=== PATIENT | male | born 1970 | race Caucasian/White ===

== ENCOUNTER 2022-03-22 11:34 | Observation (INO) | payer BC, OTHER ==
--- OUTSIDE RECORDS SUMMARY | 2022-03-22 11:49 | XMS REPORT | Continuity of Care Document ---
:1970 Author Organization [facility] t Address [address] [place] [address] Dr. Hsieh [address] [place] [address] Care Team Providers Name Role Phone SHIRLEYDARIN RIDGE Talya Primary Care Physician Unavailable DAR GAITAN Attending Clinician Unavailable Dar Art Attending Clinician Doctor Unassigned, [facility] Attending Clinician Unavailable LUÍS ANDERSON Attending Clinician Unavailable Luís Arevalo Attending Clinician Shaina Dyson MD Attending Clinician SHAINA DYSON Attending Clinician Unavailable DAR GAITAN Admitting Clinician Unavailable SHAINA DYSON Admitting Clinician Unavailable Payers Payer Name Policy Type Policy Number Effective Date Expiration Date [facility] [id number] 2019 00:00:00 Problems Condition Condition Condition Status Onset Resolution Last Treating Co mments Source Name Details Category Date Date Treatment Clinician Date No known No known Disease Unive rs active active ity of problems problems [facility] Allergies, Adverse Reactions, Alerts Allergy Allergy Status Severity Reaction(s) Onset Inactive Treating Comm ents Source Name Type Date Date Clinician NO KNOWN Drug Active Univers ALLERGIE Class ity of [facility] Social History Social Habit Start Date Stop Date Quantity Comments Source Exposure to 2022-03-04 2022-03-14 Not sure [facility] SARS-CoV-2 (event) 00:00:00 09:57:00 Medica l Branch Sex Assigned At [birth year] [facility] 00:00:00 00:00:00 Medical Branch Smoking Status Start Date Stop Date Source Tobacco smoking consumption [facility] Medical unknown Branch Medications Ordered Filled Start Stop Current Ordering Indication Dosage Frequency Signature Comments Components Source Medication Medication Date Date Medication? Clinician (SIG) Name Name dicyclomine 2021-04 No 20mg 20 mg, Uni vers (BENTYL) 05-14 Intramuscu ity of injection 17:15: 16:29 [place], ONCE[place] 20 mg 00 :00 1 dose, On Medical Sun Branch 03/14/22 at 1115, TEREZA NaCl 0.9% 2021-04 No 1000mL at 999 Uni vers (NS) bolus 05-14 mL/hr, ity of infusion 17:00: 18:35 1,000 mL, Micah as 1,000 mL 00 :00 IV Medical Infusion, Branch ONCE, 1 dose, On Sun03/14/22 at 1100, TEREZA ondansetron 2021-04 No 4mg 4 mg, Slow Univers (ZOFRAN 05-14 IV Push, ity of (PF)) 16:15: 16:11 ONCE, 1 [place] injection 4 00 :00 dose, On Medi [place] mg Sun Branch 03/14/22 at 1015, TEREZA dicyclomine 2021-04 Yes [id number] 20mg Take 1 Univers 20 mg 1-22 tablet by ity of tablet 00:00: mouth 4 [place] 00 (four) Medical times Branch daily as needed for Abdominal pain. ondansetron 2021-04 Yes [id number] 4mg Take 1 Univers 4 mg 1-22 tablet by ity of disintegrat 00:00: mouth [place] ing tablet 00 every 8 Medica l (eight) Branch hours as needed for Nausea and Vomiting (N/V). NaCl 0.9% No 1000mL at 999 Uni vers (NS) bolus 12-21 0901 mL/hr, ity of infusion 23:15: 00:13 1,000 mL, Micah as 1,000 mL 00 :00 IV Medical Infusion, Branch ONCE, 1 dose, On 8/31/22 at 1815, STAT dexamethaso 2020-0 2020- No 10mg 10 mg, Uni vers ne 05-13 Intramuscu ity of (DECADRON 14:00: 13:04 lar, ONCE, [place] PHOSPHATE) 00 :00 1 dose, Medica l injection Tue Branch 10 mg 05/13/19 at 0800, STAT ibuprofen 2020-0 Yes [id number] 800mg Take 1 U nivers 800 mg 1-21 tablet by ity of tablet 00:00: mouth [place] 00 every 8 Medical (eight) Branch hours as needed for Pain (scale 4-6). ibuprofen 2020-0 Yes [id number] 800mg Take 1 U nivers 800 mg 1-21 tablet by ity of tablet 00:00: mouth [place] 00 every 8 Medical (eight) Branch hours as needed for Pain (scale 4-6). ibuprofen 2020-0 Yes [id number] 800mg Take 1 U nivers 800 mg 1-21 tablet by ity of tablet 00:00: mouth [place] 00 every 8 Medical (eight) Branch hours as needed for Pain (scale 4-6). ibuprofen 2020-0 Yes [id number] 800mg Take 1 U nivers 800 mg 1-21 tablet by ity of tablet 00:00: mouth [place] 00 every 8 Medical (eight) Branch hours as needed for Pain (scale 4-6). ibuprofen 2020-0 Yes [id number] 800mg Take 1 U nivers 800 mg 1-21 tablet by ity of tablet 00:00: mouth [place] 00 every 8 Medical (eight) Branch hours as needed for Pain (scale 4-6). acetaminoph 2014-04 Yes 1{tbl} Take 1 Tab Univers en-codeine 1-03 by mouth ity o f (TYLENOL-CO 00:00: every 4 [place] as DEINE #3) 00 (four) Medical 300-30 mg hours as Branch tablet needed for Pain (scale 7-10). acetaminoph 2014-04 Yes 1{tbl} Take 1 Tab Univers en-codeine 1-03 by mouth ity o f (TYLENOL-CO 00:00: every 4 [place]ah as DEINE #3) 00 (four) Medical 300-30 mg hours as Branch tablet needed for Pain (scale 7-10). acetaminoph 2014-04 Yes 1{tbl} Take 1 Tab Univers en-codeine 1-03 by mouth ity o f (TYLENOL-CO 00:00: every 4 [place] as DEINE #3) 00 (four) Medical 300-30 mg hours as Branch tablet needed for Pain (scale 7-10). acetaminoph 2014-04 Yes 1{tbl} Take 1 Tab Univers en-codeine 1-03 by mouth ity o f (TYLENOL-CO 00:00: every 4 Micah as DEINE #3) 00 (four) Medical 300-30 mg hours as Branch tablet needed for Pain (scale 7-10). acetaminoph 2014-04 Yes 1{tbl} Take 1 Tab Univers en-codeine 1-03 by mouth ity o f (TYLENOL-CO 00:00: every 4 [place]ah as DEINE #3) 00 (four) Medical 300-30 mg hours as Branch tablet needed for Pain (scale 7-10). Vital Signs Vital Name Observation Time Observation Value Comments Source Heart rate 2022-03-14 17:50:00 91 /min [facility] Respiratory rate 2022-03-14 17:50:00 17 /min [facility] Oxygen saturation in 2022-03-14 17:50:00 98 /min [facility] Arterial blood by [facility] Pulse oximetry Branch Systolic blood 2022-03-14 17:50:00 116 mm[facility]Hg[facility] 2022-03-14 17:50:00 78 mm[Hg] Unive [facility] Body temperature 2022-03-14 15:58:00 36.67 Samantha [facility] Body height 2022-03-14 15:58:00 175.3 cm [facility] Body weight 2022-03-14 15:58:00 80.74 kg [facility] BMI 2022-03-14 15:58:00 26.29 kg/m2 [facility] Systolic blood 2021-12-21 23:28:00 141 mm[Hg] Univer [facility]ity [facility] Diastolic blood 2021-12-21 23:28:00 99 mm[Hg] [facility] 2021-12-21 23:28:00 105 /min [facility] Oxygen saturation in 2021-12-21 23:28:00 99 /min University of Arterial blood by [facility] Pulse oximetry Branch Body temperature 2021-12-21 21:05:00 36.94 Samantha [facility] Respiratory rate 2021-12-21 21:05:00 18 /min [facility] Body height 2021-12-21 21:05:00 175.3 cm Universi ty of [facility] Body weight 2021-12-21 21:05:00 95.255 kg Universi ty of [facility] BMI 2021-12-21 21:05:00 31.01 kg/m2 Universi ty of [facility] Body height 2019-05-13 12:17:00 175.3 cm Universi ty of [facility] Body weight 2019-05-13 12:17:00 99.791 kg Universi ty of [facility] BMI 2019-05-13 12:17:00 32.49 kg/m2 Universi ty [facility] Oxygen saturation in 2019-05-13 12:17:00 98 /min University of Arterial blood by [facility] Pulse oximetry Branch Systolic blood 2019-05-13 12:17:00 144 mm[Hg] [facility] sit of pressure [facility] Diastolic blood 2019-05-13 12:17:00 97 mm[Hg] [facility] Heart rate 2019-05-13 12:17:00 73 /min Universi ty [facility] Body temperature 2019-05-13 12:17:00 36.11 Samantha [facility] Respiratory rate 2019-05-13 12:17:00 12 /min [facility] Procedures Procedure Date / Time Performing Clinician Source Performed US GALL BLADDER 2022-03-14 16:51:00 Dar Gaitan [facility] LIPASE 2022-03-14 16:08:00 Dar Gaitan [facility] TROPONIN I 2022-03-14 16:08:00 Dar Gaitan [facility] COMP. METABOLIC PANEL 2022-03-14 16:08:00 Dar Gaitan [facility] ([id number]) [facility] CBC WITH DIFF 2022-03-14 16:08:00 Dar Gaitan [facility] PROTHROMBIN TIME / INR 2022-03-14 16:08:00 Dar Gaitan [facility] URINALYSIS 2022-03-14 16:06:00 Dar Gaitan [facility] CONSENT/REFUSAL FOR 2022-03-14 15:50:19 Doctor Unassigned, No [facility] [place] [facility] Name Medical Branch LIPASE 2021-12-21 22:16:00 Luís Anderson [facility] CBC WITH DIFF 2021-12-21 22:16:00 Luís Anderson [facility] CONSENT/REFUSAL FOR 2021-12-21 20:56:27 Doctor Unassigned, No [facility] Name [facility] AUTHORIZATION FOR 2019-07-03 05:01:00 Doctor Unassigned, No [facility] RELEASE OF PHI Name [facility] XR LUMBAR SPINE 3 VW 2019-05-13 12:52:24 Shaina Dyson [facility] Encounters Start End Encounter Admission Attending Care Care Encounter Source Date/Time Date/Time Type Type Clinicians Facility Department ID 2022-03-14 2022-03-14 Emergency [facility] [id number] Univers 09:59:00 12:40:00 DAR sanders [facility] 2022-03-14 2022-03-14 Emergency Arnie [facility] [id number] Univers 09:59:00 12:40:00 Dar DALTON 350.1.13.10 i ty of [place] 4.2.7.2.686 [facility] [id number] [facility] 084 Branch 2022-03-14 2022-03-14 Orders Doctor TERESO [id number] Univers 00:00:00 00:00:00 Only UnassignedARELI 350.1.13.[address] [place] [facility] 4.2.7.2.686 [facility] [id number] [facility] 009 Branch 2021-12-21 2021-12-21 Emergency X MONICA [facility] ERT [id number] Univers 16:07:00 19:12:00 LUÍS sanders [facility] 2021-12-21 2021-12-21 Emergency [facility] [id number] Univers 16:07:00 19:12:00 Luís DALTON 350.1.13.10 i ty [facility] 4.2.7.2.686 [facility] [id number] [address] 2019-07-03 2019-07-03 Orders Doctor TERESO [id number] Univers 00:00:00 00:00:00 Only Unassigned, ARELI 350.1.13.[address] [place] [facility] 4.2.7.2.686 [place] [id number] [address] 2019-05-13 2019-05-13 Emergency [facility] [id number] Univers 06:13:04 07:59:00 Shaina Dalton 350.1.13.10 ity of [place] 4.2.7.2.686 [facility] [id number] [address] 2019-05-13 2019-05-13 Emergency X [facility] ERT [id number] Univers 06:13:04 07:59:00 [facility] Results Test Description Test Time Test Comments Results Result Comments Source LIPASE 2022-03-14 17:52:25 Test Item Value Reference Range Interpretation Comme nts LIPASE (test code = 6507082068) 22 U/L 0-220 Lab Interpretation (test code = 74722-0) Normal [facility] [id number] 17:04:38 Test Item Value Reference Interpretation Comments Range TROPONIN I (test 0.012 ng/mL See_Comment [Automated code = 7164308733) message] The system which generated this result transmitted reference range : <=0.034. The reference range was not used to interpret this result as normal/abnormal . REANNA (test code = Reference (Normal) REANNA) Range (defined by the 99th percentile reference limit): <= 0.034 ng/mL Note: Cardiac troponin begins to rise 3-4 hours after the onset of ischemia. Repeat in 4-6 hours if the sample was drawn within 3-4 hours of the onset of the symptom and found normal. Diagnosis of myocardial injury is made with acute changes in cTn concentrations with at least one serial sample above the 99th percentile upper reference limit (URL), taken together with the patient's clinical presentation. Biotin has been reported to cause a negative bias, interpret results relative to patient's use of biotin. Lab Interpretation Normal (test code = 83189-1) [facility]. METABOLIC PANEL (70959)2022-03-14 16:52:58 Test Item Value Reference Range Interpretation Comments NA (test code = 137 mmol/L 135-145 9514342486) K (test code = 4.9 mmol/L 3.5-5.0 8285380458) CL (test code = 105 mmol/L 98-108 3967964135) CO2 TOTAL (test code = 12 mmol/L 23-31 L 9472580257) AGAP (test code = 2-16 H 6677524493) BUN (test code = 4 mg/dL 7-23 L 5091943196) GLUCOSE (test code = 106 mg/dL 70-110 0028919385) CREATININE (test code = 0.63 mg/dL 0.60-1.25 4037255266) TOTAL BILI (test code = 0.6 mg/dL 0.1-1.4 2861106458) CALCIUM (test code = 9.8 mg/dL 8.6-10.6 3753279908) T PROTEIN (test code = 6.9 g/dL 6.3-8.2 6661704245) ALBUMIN (test code = 4.7 g/dL 3.5-5.0 2673110486) ALK PHOS (test code = 114 U/L 34-122 8431908871) ALTv (test code = 23 U/L 5-50 1742-6) AST(SGOT) (test code = 37 U/L 13-40 7336443590) eGFR (test code = mL/min/1.73m2 0290912774) REANNA (test code = REANNA) Association of Glomerular Filtration Rate (GFR) and Staging of Kidney Disease* + --+ --+ ------+| GFR (mL/min/1.73 m2) ?| With Kidney Damage ?| ?Without Kidney Damage+ --------+ --------+ +| ?>90 ?| ?Stage one ?| ? Normal ?+ ---+ ---+ -------+| ?60-89 ?| ?Stage two ?| ? Decreased GFR ? + --+ --+ ------+| ?30-59 ?| ?Stage three ?| ? Stage three ? + --+ --+ ------+| ?15-29 ?| ?Stage four ? | ? Stage four ?+ ---+ ---+ -------+| ?<15 (or dialysis) ? ?| ?Stage five ? | ? Stage five ?+ ---+ ---+ -------+ *Each stage assumes the associated GFR level has been in effect for at least three months. ?Stages 1 to 5, with or without kidney disease, indicate chronic kidney disease. Notes: Determination of stages one and two (with eGFR >59mL/min/1.73 m2) requires estimation of kidney damage for at least three months as defined by structural or functional abnormalities of the kidney, manifested by either:Pathological abnormalities or Markers of kidney damage (including abnormalities in the composition of the blood or urine or abnormalities in imaging tests). Lab Interpretation Abnormal (test code = 94216-6) [facility] / [id number] 16:50:34 Test Item Value Reference Range Interpretation Comments PROTIME PATIENT (test See_Comment [Auto mated message] code = 5964-2) The system wh ich generated this result transmitted ref erence range: 12.0 - 1 4.7 Seconds. The re ference range was not u sed to interpret this result as normal/abnor mal. INR (test code = 6301-6) Nor mal INR <1.1; Warfarin Therap eutic range 2.0 to 3. 0 or 2.5 to 3.5, dep ending upon the indica tions. Lab Interpretation (test Normal code = 89691-3) [facility] WITH [id number] 16:32:56 Test Item Value Reference Range Interpretation Comments WBC (test code = See_Comment H [Automated 6690-2) message] The sy stem which generated this result transmitted reference range : 4.20 - 10.70 10*3/?L. The reference range was not used to interpret this result as normal/abnormal . RBC (test code = See_Comment [Automated 789-8) message] The sy stem which generated this result transmitted reference range : 4.26 - 5.52 10*6/?L. The reference range was not used to interpret this result as normal/abnormal . HGB (test code = 14.0 g/dL 12.2-16.4 718-7) HCT (test code = 42.8 % 38.4-49.3 4544-3) MCV (test code = 99.5 fL 81.7-95.6 H 787-2) MCH (test code = 32.6 pg 26.1-32.7 785-6) MCHC (test code = 32.7 g/dL 31.2-35.0 786-4) RDW-SD (test code = 62.2 fL 38.5-51.6 H 98451-7) RDW-CV (test code = 16.8 % 12.1-15.4 H 788-0) PLT (test code = See_Comment [Automated 777-3) message] The sy stem which generated this result transmitted reference range : 150 - 328 10*3/ ?L. The reference r morena was not used to interpret this result as normal/abnormal . MPV (test code = 10.0 fL 9.8-13.0 22662-9) NRBC/100 WBC (test See_Comment [Automat ed code = 7320423926) message] The system which generated this result transmitted reference range : 0.0 - 10.0 /100 WBCs. The refer ence range was not u sed to interpret th is result as normal/abnormal . NRBC x10^3 (test code See_Comment [Auto mated = 8707329259) message] The s ystem which generated this result transmitted reference range : 10*3/?L. The reference range was not used to interpret this result as normal/abnormal . GRAN MAT (NEUT) % 73.8 % (test code = 770-8) IMM GRAN % (test code 0.30 % = 8019792755) LYMPH % (test code = 18.6 % 736-9) MONO % (test code = 6.5 % 5905-5) EOS % (test code = 0.3 % 713-8) BASO % (test code = 0.5 % 706-2) GRAN MAT x10^3(ANC) 9.63 10*3/uL 1.99-6.95 H (test code = 4720155456) IMM GRAN x10^3 (test 0.04 10*3/uL 0.00-0.06 code = 5111158198) LYMPH x10^3 (test code 2.43 10*3/uL 1.09-3.23 = 731-0) MONO x10^3 (test code 0.85 10*3/uL 0.36-1.02 = 742-7) EOS x10^3 (test code = 0.04 10*3/uL 0.06-0.53 L 711-2) BASO x10^3 (test code 0.06 10*3/uL 0.01-0.09 = 704-7) Lab Interpretation Abnormal (test code = 93382-2) [facility] 22:47:58 Test Item Value Reference Range Interpretation Comments LIPASE (test code = 8235164491) 51 U/L 0-220 Lab Interpretation (test code = Normal 11910-3) [facility] WITH [id number] 22:32:40 Test Item Value Reference Range Interpretation Comments WBC (test code = See_Comment H [Automated 9590-2) message] The system which generated this result transmit delma reference range : 4.20 - 10.70 10*3/?L. The reference range was not used to interpret this result as normal/abnormal . RBC (test code = See_Comment [Automated 209-8) message] The system which generated this result transmit delma reference range : 4.26 - 5.52 10*6/?L. The reference range was not used to interpret this result as normal/abnormal . HGB (test code = 15.7 g/dL 12.2-16.4 718-7) HCT (test code = 47.1 % 38.4-49.3 4544-3) MCV (test code = 91.6 fL 81.7-95.6 787-2) MCH (test code = 30.5 pg 26.1-32.7 785-6) MCHC (test code = 33.3 g/dL 31.2-35 786-4) RDW-SD (test code = 55.8 fL 38.5-51.6 H 04818-9) RDW-CV (test code = 16.6 % 12.1-15.4 H 788-0) PLT (test code = See_Comment [Automated 777-3) message] The system which generated this result transmit delma reference range : 150 - 328 10*3/ ?L. The reference range was not u sed to interpret th is result as normal/abnormal . MPV (test code = 9.0 fL 9.8-13 L 21875-8) NRBC/100 WBC (test See_Comment [Automat ed code = 9341970912) message] The system which generated this result transmit delma reference range : 0.0 - 10.0 /100 WBCs. The reference range was not used to interpret this result as normal/abnormal . NRBC x10^3 (test code See_Comment [Auto mated = 3298374490) message] The system which generated this result transmit delma reference range : 10*3/?L. The reference range was not used to interpret this result as normal/abnormal . GRAN MAT (NEUT) % 73.6 % (test code = 770-8) IMM GRAN % (test code 0.70 % = 1622580690) LYMPH % (test code = 19.2 % 736-9) MONO % (test code = 6.0 % 5905-5) EOS % (test code = 0.2 % 713-8) BASO % (test code = 0.3 % 706-2) GRAN MAT x10^3(ANC) 10.00 10*3/uL 1.99-6.95 H (test code = 0674794160) IMM GRAN x10^3 (test 0.09 10*3/uL 0-0.06 H code = 4411988808) LYMPH x10^3 (test code 2.61 10*3/uL 1.09-3.23 = 731-0) MONO x10^3 (test code 0.82 10*3/uL 0.36-1.02 = 742-7) EOS x10^3 (test code = 0.03 10*3/uL 0.06-0.53 L 711-2) BASO x10^3 (test code 0.04 10*3/uL 0.01-0.09 = 704-7) Lab Interpretation Abnormal (test code = 73714-5) [facility] 3 [id number] 12:58:41 1. Mild multilevel degenerative disc disease.2. Moderate facet arthropathy at L4-5 and L5-S1 RL: 3901 AFC: [id number] End of report ORDERING PHYSICIAN: JENNI DYSON TECHNIQUE: Lumbar spine 3 views HISTORY: Back pain COMPARISON: None FINDINGS:There are 5 lumbar vertebra. The alignment of the lumbar spine is normal. There is mild multilevel degenerative disc disease. There is moderate facet arthropathy at L4- 5 and L5-S1. The vertebral body heights are well preserved. [facility], Radiant Results Inft User - 05/13/2019 6:59 AM CSTORDERING PHYSICIAN:SHAINA ABURTOMATECHNIQUE: Lumbar spine 3 viewsHISTORY: Back painCOMPARISON: NoneFINDINGS:There are 5lumbar vertebra.The alignment of the lumbar spine is normal.There is mild multilevel degenerative disc disease.There is moderate facet arthropathy at L4-5 and L5-S1.The vertebral body heights are well p reserved.IMPRESSION1. Mild multilevel degenerative disc disease.2. Moderate facet arthropathy at L4-5 and L5-S1RL: 3901AFC: [id number] of report [facility]"
--- NOTE | 2022-03-22 13:32 | ER ---
Nurse's Notes [facility] Name: Jim Porras Age: 52 yrs Sex: Male : 1970 Arrival Date: 03/22/2022 Time: 11:36 Bed 14 Private MD: Yinka Malik P Diagnosis: Abdominal Pain - Intractable Presentation: 03/22 12:00 Chief complaint: Patient states: Gallbladder problems for 2 months. Sent in for eval by ll1 Dr. Malik. Coronavirus screen: Vaccine status: Patient reports being unvaccinated. Client denies travel out of the [place] in the last 14 days. At this time, the client does not indicate any symptoms associated with coronavirus-19. Ebola Screen: Patient denies travel to an Ebola-affected area in the 21 days before illness onset. Initial Sepsis Screen: Does the patient meet any 2 criteria? No. Patient's initial sepsis screen is negative. Does the patient have a suspected source of infection? Yes: Acute abdominal pain. Risk Assessment: Do you want to hurt yourself or someone else? Patient reports no desire to harm self or others. Onset of symptoms was January 20, 2022. 12:00 Method Of Arrival: Ambulatory ll1 12:00 Acuity: TISHA 3 ll1 Triage Assessment: 12:02 General: Appears uncomfortable, ill, Behavior is cooperative, appropriate for age. ll1 Pain: Complains of pain in abdomen Pain currently is 10 out of 10 on a pain scale. Neuro: No deficits noted. Cardiovascular: No deficits noted. Respiratory: No deficits noted. GI: Reports upper abdominal pain, nausea, vomiting. Historical: - Allergies: 12:00 No Known Allergies; ll1 - PMHx: 12:00 None; ll1 - PSHx: 12:00 None; ll1 - Immunization history:: Client reports having NOT received the Covid vaccine. - Social history:: Smoking status: Patient reports the use of cigarette tobacco products, smokes one pack cigarettes per day. Screenin:58 Abuse screen: Denies threats or abuse. Denies injuries from another. Nutritional db screening: No deficits noted. Tuberculosis screening: No symptoms or risk factors identified. Fall Risk None identified. No fall in past 12 months (0 pts). No secondary diagnosis (0 pts). No IV (0 pts). Ambulatory Aid- None/Bed Rest/Nurse Assist (0 pts). Gait- Normal/Bed Rest/Wheelchair (0 pts) Mental Status- Oriented to own ability (0 pts). Total Davalos Fall Scale indicates No Risk (0-24 pts). Assessment: 13:25 Reassessment: No changes from previously documented assessment. States he is leaving "I ll1 guess y'all don't have time for Dr. Springer patients, this is ridiculous." Gait steady out ER doors. Charge Nurse informed. 13:45 Reassessment: No changes from previously documented assessment. Gait steady to exam ll1 room #14. 14:56 Reassessment: Patient appears in no apparent distress at this time. Patient and/or db family updated on plan of care and expected duration. Pain level reassessed. Patient is alert, oriented x 3, equal unlabored respirations, skin warm/dry/pink. General: Appears in no apparent distress. distressed, uncomfortable, Behavior is calm, cooperative, appropriate for age. Pain: Complains of pain in abdomen. Neuro: No deficits noted. Level of Consciousness is awake, alert, obeys commands, Oriented to person, place, time, situation, Appropriate for age Speech is normal. Cardiovascular: No deficits noted. Respiratory: No deficits noted. Airway is patent. GI: Reports lower abdominal pain. : No deficits noted. : No signs and/or symptoms were reported regarding the genitourinary system. EENT: No deficits noted. No signs and/or symptoms were reported regarding the EENT system. Derm: No deficits noted. No signs and/or symptoms reported regarding the dermatologic system. Musculoskeletal: No deficits noted. No signs and/or symptoms reported regarding the musculoskeletal system. 15:25 Reassessment: Patient appears in no apparent distress at this time. NOTIFIED LAB FOR db RECOLLECT. 15:40 Reassessment: LAB FOR RECOLLECT AT BEDSIDE. db 17:48 Reassessment: PATIENT TO CT. db 19:10 General: Appears in no apparent distress. uncomfortable, well groomed, well developed, pf1 Behavior is calm, cooperative, appropriate for age, quiet. 19:10 Pain: Complains of pain in Patient C/O RUQ pain of 6,onset 2months. Patient stated has pf1 lost a total of 64lbs in the past 58 days. Neuro: No deficits noted. Level of Consciousness is awake, alert, obeys commands, Oriented to person, place, time, situation. Cardiovascular: No deficits noted. Respiratory: No deficits noted. Airway is patent Breath sounds are clear bilaterally. GI: Abd is soft Abdomen is tender to palpation in right upper quadrant Reports nausea, vomiting. : No deficits noted. No signs and/or symptoms were reported regarding the genitourinary system. EENT: No deficits noted. No signs and/or symptoms were reported regarding the EENT system. Derm: No deficits noted. No signs and/or symptoms reported regarding the dermatologic system. Vital Signs: 12:00 BP 140 / 86; Pulse 87; Resp 16; Temp 97.0; Pulse Ox 99% ; Weight 74.39 kg; Height 5 ft. ll1 9 in. (175.26 cm); Pain 9/10; 15:14 BP 131 / 91; Pulse 85; Resp 16; Pulse Ox 100% on R/A; db 16:04 BP 118 / 87; Pulse 77; Resp 18; Pulse Ox 100% on R/A; db 17:00 BP 121 / 76; Pulse 81; Resp 16; Pulse Ox 100% ; db 17:47 BP 129 / 93; Pulse 87; Resp 16; Pulse Ox 99% on R/A; Pain 8/10; db 18:35 BP 133 / 94; Pulse 83; Resp 16; Pulse Ox 99% on R/A; Pain 6/10; db 19:00 BP 118 / 80; Pulse 75; Resp 18; Temp 98.4; Pulse Ox 97% ; Pain 6/10; pf1 20:00 BP 133 / 87; Pulse 84; Resp 20; Temp 98.2; Pulse Ox 100% ; Pain 8/10; pf1 20:52 Pain 0/10; pf1 21:35 BP 125 / 88; Pulse 74; Resp 18; Temp 98.2; Pulse Ox 97% ; Pain 0/10; pf1 12:00 Body Mass Index 24.22 (74.39 kg, 175.26 cm) ll1 ED Course: 11:36 Patient arrived in ED. as 11:37 Yinka Malik MD is Private Physician. as 11:59 Arm band placed on. 1 12:01 [facility] 12:02 Shannen Feliciano MD is Attending Physician. [facility] 12:02 Triage completed. ll1 13:46 Patient placed in an exam room, on a stretcher. ll1 14:35 Amy Corona, SPENCER is Primary Nurse. db 14:56 Missed attempt(s): 20 gauge in left antecubital area. Bleeding controlled, band aid db applied, catheter tip intact. 14:59 Patient has correct armband on for positive identification. Bed in low position. Call db light in reach. Side rails up X 1. 15:24 Inserted saline lock: 22 gauge in right wrist, using aseptic technique. em1 18:03 CT Abd/Pelvis - IV Contrast Only In Process Unspecified. EDMS 19:44 Yinka Malik MD is Hospitalizing Provider. [facility] 20:00 Door closed. Lights dimmed. Warm blanket given. Verbal reassurance given. pf1 20:32 No provider procedures requiring assistance completed. IV is patent, with good blood pf1 return, Flushed right Patient has 22 gauge IV to Right wrist. 20:43 SARS RAPID Sent. pf1 20:51 Diet: Patient is NPO. pf1 20:51 Urine collected:. pf1 21:36 Patient admitted, IV remains in place. pf1 Administered Medications: 15:20 Drug: Zofran (Ondansetron) 4 mg Route: IVP; Site: right wrist; db 16:42 Follow up: Response: No adverse reaction db 15:21 Drug: morphine 4 mg Route: IVP; Infused Over: 4 mins; Site: right wrist; db 16:42 Follow up: Response: No adverse reaction db 17:47 Drug: morphine 4 mg Route: IVP; Infused Over: 4 mins; Site: right wrist; db 18:34 Follow up: Response: No adverse reaction db 20:25 Drug: Dilaudid (HYDROmorphone) 1 mg Route: IVP; Site: right wrist; pf1 20:43 Follow up: Response: Pain is decreased pf1 Medication: 14:58 VIS not applicable for this client. db Output: 20:53 Urine: 400ml (Voided); Total: 400ml. pf1 Outcome: 13:32 Patient left the ED. ll1 19:46 Decision to Hospitalize by Provider. jmm 21:36 Admitted to Med/surg accompanied by tech, via wheelchair, room 203, with chart, Report pf1 called to SPENCER Ervin 21:36 Condition: improved 21:36 Instructed on the need for admit. 21:40 Patient left the ED. pf1 Signatures: Dispatcher [employer] EDMS Stephane nAsari PA PA jmm Martinez, Amelia as Martinez, Eric em1 Irene Moran RN RN ll1 Amy Corona RN RN db Renetta singh RN RN pf1
[2022-03-22] MEDS ORDERED: MORPHINE 4 MG/ML SYR ONE ×2 (14:31→17:44)
[2022-03-22] MEDS ORDERED: ONDANSETRON 4 MG/2 ML VIAL ONE (14:31)
[2022-03-22 16:14] LABS: Urine Blood Negative (Negative); Urine Glucose Negative (Negative); Urine Protein Negative (Negative); Urine Specific Gravity >=1.030 (1.005-1.030)
[2022-03-22 17:18] LABS: Absolute Lymphocytes (CBC) 1.6 K/uL (0.7-4.9); Lymphocytes % 37.1 % (15.3-44.8); MCV 97.6 fL (80-100); MPV 7.4 fL (7.6-11.3)
[2022-03-22 17:42] LABS: Albumin 3.5 g/dL (3.4-5.0); Bilirubin Total 0.2 mg/dL (0.2-1.0); Potassium 3.2 mmol/L (3.5-5.1); Protein, Total 6.9 g/dL (6.4-8.2)
--- NOTE | 2022-03-22 18:17 | RAD REPORT ---
EXAM DESCRIPTION: CTAbdomen Pelvis W Contrast - 03/22/2022 6:01 pm CLINICAL HISTORY: abdominal pain COMPARISON: No comparisons TECHNIQUE: CT of the abdomen and pelvis was performed with IV contrast. All CT scans are performed using dose optimization technique as appropriate and may include automated exposure control or mA/KV adjustment according to patient size. FINDINGS: Lower chest: No acute abnormality. Liver: No acute abnormality or suspicious lesions. Biliary: Distended gallbladder. Common bile duct is dilated measuring 13 mm. Stomach: Gastric varices along the proximal stomach. Duodenum: No significant focal abnormality. Pancreas: Pancreatic atrophy. Spleen: No significant abnormality. Adrenal: No suspicious lesions. Kidney/ureter: No hydronephrosis. Punctate bilateral renal calculi. Too small to characterize and/or benign appearing renal lesions are noted. Retroperitoneum: Mild fluid at the tip of the pancreas and extending into the left retroperitoneum. Vascular: No aneurysm. Proximal splenic vein is occluded. Bowel: No bowel obstruction. Normal appendix.. Peritoneum: No ascites or free air. Bladder: Grossly unremarkable. Reproductive: No adnexal masses. Bones: No acute fracture. Pars defects at L5-S1 . Other: n/a IMPRESSION: 1. Distended gallbladder with extrahepatic biliary ductal dilatation. No CT evidence of acute cholecystitis. MRCP or ERCP could better evaluate for choledocholithiasis. No obstructing mass is seen. 2. Small volume of fluid at the tail of the pancreas with pancreatic atrophy and splenic vein thrombo sis likely sequela of remote pancreatitis. Also noted are gastric varices as a result of collateral f low.
--- NOTE | 2022-03-22 19:47 | EDPHYS ---
Physician Documentation [facility] Name: Jim Porras Age: 52 yrs Sex: Male : 1970 Arrival Date: 03/22/2022 Time: 11:36 Bed 14 Private MD: Yinka Malik P ED Physician Shannen Feliciano HPI: 03/22 19:42 This 52 yrs old Male presents to ER via Ambulatory with complaints of gallbladder. jmm 19:42 The patient presents with abdominal pain. Onset: The symptoms/episode began/occurred jmm gradually. The symptoms do not radiate. Associated signs and symptoms: Pertinent positives: nausea and vomiting. The symptoms are described as achy. Modifying factors: The symptoms are alleviated by nothing, the symptoms are aggravated by nothing. The patient has not experienced similar symptoms in the past. Patient has been seen 2 times at [place] ED diagnosed with cholelithiasis. Patient visited with Dr. Malik who sent the patient to the ED for further evaluation.. Historical: - Allergies: 12:00 No Known Allergies; ll1 - PMHx: 12:00 None; ll1 - PSHx: 12:00 None; ll1 - Immunization history:: Client reports having NOT received the Covid vaccine. - Social history:: Smoking status: Patient reports the use of cigarette tobacco products, smokes one pack cigarettes per day. ROS: 19:42 Constitutional: Negative for fever, chills, and weight loss, Cardiovascular: Negative jmm for chest pain, palpitations, and edema, Respiratory: Negative for shortness of breath, cough, wheezing, and pleuritic chest pain. 19:42 Abdomen/GI: Positive for abdominal pain. 19:42 All other systems are negative. Exam: 19:42 Head/Face: atraumatic. Eyes: EOMI, no conjunctival erythema appreciated ENT: Moist jmm Mucus Membranes Neck: Trachea midline, Supple Chest/axilla: Normal chest wall appearance and motion. Cardiovascular: Regular rate and rhythm. No edema appreciated Respiratory: Normal respirations, no respiratory distress appreciated 19:42 Back: Normal ROM Skin: General appearance color normal MS/ Extremity: Moves all extremities, no obvious deformities appreciated, no edema noted to the lower extremities Neuro: Awake and alert Psych: Behavior is normal, Mood is normal, Patient is cooperative and pleasant 19:42 Constitutional: The patient appears alert, awake, uncomfortable. 19:42 Abdomen/GI: Inspection: abdomen appears normal, Bowel sounds: normal, Palpation: soft, mild abdominal tenderness, in the epigastric area. Vital Signs: 12:00 BP 140 / 86; Pulse 87; Resp 16; Temp 97.0; Pulse Ox 99% ; Weight 74.39 kg; Height 5 ft. ll1 9 in. (175.26 cm); Pain 9/10; 15:14 BP 131 / 91; Pulse 85; Resp 16; Pulse Ox 100% on R/A; db 16:04 BP 118 / 87; Pulse 77; Resp 18; Pulse Ox 100% on R/A; db 17:00 BP 121 / 76; Pulse 81; Resp 16; Pulse Ox 100% ; db 17:47 BP 129 / 93; Pulse 87; Resp 16; Pulse Ox 99% on R/A; Pain 8/10; db 18:35 BP 133 / 94; Pulse 83; Resp 16; Pulse Ox 99% on R/A; Pain 6/10; db 19:00 BP 118 / 80; Pulse 75; Resp 18; Temp 98.4; Pulse Ox 97% ; Pain 6/10; pf1 20:00 BP 133 / 87; Pulse 84; Resp 20; Temp 98.2; Pulse Ox 100% ; Pain 8/10; pf1 20:52 Pain 0/10; pf1 21:35 BP 125 / 88; Pulse 74; Resp 18; Temp 98.2; Pulse Ox 97% ; Pain 0/10; pf1 12:00 Body Mass Index 24.22 (74.39 kg, 175.26 cm) 1 MDM: 12:24 Patient medically screened. [facility] 19:44 Data reviewed: vital signs, nurses notes. Counseling: I had a detailed discussion with pauline the patient and/or guardian regarding: the historical points, exam findings, and any diagnostic results supporting the discharge/admit diagnosis, lab results, radiology results, the need for further work-up and treatment in the hospital. ED course: I discussed the patient with Dr. Malik whom recommended admission.. 03/22 12:02 Order name: CBC with Diff; Complete Time: 17:34 [facility] 03/22 12:02 Order name: CMP; Complete Time: 17:43 [facility] 03/22 12:02 Order name: Lipase; Complete Time: 17:43 [facility] 03/22 16:14 Order name: Urine Dipstick-Ancillary; Complete Time: 16:15 [facility] 03/22 19:55 Order name: Basic Metabolic Panel [facility] 03/22 19:55 Order name: Basic Metabolic Panel [facility] 03/22 19:55 Order name: CBC with Automated Diff [facility] 03/22 19:55 Order name: CBC with Automated Diff [facility] 03/22 19:55 Order name: Lipase [facility] 03/22 19:55 Order name: Lipase [facility] 03/22 19:55 Order name: Liver (Hepatic) Function [facility] 03/22 19:55 Order name: Liver (Hepatic) Function [facility] 03/22 20:22 Order name: SARS RAPID bb 03/22 21:03 Order name: SARS-COV-2 Antigen Rapid [facility] 03/22 12:02 Order name: IV Saline Lock; Complete Time: 15:21 [facility] 03/22 12:02 Order name: Labs collected and sent; Complete Time: 14:56 [facility] 03/22 13:51 Order name: CT Abd/Pelvis - IV Contrast Only; Complete Time: 18:19 [facility] 03/22 13:52 Order name: Urine Dipstick-Ancillary (obtain specimen); Complete Time: 16:40 [facility] 03/22 15:09 Order name: Labs - recollect needed: recollect green and lavender; Complete Time: 16:40 [facility] 03/22 19:55 Order name: NPO [facility] 03/22 19:55 Order name: Cholangiogram EDAL Administered Medications: 15:20 Drug: Zofran (Ondansetron) 4 mg Route: IVP; Site: right wrist; db 16:42 Follow up: Response: No adverse reaction db 15:21 Drug: morphine 4 mg Route: IVP; Infused Over: 4 mins; Site: right wrist; db 16:42 Follow up: Response: No adverse reaction db 17:47 Drug: morphine 4 mg Route: IVP; Infused Over: 4 mins; Site: right wrist; db 18:34 Follow up: Response: No adverse reaction db 20:25 Drug: Dilaudid (HYDROmorphone) 1 mg Route: IVP; Site: right wrist; pf1 20:43 Follow up: Response: Pain is decreased pf1 Disposition Summary: 03/22/22 19:46 Hospitalization Ordered Hospitalization Status: Observation jmm Provider: Yinka Malik Location: Telemetry/MedSurg (observation) jmm Condition: Stable jmm Problem: new jmm Symptoms: are unchanged jmm Bed/Room Type: Standard jmm Room Assignment: 203(03/22/22 21:11) cg Diagnosis - Abdominal Pain - Intractable jmm Forms: - Medication Reconciliation Form jmm - SBAR form jmm Signatures: Dispatcher [employer] EDColeen Eric Shelly, WAREHOUSE TEAM MEMBER-C WAREHOUSE TEAM MEMBER-Csnw Stephane Ansari PA PA jmm Garcia, Cindy, RN RN cg Irene Moran RN RN ll1 Amy Corona RN RN db Renetta singh RN RN pf1 Corrections: (The following items were deleted from the chart) 13:48 13:32 after being seen by provider [facility] 13:48 13:32 wait time [facility] 21:11 19:46 jmm cg
[2022-03-22] MEDS ORDERED: ONDANSETRON 4 MG/2 ML VIAL IV PRN (19:50)
[2022-03-22] MEDS ORDERED: ACETAMINOPHEN 500 MG TAB PO PRN (19:50)
[2022-03-22] MEDS ORDERED: HYDROMORPHONE HCL 1 MG/ML INJ ONE (20:26)
[2022-03-22 21:02] LABS: SARS-CoV-2 Antigen Rapid Res Negative (Negative)
[2022-03-22 22:05] VITALS: BMI 24.5
[2022-03-22] MEDS: D5 0.45 NS 1,000 ML IV SCH (22:10)
[2022-03-22] MEDS: MORPHINE 4 MG/ML SYR IV PRN (22:34)
[2022-03-23] MEDS: MORPHINE 4 MG/ML SYR IV PRN ×8 (01:16→23:14)
[2022-03-23 02:18] LABS: Urine Bilirubin NEGATIVE (Negative); Urine Blood Negative (Negative); Urine Clarity Clear (Clear); Urine Color Light-Yellow (Yellow); Urine Glucose NEGATIVE (Negative); Urine Mucus Slight /HPF (None Seen); Urine Protein TRACE (Negative); Urine RBC <5 /HPF (None Seen); Urine Urobilinogen Normal (Normal)
[2022-03-23 02:25] LABS: Specific Gravity > 1.030 (1.005-1.030)
[2022-03-23] MEDS: D5 0.45 NS 1,000 ML IV SCH ×5 (04:00→20:00)
[2022-03-23 04:04] LABS: Absolute Lymphocytes (CBC) 1.6 K/uL (0.7-4.9); Hematocrit 34.3 % (39.6-49.0); Lymphocytes % 38.6 % (15.3-44.8); MCV 98.5 fL (80-100); MPV 7.7 fL (7.6-11.3); RBC Red Blood Cell Count 3.49 M/uL (4.33-5.43)
[2022-03-23 04:37] LABS: ALT/SGPT 22 U/L (12-78); AST/SGOT 22 U/L (15-37); Albumin 3.1 g/dL (3.4-5.0); Alkaline Phosphatase 86 U/L (45-117); BUN Blood Urea Nitrogen 4 mg/dL (7-18); Bicarbonate 23 mmol/L (21-32); Bilirubin Total 0.2 mg/dL (0.2-1.0); Glomerular Filtration Rate 123 ml/min (=/>90); Glucose Level 115 mg/dL (74-106); Lipase 43 U/L (73-393); Potassium 3.1 mmol/L (3.5-5.1); Protein, Total 6.1 g/dL (6.4-8.2); Sodium Level 137 mmol/L (136-145)
[2022-03-23 04:45] LABS: Bilirubin Direct < 0.1 mg/dL (0-0.2)
[2022-03-23] MEDS ORDERED: INFLUENZA VACCINE (for 6+ mo) 0.5 ML DOSE IMVAC ONE (08:00)
[2022-03-23] MEDS: KCL 20 MEQ/100 mL IVPB 20 MEQ/100 ML BAG IV SCH ×3 (11:29→14:00)
--- NOTE | 2022-03-23 12:56 | RAD REPORT ---
EXAM DESCRIPTION: [id number]/1/2022 12:17 pm CLINICAL HISTORY: Abdominal pain COMPARISON: March 22, 2022 CT TECHNIQUE: Magnetic resonance cholangiogram was performed.3D MIP reconstruction performed. Additiona l axial and coronal magnetic resonance imaging of abdomen obtained. 16 cc MultiHance administered int ravenously. Dynamic sequences obtained FINDINGS: The gallbladder is distended. Filling defect within the gallbladder not seen. Trace amount of fluid surrounds the gallbladder. Mild dilatation of the intrahepatic biliary tree. Common bile duct is dilated measuring 9 millimeter Evaluation of the intrahepatic biliary tree is suboptimal secondary to motion artifact. No gross fill ing defect within the common bile duct seen. Pancreatic duct normal caliber IMPRESSION: Gallbladder distention with trace amount of surrounding fluid Dilatation of the intra and extrahepatic biliary tree
[2022-03-23] MEDS ORDERED: Ringers Lactate 1,000 ML IV ONE (13:40)
[2022-03-23] MEDS ORDERED: CEFOXITIN SODIUM 1 GM/VIAL ONE ×2 (13:45→17:17)
[2022-03-23] MEDS ORDERED: SUCCINYLCHOLINE 20 MG/ML (10 ML) IV ONE (13:54)
[2022-03-23] MEDS ORDERED: propofoL 200 MG/20 ML VIAL IV ONE (13:58)
[2022-03-23] MEDS ORDERED: ROCURONIUM 50 MG/5 ML VIAL IV ONE ×2 (13:59→14:39)
[2022-03-23] MEDS ORDERED: FENTANYL CITR 100 MCG/2 ML ONE (13:59)
[2022-03-23] MEDS ORDERED: MIDAZOLAM HCL 2 MG/2 ML INJ ONE (13:59)
[2022-03-23] MEDS ORDERED: ONDANSETRON 4 MG/2 ML VIAL ONE (14:01)
[2022-03-23] MEDS ORDERED: LIDOCAINE 2% MPF 5 ML VIAL ONE (14:01)
--- NOTE | 2022-03-23 14:04 | P.HP ---
Date of Service: 03/23/22 PC: This 52-year-old patient presented to my office yesterday complaining of severe right upper quadrant abdominal pain. Apparently he has been to different emergency rooms in the area. They have documented that he has a dilated lobulated gallbladder, the had seen stones on ultrasound, but said that he was not sick enough to need surgery at that time. I sent him directly to the emergency room for lab work and evaluation. CT scan demonstrates a distended gallbladder. HPC: Patient is a patient has had this pain going on for the last few months. PSHx: Negative PMHx: Negative Social Hx: No known allergies, has a disabled at home that he takes care of Sys R: No cough, wheeze, shortness of breath. No chest pain or palpitations. Denies any urinary complaints. O/E: Awake alert ill looking man in a lot of discomfort. HEENT: Not jaundiced Chest: Air entry equal bilaterally Abd: Patient is extremely tender in the right upper quadrant. [place]: Intact Data: CT scan demonstrates distended gallbladder, had an ultrasound done at [facility] which shows he has small gallstones. Impression: Acute on chronic cholecystitis with cholelithiasis Plan: I will admit the patient for a laparoscopic cholecystectomy with intraoperative cholangiogram. My concern is that the extrahepatic biliary tree shows dilatation without any obstruction. An MRCP was done this morning which is also essentially negative. I will do an intraoperative cholangiogram, we will see if we can pass our catheter into the duodenum. He may still require an ERCP. If that happens we do not have that ability at this hospital at this time. These risks have been explained to the patient, he understands, this morning he is feeling better since he got his some good pain medicine, and is anxious to proceed.
[2022-03-23] MEDS ORDERED: dexAMETHasone 4 MG/ML VIAL ONE (14:52)
[2022-03-23] MEDS ORDERED: KETOROLAC 30 MG/ML INJ ONE (14:52)
[2022-03-23] MEDS ORDERED: EPHEDRINE SULF 50 MG/ML VIAL ONE (14:53)
[2022-03-23] MEDS ORDERED: SUGAMMADEX SODIUM 200 MG/2 ML VIAL IV ONE (15:08)
--- NOTE | 2022-03-23 15:56 | P.OP ---
Preoperative diagnosis: Cholecystitis with cholelithiasis, choledocholithiasis Postoperative diagnosis: Cholecystitis with cholelithiasis, common bile duct obstruction Primary procedure: Laparoscopic cholecystectomy Secondary procedure: Lysis of adhesions Other procedure(s): Intraoperative cholangiogram Anesthesia: General Estimated blood loss: Than 20 cc Specimen: 1 gallbladder and contents Operative Technique: The patient was placed supine on the OR table. After the induction of adequate general endotracheal anesthesia, the area of the abdomen was prepped with a DuraPrep solution, and he was draped in usual aseptic manner. Attention was turned towards the umbilicus. A skin incision was made. This was brought down through the skin and subcutaneous tissue. The Visiport was now used to enter the peritoneal cavity and created pneumoperitoneum to approximately 12 mmHg. A look around we could see that the omentum was actually adherent to the anterior abdominal wall. We were in the space on top of the small bowel but underneath the omentum. The camera was gently pulled back we were able to bluntly dissected off to place another 5 mm trocar on the right lateral side of the abdomen. Looking that we were now able to detach the omentum from the anterior abdominal wall. As we progressed superiorly we were able to get our other 5 mm trochars in. This left us with a trocar in the upper midline, and 2 fives on the right lateral side. The patient was now placed in reverse Trendelenburg. The table was returned to the left. We could visualize the right upper quadrant. It was noted that there were a lot of adhesions to the surface of the gallbladder itself. These were chronic dense adhesions. These were gently taken down. The gallbladder was extraordinarily long in comparison to what we normally see. A grasper was now placed on the body of the gallbladder. Another down by Mckay's pouch. A lot with gentle dissection we were finally able to dissect out and expose the junction of the cystic duct the gallbladder. A clip was placed at this area. An opening was made into the cystic duct through which we obtained a cholangiogram. The cholangiogram showed a dilation of the extrahepatic biliary tree. Down around the distal common bile duct where we would expect to see the instrument portion there was smooth area with no evidence of any filling defect, and no evidence of any narrowing or stricture. However there was no contrast flowing through this area. We gently probed by passing the Cholangiocath down. It did would not go through this area. As we looked however there is some small amount of drainage seeping through the opening, but there we cannot say that the it was normal flow. At this point the Cholangiocath was removed. Clips were placed on the distal portion of the cystic duct. The sixth artery cystic artery was clipped and divided in the usual manner. The gallbladder was now dissected free from the liver bed, placed into an Endo Catch and brought out through the umbilical trocar site. The patient also has an umbilical hernia. Applying the traction to the omentum we were able to decompress it from the umbilicus itself. This defect was now closed using the Endo Close and an absorbable suture. It took 2 sutures to adequately approximate the fascia. At this point the pneumoperitoneum was collapsed, the trochars removed, and izabel were applied to the skin. At the end of the procedure he was stable and sent to the recovery room. Needle sponge and instrument count were correct. No drains were placed. Complications: None Transferred to: Recovery Room Condition: Good
[2022-03-23] MEDS ORDERED: HYDROMORPHONE HCL 1 MG/ML INJ ONE (16:06)
[2022-03-23] MEDS: HYDROMORPHONE HCL 1 MG/ML INJ ONE ×2 (16:15→16:21)
--- NOTE | 2022-03-23 16:43 | RAD REPORT ---
EXAM DESCRIPTION: RAD - Cholangiogram Oper-Xray Or - 03/23/2022 3:51 pm CLINICAL HISTORY: LAP KATHERINE W/ IOC COMPARISON: Cholangiogram dated 03/23/2022 FINDINGS: Cystic duct injection was performed by operating surgeon. Intrahepatic biliary tree is dil ated. Common bile duct appears dilated. No stone is seen in the duct however no contrast is seen pass ing and duodenum suggesting distal common duct obstruction is present. Total fluoro time: 1.0. Seven fluoroscopic images are submitted.
[2022-03-23] MEDS ORDERED: NA CHLORIDE 0.9% 50 ML ONE (17:15)
[2022-03-23] MEDS: CEFOXITIN 1 GM in NA CHLORIDE 0.9% 50 ML IVPB SCH (17:17)
[2022-03-23] MEDS ORDERED: POTASSIUM 25 MEQ EFFERV TAB PO ONE (18:00)
[2022-03-23] MEDS: HYDROCODONE/APAP 7.5/325 MG TAB PO PRN (19:35)
[2022-03-24] MEDS ORDERED: CEFOXITIN SODIUM 1 GM/VIAL ONE (00:17)
[2022-03-24] MEDS ORDERED: NA CHLORIDE 0.9% 50 ML ONE (00:18)
[2022-03-24] MEDS: CEFOXITIN 1 GM in NA CHLORIDE 0.9% 50 ML IVPB SCH (00:19)
[2022-03-24] MEDS: D5 0.45 NS 1,000 ML IV SCH ×3 (00:23→12:00)
[2022-03-24] MEDS: MORPHINE 4 MG/ML SYR IV PRN ×4 (01:46→12:36)
[2022-03-24] MEDS: HYDROCODONE/APAP 7.5/325 MG TAB PO PRN (05:57)
[2022-03-24 05:59] LABS: Hematocrit 32.5 % (39.6-49.0); Lymphocytes % 22.6 % (15.3-44.8); MCV 98.3 fL (80-100); MPV 7.6 fL (7.6-11.3)
[2022-03-24 06:15] LABS: Albumin 3.1 g/dL (3.4-5.0); Bilirubin Direct 0.1 mg/dL (0-0.2); Bilirubin Total 0.4 mg/dL (0.2-1.0); Potassium 3.3 mmol/L (3.5-5.1); Protein, Total 6.1 g/dL (6.4-8.2)
[2022-03-24 10:28] VITALS: O2SAT 92
[2022-03-24 12:34] VITALS: BP 116/73; TEMP 98.8
--- NOTE | 2022-03-24 14:21 | P.PN ---
Date of Service: 03/24/22 S: The patient says he feels remarkably well today, his pain is virtually gone. He just has some mild incisional soreness on the right side where the trochars were. O: Patient looks 100% better today. Vital signs remained stable. Tolerated a diet. Has been up ambulating. Voiding on his own. Anxious to go home. A: I am extremely concerned about this patient's extrahepatic biliary tree. I have not been able to explain why this patient has what appears to be a cut off of the common bile duct. I was concerned and was trying to transfer him yesterday after our cholangiogram showed virtually no flow of contrast into the duodenum. The MRCP that was done did not show any obstructing lesion or reason for this. I discussed the case so far with GI at [facility]. He recommended that we repeat labs today and see how the patient is feeling. [place] that the patient could be discharged and set up for an outpatient procedure. He recommended a possible endoscopic ultrasound. Obviously this would be my decision, based on my findings. From a surgical point of view, quite happy with the conduct of the operation. P: I will discharge the patient today. This is for 2 reasons. He will refuse the transfer, and he is concerned about his . She is disabled at home. Should he have any questions or problems, he will return to the emergency room or contact me. He will see me on Sunday in my office. We will provide for follow-up with him with GI in [place] as an outpatient. I discussed at length with him our findings are concerns and the reason for continuing to find out the etiology of his symptoms. He understands and agrees.
== END 2022-03-24 14:39 | disposition home or self-care (01) ==
LOC: ER 11:34 → ERHOLD 20:00 → 2ND 21:58
PROVIDERS: ADMIT Surgery; ATTEND Surgery
PROC: BF13YZZ Fluoroscopy of Gallbladder and Bile Ducts using Other Contrast (ICD-10-PCS; 2022-03-23)
PROC: 0FT44ZZ Resection of Gallbladder, Percutaneous Endoscopic Approach (ICD-10-PCS; principal; 2022-03-23 11:30)
DX: K80.10 Calculus of gallbladder with chronic cholecystitis without obstruction (principal); K80.51 Calculus of bile duct without cholangitis or cholecystitis with obstruction; F17.210 Nicotine dependence, cigarettes, uncomplicated; Z20.822 Contact with and (suspected) exposure to COVID-19
CPT/HCPCS: 85025 ×3; 81001; 80048 ×2; 36415 ×2; 80076 ×2; 88304; 81003; 83690 ×2; 80053; 74177; 74300; 74181; 94010; 96375; 96374; 99285; 87811; 47563; Q9967; J2704; J1100; J2001; J3480; J2250; J3010; J1170 ×3; J7799 ×4; J7120; J0694 ×3; J2405 ×4; G0378; J0330

== ENCOUNTER 2022-05-13 07:30 | Emergency (ER) | payer BC ==
--- OUTSIDE RECORDS SUMMARY | 2022-05-13 07:34 | XMS REPORT | Continuity of Care Document ---
:1970 Author Organization [facility] t Address [address] [place], [place] [address]mildred Hsieh [address] [place] [address] Care Team Providers Name Role Phone RIDGE BEASLEY Primary Care Physician Unavailable DAR GAITAN Attending Clinician Unavailable Dar Art Attending Clinician Doctor Unassigned, [place] Attending Clinician Unavailable LUÍS ANDERSON Attending Clinician Unavailable Luís Arevalo Attending Clinician Shaina Tai MD Attending Clinician SHAINA TAI Attending Clinician Unavailable DAR GAITAN Admitting Clinician Unavailable SHAINA TAI Admitting Clinician Unavailable Payers Payer Name Policy Type Policy Number Effective Date Expiration Date Charlie prasad [facility] [id number] 2019 00:00:00 Problems Condition Condition Condition Status Onset Resolution Last Treating Co mments Source Name Details Category Date Date Treatment Clinician Date No known No known Disease Unive rs active active ity of problems problems [facility] Allergies, Adverse Reactions, Alerts Allergy Allergy Status Severity Reaction(s) Onset Inactive Treating Comm ents Source Name Type Date Date Clinician NO KNOWN Drug Active Univers ALLERGIE Class ity of S [facility] Social History Social Habit Start Date Stop Date Quantity Comments Source Exposure to 2022-03-04 2022-03-14 Not sure [facility] SARS-CoV-2 (event) 00:00:00 09:57:00 Medica l Branch Sex Assigned At [birth year] [facility] Medical 00:00:00 00:00:00 Center Smoking Status Start Date Stop Date Source Tobacco smoking consumption [facility] Medical unknown Branch Medications Ordered Filled Start Stop Current Ordering Indication Dosage Frequency Signature Comments Components Source Medication Medication Date Date Medication? Clinician (SIG) Name Name dicyclomine 2021-04- No 20mg 20 mg, Uni vers (BENTYL) 05-14 Intramuscu ity of injection 17:15: 16:29 lar, ONCE, [place] 20 mg 00 :00 1 dose, On Medical Tue Branch 03/14/22 at 1115, TEREZA NaCl 0.9% 2021-04- No 1000mL at 999 Uni vers (NS) bolus 05-14 mL/hr, ity of infusion 17:00: 18:35 1,000 mL, Micah as 1,000 mL 00 :00 IV Medical Infusion, Branch ONCE, 1 dose, On 03/14/22 at 1100, TEREZA ondansetron 2021-04 No 4mg 4 mg, Slow Univers (ZOFRAN 05-14 IV Push, ity of (PF)) 16:15: 16:11 ONCE, 1 [place] injection 4 00 :00 dose, On Medi wesley mg e Branch 03/14/22 at 1015, TEREZA dicyclomine 2021-04 Yes [id number] 20mg Take 1 Univers 20 mg 1-22 tablet by ity of tablet 00:00: mouth 4 [place] 00 (four) Medical times Branch daily as needed for Abdominal pain. ondansetron 2021-04 Yes [id number] 4mg Take 1 Univers 4 mg 1-22 tablet by ity of disintegrat 00:00: mouth [place] ing tablet 00 every 8 Medica l (eight) Branch hours as needed for Nausea and Vomiting (N/V). NaCl 0.9% 2021- No 1000mL at 999 Uni vers (NS) bolus 8 09-01 mL/hr, ity of infusion 23:15: 00:13 1,000 mL, Micah as 1,000 mL 00 :00 IV Medical Infusion, Branch ONCE, 1 dose, On Sun12/21/21 at 1815, STAT dexamethaso 0 2020- No 10mg 10 mg, Uni vers ne 05-13 Intramuscu ity of (DECADRON 14:00: 13:04 lar, ONCE, [place] PHOSPHATE) 00 :00 1 dose, Medica l injection Tue Branch 10 mg 05/13/19 at 0800, STAT ibuprofen 2020-0 Yes [id number] 800mg Take 1 U nivers 800 mg 1-21 tablet by ity of tablet 00:00: mouth [place] 00 every 8 Medical (eight) Branch hours as needed for Pain (scale 4-6). ibuprofen 2020-0 Yes [id number] 800mg Take 1 U nivers 800 mg 1-21 tablet by ity of tablet 00:00: mouth [place] 00 every 8 Medical (eight) Branch hours as needed for Pain (scale 4-6). ibuprofen 2020-0 Yes [id number] 800mg Take 1 U nivers 800 mg 1-21 tablet by ity of tablet 00:00: mouth [place] 00 every 8 Medical (eight) Branch hours as needed for Pain (scale 4-6). ibuprofen 2020-0 Yes [id number] 800mg Take 1 U nivers 800 mg 1-21 tablet by ity of tablet 00:00: mouth [place] 00 every 8 Medical (eight) Branch hours as needed for Pain (scale 4-6). ibuprofen 2020-0 Yes [id number] 800mg Take 1 U nivers 800 mg [...] Source Heart rate 2022-03-14 17:50:00 91 /min [facility] Respiratory rate 2022-03-14 17:50:00 17 /min [facility] Oxygen saturation in 2022-03-14 17:50:00 98 /min [facility] Arterial blood by [facility] Pulse oximetry [place] Systolic blood 2022-03-14 17:50:00 116 mm[Hg] [facility] 2022-03-14 17:50:00 78 mm[Hg] Unive [facility] Body temperature 2022-03-14 15:58:00 36.67 Samantha [facility] Body height 2022-03-14 15:58:00 175.3 cm [facility] Body weight 2022-03-14 15:58:00 80.74 kg [facility] BMI 2022-03-14 15:58:00 26.29 kg/m2 [facility] Systolic blood 2021-12-21 23:28:00 141 mm[Hg] Univer sity [facility] Diastolic blood 2021-12-21 23:28:00 99 mm[Hg] Unive rsity of pressure [facility] Heart rate 2021-12-21 23:28:00 105 /min Universi ty of [facility] Oxygen saturation in 2021-12-21 23:28:00 99 /min University of Arterial blood by [facility] Pulse oximetry Branch Body temperature 2021-12-21 21:05:00 36.94 Samantha [facility] [place] [facility] 2021-12-21 21:05:00 18 /min [facility] [place] [facility] Body height 2021-12-21 21:05:00 175.3 cm Universi ty of [facility] Body weight 2021-12-21 21:05:00 95.255 kg Universi ty of [facility] BMI 2021-12-21 21:05:00 31.01 kg/m2 Universi ty [facility] Body temperature 2019-05-13 12:17:00 36.11 Samantha [facility] Respiratory rate 2019-05-13 12:17:00 12 /min [facility] [place] [facility] Body height 2019-05-13 12:17:00 175.3 cm [facility] [place] Body weight 2019-05-13 12:17:00 99.791 kg Universi ty of [facility] BMI 2019-05-13 12:17:00 32.49 kg/m2 Universi ty [facility] [place] [facility] Oxygen saturation in 2019-05-13 12:17:00 98 /min University of Arterial blood by [facility] Pulse oximetry Branch Systolic blood 2019-05-13 12:17:00 144 mm[Hg] Univer sity of pressure [facility] Diastolic blood 2019-05-13 12:17:00 97 mm[Hg] Unive rsity of pressure [facility] Heart rate 2019-05-13 12:17:00 73 /min Universi ty [facility] Procedures Procedure Date / Time Performing Clinician Source Performed US GALL BLADDER 2022-03-14 16:51:00 Dar Gaitan [facility] LIPASE 2022-03-14 16:08:00 Dar Gaitan [facility] TROPONIN I 2022-03-14 16:08:00 Dar Gaitan [facility] COMP. METABOLIC PANEL 2022-03-14 16:08:00 Dar Gaitan [facility] ([id number]) Medical Branch CBC WITH DIFF 2022-03-14 16:08:00 Dar Gaitan [facility] PROTHROMBIN TIME / INR 2022-03-14 16:08:00 Henry Dar [facility] URINALYSIS 2022-03-14 16:06:00 Henry [facility] CONSENT/REFUSAL FOR 2022-03-14 15:50:19 Doctor Unassigned, No [facility] [place] [facility] Name Medical Branch LIPASE 2021-12-21 22:16:00 Luís Anderson [facility] CBC WITH DIFF 2021-12-21 22:16:00 Minor [facility] CONSENT/REFUSAL FOR 2021-12-21 20:56:27 Doctor Unassigned, No Un [facility] DIAGNOSIS AND TREATMENT [facility] AUTHORIZATION FOR 2019-07-03 05:01:00 Doctor Unassigned, No [facility] RELEASE OF PHI [facility] XR LUMBAR SPINE 3 VW 2019-05-13 12:52:24 Shaina Tai [facility] Plan of Care Planned Activity Planned Date Details Comments Source Future Scheduled 2022-04-[address] [facility] Test 00:00:00 (12+) [code = [facility] DEPRESSION SCREENING (12+)] Future Scheduled 2021-12-22 INFLUENZA VACCINE (#1) [facility] 00:00:00 [code = INFLUENZA Medical nter VACCINE (#1)] Future Scheduled 2018-01-14 SHINGLES VACCINES ([address] [facility] Test 00:00:00 2) [code = SHINGLES [facility] VACCINES (1 of 2)] Future Scheduled 2003-01-14 Lipid panel (procedure) [facility] Test 00:00:00 [code = 47127797] Medical Ce nter Future Scheduled 1987-01-14 DTAP/TDAP/TD VACCINES [facility] Test 00:00:00 (1 - Tdap) [code = Medical C enter DTAP/TDAP/TD VACCINES (1 - Tdap)] Future Scheduled 1986-01-14 HEPATITIS C SCREENING [facility] 00:00:00 [code = HEPATITIS C Medical Center SCREENING] Future Scheduled [address] [facility] Test 00:00:00 Counseling and Medical Cente r Screening (12+) [code = Tobacco Cessation Counseling and Screening (12+)] Future Scheduled 1970 COVID-19 VACCINE (#1) [facility] Test 00:00:00 [code = COVID-[address] VACCINE (#1)] Future Scheduled 1968 CT Colonography (combo) [facility] Test 00:00:00 [code = CT Colonography [facility] (combo)] Future Scheduled 1970 Screening for malignant [facility] Test 00:00:00 neoplasm of colon Medical Ce nter (procedure) [code = 341183570] Future Scheduled 1968 Screening for malignant [facility] Test 00:00:00 neoplasm of colon Medical Ce nter (procedure) [code = 080493020] Future Scheduled 1968 Screening for malignant [facility] Test 00:00:00 neoplasm of colon Medical Ce nter (procedure) [code = 178371759] Future Scheduled 1968 Screening for malignant [facility] Test 00:00:00 neoplasm of colon Medical Ce nter (procedure) [code = 726296351] Future Scheduled 1970 Sigmoidoscopy [code = [facility] 00:[facility]:00 Sigmoidoscopy] Medical Cente r Encounters Start End Encounter Admission Attending Care Care Encounter Source Date/Time Date/Time Type Type Clinicians Facility Department ID 2022-03-23 [facility] [id number] [facility] 00:00:00 Encounter [facility] 2022-03-23 [facility] [id number] [facility] 00:00:00 Encounter [facility] 2022-03-14 2022-03-14 Emergency X [facility] ERT [id number] Univers 09:59:00 12:40:00 DAR sanders [facility] 2022-03-14 2022-03-14 Emergency [facility] [id number] Univers 09:59:00 12:40:00 Dar FAYE [id number] michael Justin 4.2.7.2.686 [facility] [id number] [address] 2022-03-14 2022-03-14 Orders Doctor TERESO [id number] Univers 00:00:00 00:00:00 Only Unassigned, ARELI [id number] ity of [place] [facility] 4.2.7.2.686 Micah as [id number] [address] 2021-12-21 2021-12-21 Emergency X [facility] ERT [id number] Univers 16:07:00 19:12:00 [facility] 2021-12-21 2021-12-21 Emergency [facility] [id number] Univers 16:07:00 19:12:00 Luís S BROOK[place]OK [id number] i ty of [place] 4.2.7.2.686 [facility] [id number] [address] 2019-07-03 2019-07-03 Orders Doctor TERESO [id number] Univers 00:00:00 00:00:00 Only Unassigned, ARELI [id number] ity of [place] [facility] 4.2.7.2.686 Micah as [id number] [address] 2019-05-13 2019-05-13 Emergency [facility] [id number] Univers 06:13:04 07:59:00 [facility]aye [id number] ity of [place] 4.2.7.2.[address] [facility] [id number] [address] 2019-05-13 2019-05-13 Emergency X [facility] ERT [id number] Univers 06:13:04 07:59:00 SHAINA [place] [facility] Results Test Description Test Time Test Comments Results Result Comments Source LIPASE 2022-03-14 17:52:25 Test Item Value Reference Range Interpretation Comme nts LIPASE (test code = 8691283196) 22 U/L 0-220 Lab Interpretation (test code = 09098-8) Normal [facility] [id number] 17:04:38 Test Item Value Reference Interpretation Comments Range TROPONIN I (test 0.012 ng/mL See_Comment [Automated code = 5829378983) message] The system which generated this result [...] biotin. Lab Interpretation Normal (test code = 00093-9) [facility]. METABOLIC PANEL (18311)2022-03-14 16:52:58 Test Item Value Reference Range Interpretation Comments NA (test code = 137 mmol/L 135-145 7523154312) K (test code = 4.9 mmol/L 3.5-5.0 7361472378) CL (test code = 105 mmol/L 98-108 7067667981) CO2 TOTAL (test code = 12 mmol/L 23-31 L 5717059789) AGAP (test code = 2-16 H 3890830921) BUN (test code = 4 mg/dL 7-23 L 3821113135) GLUCOSE (test code = 106 mg/dL 70-110 1669592292) CREATININE (test code = 0.63 mg/dL 0.60-1.25 6418000805) TOTAL BILI (test code = 0.6 mg/dL 0.1-1.8 3305889117) CALCIUM (test code = 9.8 mg/dL 8.6-10.6 7233211223) T PROTEIN (test code = 6.9 g/dL 6.3-8.2 6306904291) ALBUMIN (test code = 4.7 g/dL 3.5-5.0 6676444959) ALK PHOS (test code = 114 U/L 34-122 8792322539) ALTv (test code = 23 U/L 5-50 1742-6) AST(SGOT) (test code = 37 U/L 13-40 7564453065) eGFR (test code = mL/min/1.73m2 8391410709) REANNA (test code = REANNA) Association of [...] tests). Lab Interpretation Abnormal (test code = 37658-9) [facility] / [id number] 16:50:34 Test Item Value Reference Range Interpretation Comments PROTIME PATIENT (test See_Comment [Auto mated message] code = 5964-2) The system [employer] generated this result transmitted ref erence range: 12.0 - 1 4.7 Seconds. The re ference range was not u sed to interpret this result as normal/abnor mal. INR (test code = 6301-6) Nor mal INR <1.1; Warfarin Therap eutic range 2.0 to 3. 0 or 2.5 to 3.5, dep ending upon the indica tions. Lab Interpretation (test Normal code = 88528-2) [facility] WITH [id number] 16:32:56 Test Item Value Reference Range Interpretation [...] (test code = 62.2 fL 38.5-51.6 H 75253-9) RDW-CV (test code = 16.8 % 12.1-15.4 H 788-0) PLT (test code = See_Comment [Automated 777-3) message] The sy stem which generated this result transmitted reference range : 150 - 328 10*3/ ?L. The reference r morena was not used to interpret this result as normal/abnormal . MPV (test code = 10.0 fL 9.8-13.0 49872-7) NRBC/100 WBC (test See_Comment [Automat ed code = 2221543614) message] The system which generated this result transmitted reference range : 0.0 - 10.0 /100 WBCs. The refer ence range was not u sed to interpret th is result as normal/abnormal . NRBC x10^3 (test code See_Comment [Auto mated = 1384281442) message] The s ystem which generated this result transmitted reference range : 10*3/?L. The reference range was not used to interpret this result as normal/abnormal . GRAN MAT (NEUT) % 73.8 % (test code = 770-8) IMM GRAN % (test code 0.30 % = 2598526125) LYMPH % (test code = 18.6 % 736-9) MONO % (test code = 6.5 % 5905-5) EOS % (test code = 0.3 % 713-8) BASO % (test code = 0.5 % 706-2) GRAN MAT x10^3(ANC) 9.63 10*3/uL 1.99-6.95 H (test code = 5389905524) IMM GRAN x10^3 (test 0.04 10*3/uL 0.00-0.06 code = 2746543968) LYMPH x10^3 (test code 2.43 10*3/uL 1.09-3.23 = 731-0) MONO x10^3 (test code 0.85 10*3/uL 0.36-1.02 = 742-7) EOS x10^3 (test code = 0.04 10*3/uL 0.06-0.53 L 711-2) BASO x10^3 (test code 0.06 10*3/uL 0.01-0.09 = 704-7) Lab Interpretation Abnormal (test code = 63122-8) [facility] 22:47:58 Test Item Value Reference Range Interpretation Comments LIPASE (test code = 1409757210) 51 U/L 0-220 Lab Interpretation (test code = Normal 52518-0) [facility] WITH [id number] 22:32:40 Test Item Value Reference Range Interpretation Comments WBC (test code = See_Comment H [Automated 2790-2) message] The system which generated this result transmit delma reference range : 4.20 - 10.70 10*3/?L. The reference range was not used to interpret this result as normal/abnormal . RBC (test code = See_Comment [Automated 719-8) message] The system which generated this result [...] (test code = 55.8 fL 38.5-51.6 H 91463-2) RDW-CV (test code = 16.6 % 12.1-15.4 H 788-0) PLT (test code = See_Comment [Automated 777-3) message] The system which generated this result transmit delma reference range : 150 - 328 10*3/ ?L. The reference range was not u sed to interpret th is result as normal/abnormal . MPV (test code = 9.0 fL 9.8-13 L 63506-2) NRBC/100 WBC (test See_Comment [Automat ed code = 3429678485) message] The system which generated this result transmit delma reference range : 0.0 - 10.0 /100 WBCs. The reference range was not used to interpret this result as normal/abnormal . NRBC x10^3 (test code See_Comment [Auto mated = 4683889840) message] The system which generated this result transmit delma reference range : 10*3/?L. The reference range was not used to interpret this result as normal/abnormal . GRAN MAT (NEUT) % 73.6 % (test code = 770-8) IMM GRAN % (test code 0.70 % = 0186781157) LYMPH % (test code = 19.2 % 736-9) MONO % (test code = 6.0 % 5905-5) EOS % (test code = 0.2 % 713-8) BASO % (test code = 0.3 % 706-2) GRAN MAT x10^3(ANC) 10.00 10*3/uL 1.99-6.95 H (test code = 5869178484) IMM GRAN x10^3 (test 0.09 10*3/uL 0-0.06 H code = 6957186341) LYMPH x10^3 (test code 2.61 10*3/uL 1.09-3.23 = 731-0) MONO x10^3 (test code 0.82 10*3/uL 0.36-1.02 = 742-7) EOS x10^3 (test code = 0.03 10*3/uL 0.06-0.53 L 711-2) BASO x10^3 (test code 0.04 10*3/uL 0.01-0.09 = 704-7) Lab Interpretation Abnormal (test code = 35626-3) [facility] L[facility] 3 [id number] 12:58:41 1. Mild multilevel degenerative disc disease.2. Moderate facet arthropathy at L4-5 and L5-S1 RL: 3901 AFC: 91647 End of report ORDERING PHYSICIAN: JENNI TAI TECHNIQUE: Lumbar spine 3 views HISTORY: Back [...] facet arthropathy at L4-5 and L5-S1RL: 3901AFC: 30055Rmg [facility]"
[2022-05-13] MEDS ORDERED: NA CHLORIDE 0.9% 500 ML ONE ×3 (07:36→08:46)
[2022-05-13] MEDS ORDERED: NA CHLORIDE 0.9% 1,000 ML ONE (07:43)
--- NOTE | 2022-05-13 08:07 | RAD REPORT ---
EXAM DESCRIPTION: RAD - Chest Single View - 05/13/2022 7:54 am CLINICAL HISTORY: DYSPNEAsepsis COMPARISON: None TECHNIQUE: AP portable chest image was obtained 05/13/2022 7:54 am . FINDINGS: Lungs are clear. Heart and vasculature are normal. No measurable pleural effusion and no p neumothorax. No acute bony abnormality seen. No acute aortic findings suspected. IMPRESSION: No acute cardiopulmonary process.
[2022-05-13 08:18] LABS: Protime INR 1.28
[2022-05-13 08:31] LABS: Absolute Lymphocytes (CBC) 2.4 K/uL (0.7-4.9); Lymphocytes % 13.4 % (15.3-44.8); MCV 100.1 fL (80-100)
[2022-05-13 08:50] LABS: ALT/SGPT 42 U/L (16-61); AST/SGOT 36 U/L (15-37); Albumin 2.6 g/dL (3.4-5.0); Alkaline Phosphatase 148 U/L (45-117); BUN Blood Urea Nitrogen 66 mg/dL (7-18); Bicarbonate 15 mmol/L (21-32); Bilirubin Direct 0.1 mg/dL (0-0.2); Bilirubin Total 0.3 mg/dL (0.2-1.0); Glomerular Filtration Rate 65 ml/min (=/>90); Glucose Level 165 mg/dL (74-106); Potassium 4.7 mmol/L (3.5-5.1); Protein, Total 5.4 g/dL (6.4-8.2); Sodium Level 141 mmol/L (136-145)
[2022-05-13 08:52] LABS: Troponin High Sensitivity 5.4 pg/mL (<58.9)
[2022-05-13 09:13] LABS: SARS-COV-2 RT PCR NEGATIVE (NEGATIVE)
[2022-05-13] MEDS ORDERED: VANCOMYCIN 1 GM/VIAL ONE (09:20)
[2022-05-13] MEDS ORDERED: NA CHLORIDE 0.9% 100 ML IV ONE (09:20)
[2022-05-13] MEDS ORDERED: NA CHLORIDE 0.9% 250 ML ONE ×2 (09:20→13:22)
[2022-05-13] MEDS ORDERED: CEFEPIME 1 GM/VIAL ONE (09:21)
[2022-05-13] MEDS ORDERED: LIDOCAINE VISCOUS 2% SOLN 15 ML UDC ONE (09:38)
[2022-05-13 10:28] LABS: Urine Blood 1+ (Negative); Urine Glucose Negative (Negative); Urine Protein Negative (Negative); Urine Specific Gravity 1.015 (1.005-1.030)
[2022-05-13 10:40] LABS: Urine Bacteria <20 /HPF (<20); Urine Mucus Slight /HPF (None Seen)
[2022-05-13 10:45] LABS: Barbiturates NEGATIVE (NEGATIVE); Benzodiazepines NEGATIVE (NEGATIVE); Cocaine NEGATIVE (NEGATIVE); METHAMPHETAM NEGATIVE (NEGATIVE); Methadone NEGATIVE (NEGATIVE); Opiates POSITIVE (NEGATIVE); Phencyclidine NEGATIVE (NEGATIVE); THC Cannibis NEGATIVE (NEGATIVE)
--- NOTE | 2022-05-13 12:08 | RAD REPORT ---
EXAM DESCRIPTION: CT - Head Brain Wo Cont - 05/13/2022 11:49 am CLINICAL HISTORY: syncope, head injury COMPARISON: Abdomen Pelvis W Contrast dated 05/13/2022; Chest For Pe Angio dated 05/13/2022 TECHNIQUE: All CT scans are performed using dose optimization technique as appropriate and may inclu de automated exposure control or mA/KV adjustment according to patient size. FINDINGS: No intracranial hemorrhage, hydrocephalus or extra-axial fluid collection.No areas of brai n edema or evidence of midline shift. Chronic mucoperiosteal thickening within the maxillary sinuses. The calvarium is intact. IMPRESSION: No acute intracranial abnormality.
--- NOTE | 2022-05-13 12:22 | RAD REPORT ---
EXAM DESCRIPTION: CT - Chest For Pe Angio - 05/13/2022 11:56 am CLINICAL HISTORY: dyspnea, hypotension COMPARISON: Chest Single View dated 05/13/2022; Abdomen Pelvis W Contrast dated 05/13/2022 TECHNIQUE: Dynamically enhanced axial 3 mm thick images of the chest were obtained during administra tion of <100> mL Isovue 370 IV contrast. Coronal and oblique reconstruction images were generated and reviewed. Exam utilizes a protocol for optimal evaluation of pulmonary arterial tree. Maximum intensity projections 3D imaging was utilized All CT scans are performed using dose optimization technique as appropriate and may include automated exposure control or mA/KV adjustment according to patient size. FINDINGS: Chest Wall: No suspicious thyroid nodules or pathologic lymphadenopathy. Lungs: Faint ground-glass opacities in lung bases likely representing atelectasis. Emphysema is noted . Pleura: No significant effusions or pneumothorax. Mediastinum/niranjan: No pathologic lymphadenopathy. Pulmonary arteries/Aorta: Limited evaluation of the subsegmental pulmonary arteries due to motion. No aortic aneurysm. Heart: No significant pericardial effusion. Normal heart size. Upper abdomen: Reference CT of the abdomen and pelvis. Bones: No acute abnormality. IMPRESSION: Negative for pulmonary embolism. Limited evaluation of the subsegmental pulmonary arteri es due to motion artifact. No definite acute process identified.
--- NOTE | 2022-05-13 12:39 | RAD REPORT ---
EXAM DESCRIPTION: CTAbdomen Pelvis W Contrast - 05/13/2022 11:57 am CLINICAL HISTORY: hypotensive, pale COMPARISON: Abdomen Pelvis W Contrast dated 03/22/2022; Cholangiogram dated 03/23/2022 TECHNIQUE: CT of the abdomen and pelvis was performed with IV contrast. All CT scans are performed using dose optimization technique as appropriate and may include automated exposure control or mA/KV adjustment according to patient size. FINDINGS: Lower chest: Reference CT chest from the same date. Liver: 7 mm hypoattenuating lesion in the hepatic dome is likely benign. Biliary: Interval cholecystectomy. Stomach: Gastric varices. Duodenum: No significant focal abnormality. Pancreas: Atrophic pancreas. Fluid at the tail of the pancreas. Hypoattenuating structure ventral to the pancreatic neck. Spleen: No significant abnormality. Adrenal: No suspicious lesions. Kidney/ureter: Mild left-sided hydronephrosis. Punctate bilateral renal calculi. Too small to charact erize and/or benign appearing renal lesions are noted. Retroperitoneum: Retroperitoneal stranding. Fluid or soft tissue present near the tail of the pancrea s. Vascular: No aneurysm. Atherosclerosis . Question portal vein occlusion. Bowel: No significant focal abnormality. Moderate colonic stool. Peritoneum: No ascites or free air. Bladder: Gas within the bladder likely from instrumentation. . Reproductive: No adnexal masses. Bones: No acute fracture. Other: n/a IMPRESSION: 1. Mild left sided hydronephrosis without obstructing stone or mass identified. Question focus of circumferential enhancement of the left proximal ureter at the UPJ. This could represent in flammation versus a urothelial lesion . Consider urologic referral for further workup. 2. Peripancreatic hypoattenuating fluid and/or soft tissue is likely sequelae of prior pancreatitis a nd unchanged. Suggest 3 month follow-up CT to reassess. 3. Gastric varices may be from a splenic vein occlusion . Endoscopy could better assess. 3.
--- NOTE | 2022-05-13 13:05 | EDPHYS ---
Physician Documentation [facility] Name: Jmi Porras Age: 52 yrs Sex: Male : 1970 Arrival Date: 05/13/2022 Time: 07:31 Bed 13 Private MD: ED Physician Cristian Pimentel HPI: 05/13 07:36 This 52 yrs old Male presents to ER via Unassigned with complaints of feeling weak and rn thirsty. 07:37 Pt reports doesn't feel well, not sure how long, + generalized weakness and fatigue, rn feels "very thirsty". Denies cough/runny nose/vomiting/diarrhea/blood in stool. Denies drug use other than pain meds and muscle relaxers. Denies focal chest pain or abd pain. No headache or neck pain. . Onset: The symptoms/episode began/occurred at an unknown time. Severity of symptoms: At their worst the symptoms were moderate. The patient has not experienced similar symptoms in the past. The patient has not recently seen a physician. Historical: - Allergies: 08:06 No Known Allergies; jl7 - Home Meds: 08:13 Unable to obtain [Active]; kc6 - PMHx: 08:13 None; kc6 - PSHx: 08:13 Cholecystectomy; kc6 - Immunization history:: Client reports having NOT received the Covid vaccine. Flu vaccine is not up to date. - Social history:: Smoking status: Patient reports the use of cigarette tobacco products, smokes one pack cigarettes per day. - Family history:: not pertinent. - Hospitalizations: : No recent hospitalization is reported. ROS: 07:37 Constitutional: Negative for fever, chills, and weight loss, Eyes: Negative for injury, rn pain, redness, and discharge, Neck: Negative for injury, pain, and swelling, Cardiovascular: Negative for chest pain, palpitations, and edema, Respiratory: Negative for shortness of breath, cough, wheezing, and pleuritic chest pain, Abdomen/GI: Negative for abdominal pain, nausea, vomiting, diarrhea, and constipation, Back: Negative for injury and pain, : Negative for injury, bleeding, discharge, and swelling, MS/Extremity: Negative for injury and deformity, Skin: Negative for injury, rash, and discoloration, Neuro: Negative for headache, numbness, tingling, and seizure. Exam: 07:37 Constitutional: Thin male, tachypneic, very dry MM Head/Face: Normocephalic, rn atraumatic. Eyes: Pupils equal round and reactive to light, extra-ocular motions intact. ENT: Very dry MM Cardiovascular: Tachycardic, regular. No pulse deficits. Respiratory: + mild tachypnea, no retractions Abdomen/GI: Soft, non-tender Skin: Warm, dry MS/ Extremity: Pulses equal, no cyanosis. Neurovascular intact. Full, normal range of motion. Equal circumference. Neuro: Awake and alert, GCS 15 08:16 ECG was reviewed by the Attending Physician. rn Vital Signs: 07:23 BP 81 / 50; Pulse 129; Resp 24 S; Pulse Ox 98% on R/A; kc6 07:30 BP 81 / 50; Pulse 128; Resp 23 S; Temp 97.7(O); Pulse Ox 100% on R/A; Weight 70.31 kg kc6 (R); Height 5 ft. 9 in. (175.26 cm) (R); Pain 0/10; 07:30 BP 76 / 49; Pulse 124; Resp 23 S; Pulse Ox 94% on R/A; kc6 07:39 BP 78 / 44; Pulse 126; Resp 23 S; Pulse Ox 99% on R/A; kc6 07:56 BP 81 / 51; Pulse 117; Resp 22 S; Pulse Ox 98% on R/A; kc6 08:00 BP 79 / 50; Pulse 117; Resp 20 S; Pulse Ox 98% on R/A; kc6 08:08 BP 93 / 43; Pulse 113; Resp 17 S; Pulse Ox 96% on R/A; kc6 08:15 BP 83 / 36; Pulse 111; Resp 19 S; Pulse Ox 100% on R/A; kc6 08:19 BP 89 / 72; Pulse 111; Resp 20 S; Pulse Ox 100% on R/A; kc6 08:30 BP 84 / 41; Pulse 108; Resp 16 S; Pulse Ox 98% on R/A; kc6 08:45 BP 90 / 47; Pulse 108; Resp 17; Pulse Ox 99% on R/A; kc6 09:00 BP 92 / 44; Pulse 107; Resp 18 S; Pulse Ox 98% on R/A; kc6 09:14 BP 87 / 42; Pulse 106; Resp 18 S; Pulse Ox 98% on R/A; kc6 09:22 BP 97 / 57; Pulse 110; rn 09:56 Temp 97.9(O); vg1 12:15 BP 113 / 56; Pulse 119; Resp 22 S; Pulse Ox 100% on R/A; Pain 0/10; kc6 12:55 BP 104 / 65; Pulse 123; Resp 27 S; Pulse Ox 100% on R/A; kc6 13:45 BP 99 / 61; Pulse 105; Resp 15 S; Pulse Ox 96% on R/A; kc6 14:45 BP 85 / 73; Pulse 105; Resp 15 S; Pulse Ox 100% on R/A; kc6 15:44 BP 86 / 59; Pulse 119; Resp 20 S; Pulse Ox 100% on R/A; Pain 0/10; kc6 18:00 BP 93 / 57; Pulse 116; Resp 20 S; Pulse Ox 100% on R/A; kc6 07:30 Body Mass Index 22.89 (70.31 kg, 175.26 cm) [facility] Procedures: 17:24 Central Line: the site was prepped with Betadine, in sterile fashion, a triple lumen rn catheter was inserted, in the right in 1 attempts. placement was verified, by blood return, the site was dressed with Tegaderm, using sterile technique, the patient tolerated the procedure, well. MDM: 07:34 Patient medically screened. rn 11:37 ED course: BP steady after 30ml/kg bolus. Pt without source at this time but otherwise rn meets > 2 SIRS criteria, elevated lactate with hypotension, responding to fluid bolus. Abx given after blood culture drawn. Sepsis reevaluation complete. Still pending imaging to further eval for source. CXR neg for pneumonia, UA neg for UTI. . 12:59 Differential Diagnosis GI bleed, sepsis, severe sepsis, pancreatitis, colitis, rn enteritis. Data reviewed: vital signs, nurses notes, lab test result(s), EKG, radiologic studies, CT scan, plain films, and as a result, I will admit patient. Counseling: I had a detailed discussion with the patient and/or guardian regarding: the historical points, exam findings, and any diagnostic results supporting the discharge/admit diagnosis, lab results, radiology results, the need for further work-up and treatment in the hospital, the need to transfer to another facility, [facility] does not immediately have the required specialist. Response to treatment: the patient's symptoms have markedly improved after treatment, and as a result, I will admit patient. ED course: Pt reevaluated, no clear source for infection other than nonspecific urological inflammation of proximal ureter. Spoke at length with patient and now states has been throwing up blood recently with intermittent black stools even though he denied this initially. Will start on protonix drip and octreotide drip given 2 point drop in hemoglobin and will have to transfer 2/2 no gi here. Sepsis still a possibility and all criteria met for SEP-1, and abx given, but will transfer for GI evaluation. No gross blood or melena on digital exam.. 17:24 Independent interpretation of the following test(s) in the Emergency Department EKG: rn See my EKG interpretation above X-Ray: My interpretation is CXR neg for acute infiltrate. ED course: Pt continued to decompensate despite adequate fluid resuscitation, I was concerned of downtrending BP and transfer, so placed a central line and started levophed. . 17:25 ED course: Pt had large grossly melena stool here in bedside commode, became more rn lightheaded and dizzy, dropped BP. . 05/13 07:36 Order name: Blood Culture Adult (2) rn 05/13 07:36 Order name: CBC with Diff; Complete Time: 09: rn 05/13 07:36 Order name: CMP; Complete Time: 10:23 05/13 07:36 Order name: Lactate w/ 2H reflex if indic.; Complete Time: 09: rn 05/13 07:36 Order name: Protime (+inr); Complete Time: 09: rn 05/13 07:36 Order name: Ptt, Activated; Complete Time: 09: rn 05/13 07:36 Order name: Urine Culture rn 05/13 07:36 Order name: Urine Microscopic Only; Complete Time: 11:37 rn 05/13 07:36 Order name: COVID-19/FLU A+B; Complete Time: 10:23 rn 05/13 07:36 Order name: Urine Drug Screen; Complete Time: 11:37 rn 05/13 07:36 Order name: Acetaminophen; Complete Time: 10:23 rn 05/13 07:36 Order name: Basic Metabolic Panel rn 05/13 07:36 Order name: ETOH Level; Complete Time: 09:06 rn 05/13 07:36 Order name: Hepatic Function; Complete Time: 10:23 rn 05/13 07:36 Order name: Chest Single View XRAY; Complete Time: 08:12 rn 05/13 07:36 Order name: Salicylate; Complete Time: 09:06 rn 05/13 07:37 Order name: Ketone, Serum; Complete Time: 10:23 rn 05/13 08:14 Order name: CT Chest For PE Angio; Complete Time: 12:50 rn 05/13 08:14 Order name: CT Abd/Pelvis - IV Contrast Only; Complete Time: 12:50 rn 05/13 08:18 Order name: LAB Add On eb 05/13 08:34 Order name: Troponin High Sensitivity; Complete Time: 10:23 EDMS 05/13 08:44 Order name: CT Head Brain wo Cont; Complete Time: 12:50 rn 05/13 10:28 Order name: Urine Dipstick-Ancillary; Complete Time: 11:37 EDMS 05/13 12:50 Order name: Lactate Sepsis 2 HR Follow-up; Complete Time: 12:58 EDMS 05/13 07:36 Order name: EKG; Complete Time: 07:37 rn 05/13 07:36 Order name: Accucheck; Complete Time: 08:38 rn 05/13 07:36 Order name: Cardiac monitoring; Complete Time: 07:51 rn 05/13 07:36 Order name: EKG - Nurse/Tech; Complete Time: 07:51 rn 05/13 07:36 Order name: IV Saline Lock - Large Bore; Complete Time: 08:04 rn 05/13 07:36 Order name: Labs collected and sent; Complete Time: 08:04 rn 05/13 07:36 Order name: O2 Per Protocol; Complete Time: 07:51 rn 05/13 07:36 Order name: O2 Sat Monitoring; Complete Time: 07:51 rn 05/13 07:36 Order name: Urine Dipstick-Ancillary (obtain specimen); Complete Time: 10:29 rn 05/13 07:36 Order name: Vital Signs; Complete Time: 08:04 rn 05/13 07:36 Order name: IV Saline Lock; Complete Time: 08:04 rn 05/13 08:11 Order name: Labs - recollect needed: recollect cbc and covid swab not labeled; Complete eb Time: 08:25 EC:16 Rate is 123 beats/min. Rhythm is regular. QRS Divide is Normal. PA interval is normal. rn QRS interval is normal. QT interval is normal. No Q waves. T waves are Normal. No ST changes noted. Clinical impression: Sinus tachycardia. Interpreted by me. Reviewed by me. Administered Medications: 08:13 Drug: NS 0.9% (30 ml/kg) 30 ml/kg Route: IV; Rate: bolus; Site: left antecubital; kc6 10:32 Follow up: IV Status: Completed infusion; IV Intake: 2000ml vg1 08:46 Drug: NS 0.9% 500 ml Route: IV; Rate: bolus; Site: left antecubital; kc6 10:32 Follow up: IV Status: Completed infusion; IV Intake: 500ml vg1 09:26 Drug: Cefepime 1 grams Route: IVPB; Rate: 200 ml/hr; Infused Over: 30 mins; Site: right kc antecubital; 10:00 Follow up: IV Status: Completed infusion vg1 11:19 Drug: vancoMYCIN 1 grams Route: IVPB; Infused Over: 2 hrs; Site: right upper arm; vg1 12:19 Follow up: Response: No adverse reaction; IV Status: Completed infusion; IV Intake: kc6 250ml 13:38 Drug: ProTONIX (pantoprazole) 40 mg Route: IVP; Site: left antecubital; kc6 15:46 Follow up: Response: No adverse reaction [facility] 13:38 Drug: ProTONIX (pantoprazole) 8 mg/hr Route: IV; Rate: 25 ml/hr; Site: left antecubital;6 18:00 Follow up: Response: No adverse reaction; IV Status: Infusion continued upon transfer [facility] 13:38 Drug: Octreotide 50 mcg Route: Sub-Q; Site: abdomen; kc6 15:46 Follow up: Response: No adverse reaction [facility] 13:58 Drug: Octreotide Infusion (50 mcg/hr) - (Octreotide 500 mcg, NS 0.9% 500 ml) Route: IV; kc6 Rate: 50 ml/hr; Site: right antecubital; 18:00 Follow up: Response: No adverse reaction; IV Status: Infusion continued upon transfer [facility] 17:29 Drug: Levophed (norepinephrine) 0.1 mcg/kg/min {Note: received verbal order from Dr. stacy Pimentel to begin at 10 mcg/min.} Route: IV; Rate: calculated rate; Site: right femoral; 18:00 Follow up: Response: No adverse reaction; IV Status: Infusion continued upon transfer kc6 Disposition Summary: 05/13/22 13:04 Transfer Ordered Transfer Location: [facility] rn Reason: Higher level of care rn Condition: Fair rn Problem: new rn Symptoms: have improved rn Accepting Physician: (05/13/22 18:12) stacy Diagnosis - GI Bleed/ Gastrointestinal hemorrhage, unspecified rn - Hematemesis rn - Hypotension, unspecified rn - Syncope rn - Severe sepsis with septic shock rn Forms: - Medication Reconciliation Form rn - SBAR form ornament setter time excluding procedures: 12:59 Critical care time: Bedside Care: 40 minutes. Total time: 40 minutes rn Signatures: Dispatcher [employer] Cristian Caldera MD MD rn Leal, Jahala, RN RN jl7 Kacey Restrepo Victoria, RN RN vg1 Jenni Mcdonald, RN RN kc6 Corrections: (The following items were deleted from the chart) 13:05 13:04 Dr. live rn 18:12 13:05 Dr. live kc6
--- NOTE | 2022-05-13 13:05 | ER ---
Nurse's Notes [facility] Name: Jim Porras Age: 52 yrs Sex: Male : 1970 Arrival Date: 05/13/2022 Time: 07:31 Bed 13 Private MD: Diagnosis: GI Bleed/ Gastrointestinal hemorrhage, unspecified;Hematemesis;Hypotension, unspecified;Syncope;Severe sepsis with septic shock Presentation: 05/13 07:30 Chief complaint: EMS states: client fell this morning while ambulating to the bathroom. kc6 client stated he hit his head and lost conscious. denies being on blood thinners. 07:30 Coronavirus screen: Vaccine status: Patient reports being unvaccinated. At this time, kc6 the client does not indicate any symptoms associated with coronavirus-19. Ebola Screen: No symptoms or risks identified at this time. Initial Sepsis Screen: Does the patient meet any 2 criteria? HR > 90 bpm. Does the patient have a suspected source of infection? No. Patient's initial sepsis screen is negative. Risk Assessment: Do you want to hurt yourself or someone else? Patient reports no desire to harm self or others. Onset of symptoms was May 13, 2022. 07:30 Method Of Arrival: EMS: [facility] 6 07:30 Acuity: TISHA 2 kc6 Triage Assessment: 07:30 General: Appears in no apparent distress. uncomfortable, ill, Behavior is cooperative, kc6 appropriate for age, drowsy. Pain: Denies pain. EENT: No signs and/or symptoms were reported regarding the EENT system. Neuro: Luther Agitation-Sedation Scale (RASS): -1 Drowsy Level of Consciousness is awake, alert, obeys commands, Oriented to person, place, time, situation, Appropriate for age. Cardiovascular: Heart tones S1 S2 present Capillary refill < 3 seconds. Respiratory: Airway is patent Trachea midline Respiratory effort is even, labored, Respiratory pattern is regular, symmetrical, Breath sounds are clear bilaterally. GI: No signs and/or symptoms were reported involving the gastrointestinal system. : No signs and/or symptoms were reported regarding the genitourinary system. Derm: No signs and/or symptoms reported regarding the dermatologic system. Skin is intact, Skin is diaphoretic, Skin is pale, Skin temperature is warm. Musculoskeletal: No signs and/or symptoms reported regarding the musculoskeletal system. Circulation, motion, and sensation intact. Capillary refill < 3 seconds, Range of motion: intact in all extremities. Historical: - Allergies: 08:06 No Known Allergies; jl7 - Home Meds: 08:13 Unable to obtain [Active]; kc6 - PMHx: 08:13 None; kc6 - PSHx: 08:13 Cholecystectomy; kc6 - Immunization history:: Client reports having NOT received the Covid vaccine. Flu vaccine is not up to date. - Social history:: Smoking status: Patient reports the use of cigarette tobacco products, smokes one pack cigarettes per day. - Family history:: not pertinent. - Hospitalizations: : No recent hospitalization is reported. Screenin:04 [facility] ED Fall Risk Assessment (Adult) History of falling in the last 3 months, jl7 including since admission Yes- single mechanical fall (1 pt) Confusion or Disorientation No (0 pts) Intoxicated or Sedated No (0 pts) Impaired Gait Yes (1 pt) Mobility Assist Device Used No (0 pt) Altered Elimination No (0 pt) Score/Fall Risk Level 0 - 2 = Low Risk Oriented to surroundings, Maintained a safe environment, Educated pt \\T\\ family on fall prevention, incl call for assistance when getting out of bed, Assessed \\T\\ reinforced patient's understanding of fall precautions, Provided non-skid footwear, Hourly rounding (assess needs \\T\\ fall precautionary measures) done. Abuse screen: Denies threats or abuse. Denies injuries from another. Nutritional screening: No deficits noted. Tuberculosis screening: No symptoms or risk factors identified. Assessment: 07:30 Reassessment: please see triage assessment. [facility] 08:30 Reassessment: Patient appears in no apparent distress at this time. No changes from [facility] previously documented assessment. Patient and/or family updated on plan of care and expected duration. Pain level reassessed. Patient is alert, oriented x 3, equal unlabored respirations, skin warm/dry/pink. Patient denies pain at this time. 09:30 Reassessment: antibiotics started prior to second set of blood cultures being obtained. 6 Dr. Pimentel notified. 09:30 Reassessment: Patient appears in no apparent distress at this time. No changes from [facility] previously documented assessment. Patient and/or family updated on plan of care and expected duration. Pain level reassessed. Patient is alert, oriented x 3, equal unlabored respirations, skin warm/dry/pink. Patient denies pain at this time. 09:57 Reassessment: lab at bedside obtaining second set of blood cultures. [facility] 10:21 Reassessment: Pt stated has been having trouble urinating since had gallbladder vg1 removed; stated "it feels like my bladder isnt all the way empty and I have to sit down to finish peeing" Also stated is scheduled to have bladder scoped in May. 10:30 Reassessment: Patient appears in no apparent distress at this time. No changes from kc6 previously documented assessment. Patient and/or family updated on plan of care and expected duration. Pain level reassessed. Patient is alert, oriented x 3, equal unlabored respirations, skin warm/dry/pink. Patient denies pain at this time. 11:30 Reassessment: Patient appears in no apparent distress at this time. No changes from kc6 previously documented assessment. Patient and/or family updated on plan of care and expected duration. Pain level reassessed. Patient is alert, oriented x 3, equal unlabored respirations, skin warm/dry/pink. Patient denies pain at this time. 12:30 Reassessment: Patient appears in no apparent distress at this time. No changes from kc6 previously documented assessment. Patient and/or family updated on plan of care and expected duration. Pain level reassessed. Patient is alert, oriented x 3, equal unlabored respirations, skin warm/dry/pink. Patient denies pain at this time. 13:30 Reassessment: Patient appears in no apparent distress at this time. No changes from kc6 previously documented assessment. Patient and/or family updated on plan of care and expected duration. Pain level reassessed. Patient is alert, oriented x 3, equal unlabored respirations, skin warm/dry/pink. 14:30 Reassessment: Patient appears in no apparent distress at this time. No changes from kc6 previously documented assessment. Patient and/or family updated on plan of care and expected duration. Pain level reassessed. Patient is alert, oriented x 3, equal unlabored respirations, skin warm/dry/pink. Patient denies pain at this time. 15:45 Reassessment: Patient appears in no apparent distress at this time. No changes from kc6 previously documented assessment. Patient and/or family updated on plan of care and expected duration. Pain level reassessed. Patient is alert, oriented x 3, equal unlabored respirations, skin warm/dry/pink. Patient denies pain at this time. 16:45 Reassessment: Patient appears in no apparent distress at this time. No changes from kc6 previously documented assessment. Patient and/or family updated on plan of care and expected duration. Pain level reassessed. Patient is alert, oriented x 3, equal unlabored respirations, skin warm/dry/pink. 17:00 Reassessment: assisted client into bed from bedside commode. large black stool present. kc6 Dr. Pimentel notified. General: Appears distressed, uncomfortable, ill. Derm: Skin is intact, Skin is diaphoretic, Skin is pale, Skin temperature is warm. 18:00 Reassessment: Patient appears in no apparent distress at this time. No changes from 6 previously documented assessment. skin is pale and warm. respirations even and unlabored. alert and oriented x4. Vital Signs: 07:23 BP 81 / 50; Pulse 129; Resp 24 S; Pulse Ox 98% on R/A; kc6 07:30 BP 81 / 50; Pulse 128; Resp 23 S; Temp 97.7(O); Pulse Ox 100% on R/A; Weight 70.31 kg kc6 (R); Height 5 ft. 9 in. (175.26 cm) (R); Pain 0/10; 07:30 BP 76 / 49; Pulse 124; Resp 23 S; Pulse Ox 94% on R/A; kc6 07:39 BP 78 / 44; Pulse 126; Resp 23 S; Pulse Ox 99% on R/A; kc6 07:56 BP 81 / 51; Pulse 117; Resp 22 S; Pulse Ox 98% on R/A; kc6 08:00 BP 79 / 50; Pulse 117; Resp 20 S; Pulse Ox 98% on R/A; kc6 08:08 BP 93 / 43; Pulse 113; Resp 17 S; Pulse Ox 96% on R/A; kc6 08:15 BP 83 / 36; Pulse 111; Resp 19 S; Pulse Ox 100% on R/A; kc6 08:19 BP 89 / 72; Pulse 111; Resp 20 S; Pulse Ox 100% on R/A; kc6 08:30 BP 84 / 41; Pulse 108; Resp 16 S; Pulse Ox 98% on R/A; kc6 08:45 BP 90 / 47; Pulse 108; Resp 17; Pulse Ox 99% on R/A; kc6 09:00 BP 92 / 44; Pulse 107; Resp 18 S; Pulse Ox 98% on R/A; kc6 09:14 BP 87 / 42; Pulse 106; Resp 18 S; Pulse Ox 98% on R/A; kc6 09:22 BP 97 / 57; Pulse 110; rn 09:56 Temp 97.9(O); vg1 12:15 BP 113 / 56; Pulse 119; Resp 22 S; Pulse Ox 100% on R/A; Pain 0/10; kc6 12:55 BP 104 / 65; Pulse 123; Resp 27 S; Pulse Ox 100% on R/A; kc6 13:45 BP 99 / 61; Pulse 105; Resp 15 S; Pulse Ox 96% on R/A; kc6 14:45 BP 85 / 73; Pulse 105; Resp 15 S; Pulse Ox 100% on R/A; kc6 15:44 BP 86 / 59; Pulse 119; Resp 20 S; Pulse Ox 100% on R/A; Pain 0/10; kc6 18:00 BP 93 / 57; Pulse 116; Resp 20 S; Pulse Ox 100% on R/A; kc6 07:30 Body Mass Index 22.89 (70.31 kg, 175.26 cm) kc6 ED Course: 07:30 Maintain EMS IV. Dressing intact. Good blood return noted. Site clean \\T\\ dry. Gauge \\T\\ joanne 6 site: 20G LAC. 07:30 Patient has correct armband on for positive identification. Bed in low position. Call jl7 light in reach. Side rails up X2. Client placed on continuous cardiac and pulse oximetry monitoring. NIBP monitoring applied. 07:31 Patient arrived in ED. mm9 07:34 Cristian Pimentel MD is Attending Physician. rn 07:46 Jenni Mcdonald, SPENCER is Primary Nurse. kc6 07:55 Chest Single View XRAY In Process Unspecified. EDMS 08:00 Inserted saline lock: 22 gauge in right upper arm, using aseptic technique. Blood jl7 collected. 08:00 Initial lab(s) drawn, by me, sent to lab. First set of blood cultures drawn by me. jl7 08:11 Triage completed. kc6 08:14 Arm band placed on. kc6 10:18 Gaxiola cath inserted, using sterile technique, 16 Fr., by ok, balloon inflated, to jl7 gravity drainage, urine specimen collected. 11:51 CT Head Brain wo Cont In Process Unspecified. EDMS 11:58 CT Chest For PE Angio In Process Unspecified. EDMS 11:58 CT Abd/Pelvis - IV Contrast Only In Process Unspecified. EDMS 13:08 initiated a transfer with Gabrielle Calloway Rn from the [facility]. eb 14:[address] Mehta the hospitalist general education instructor for [facility] with Dr. Pimentel for patient transfer consultation. 15:[address] Tristan the cloud solutions architect fro [facility] with. eb 15:05 administrative approval by Gabrielle Calloway Rn/ patient has been accepted to [facility] 7 south 2 bed 10/ Dr. Aditya Tristan has accepted the patient in transfer/ report to be called to [phone]. 17:24 Assisted provider with central line placement. Set up central line tray. Triple lumen vg1 line placed in right femoral. Line placed by Cristian Pimentel MD Placement verified by blood return, Dressed with Tegaderm, Patient tolerated well. 18:03 Patient transferred, IV remains in place. kc6 Administered Medications: 08:13 Drug: NS 0.9% (30 ml/kg) 30 ml/kg Route: IV; Rate: bolus; Site: left antecubital; 6 10:32 Follow up: IV Status: Completed infusion; IV Intake: 2000ml vg1 08:46 Drug: NS 0.9% 500 ml Route: IV; Rate: bolus; Site: left antecubital; kc6 10:32 Follow up: IV Status: Completed infusion; IV Intake: 500ml vg1 09:26 Drug: Cefepime 1 grams Route: IVPB; Rate: 200 ml/hr; Infused Over: 30 mins; Site: right kc6 antecubital; 10:00 Follow up: IV Status: Completed infusion vg1 11:19 Drug: vancoMYCIN 1 grams Route: IVPB; Infused Over: 2 hrs; Site: right upper arm; vg1 12:19 Follow up: Response: No adverse reaction; IV Status: Completed infusion; IV Intake: kc6 250ml 13:38 Drug: ProTONIX (pantoprazole) 40 mg Route: IVP; Site: left antecubital; 6 15:46 Follow up: Response: No adverse reaction kc6 13:38 Drug: ProTONIX (pantoprazole) 8 mg/hr Route: IV; Rate: 25 ml/hr; Site: left antecubital;kc6 18:00 Follow up: Response: No adverse reaction; IV Status: Infusion continued upon transfer kc6 13:38 Drug: Octreotide 50 mcg Route: Sub-Q; Site: abdomen; kc6 15:46 Follow up: Response: No adverse reaction 6 13:58 Drug: Octreotide Infusion (50 mcg/hr) - (Octreotide 500 mcg, NS 0.9% 500 ml) Route: IV; [facility] Rate: 50 ml/hr; Site: right antecubital; 18:00 Follow up: Response: No adverse reaction; IV Status: Infusion continued upon transfer 6 17:29 Drug: Levophed (norepinephrine) 0.1 mcg/kg/min {Note: received verbal order from Dr. stacy Pimentel to begin at 10 mcg/min.} Route: IV; Rate: calculated rate; Site: right femoral; 18:00 Follow up: Response: No adverse reaction; IV Status: Infusion continued upon transfer [facility] Medication: 08:04 VIS not applicable for this client. jl7 Intake: 10:32 IV: 500ml; Total: 500ml. vg1 10:32 IV: 2000ml; Total: 2500ml. vg1 11:19 IV: 2500ml (IV Fluid); Total: 5000ml. vg1 12:19 IV: 250ml; Total: 5250ml. kc6 Output: 11:19 Urine: 900ml (Gaxiola); Total: 900ml. vg1 16:55 Urine: 750ml (Gaxiola); Total: 1650ml. vg1 Outcome: 13:04 ER care complete, transfer ordered by . rn 18:03 Transferred by ground EMS to [facility]. [facility] 18:03 Condition: stable 18:03 Instructed on the need for transfer. 18:12 Patient left the ED. kc6 Signatures: Dispatcher [employer] EDMS Cristian Pimentel MD MD rn Leal, Jahala, RN RN jl7 Kacey Restrepo Victoria, RN RN vg1 Jenni Mcdonald, RN RN kc6 Marifer Mckee mm9 Corrections: (The following items were deleted from the chart) 09:57 09:55 Reassessment: kc6 kc6 15:46 15:44 Pulse 119bpm; Resp 20bpm; Spontaneous; Pulse Ox 100% RA; Pain 0/10; kc6 kc6 16:27 15:[address] Tristan the cloud solutions architect fro [facility] with eb eb 17:47 16:59 Reassessment: kc6 kc6 17:48 17:29 Levophed (norepinephrine) 0.1 mcg/kg/min IV at calculated rate in right femoral kc6 kc6 18:58 17:45 Reassessment: assisted client into bed from bedside commode. large black stool kc6 present. Dr. Pimentel notified kc6 18:58 17:45 General: Appears distressed, uncomfortable, ill, kc6 kc6 18:58 17:45 Derm: Skin is intact, Skin is diaphoretic, Skin is pale, Skin temperature is warm kc6 kc6
[2022-05-13] MEDS ORDERED: PANTOPRAZOLE 40 MG INJ ONE (13:21)
[2022-05-13] MEDS ORDERED: OCTREOTIDE ACETATE 100 MCG/ML ONE (13:22)
[2022-05-13] MEDS ORDERED: OCTREOTIDE 500 MCG in NA CHLORIDE 0.9% 500 ML IV SCH (14:00)
[2022-05-13] MEDS ORDERED: NOREPINEPHRINE BITARTRATE/D5W 4 MG/250 ML BAG IV ONE (17:23)
[2022-05-13 19:43] VITALS: TEMP 97.9
[2022-05-13 19:47] VITALS: O2SAT 100
[2022-05-13 19:48] VITALS: BP 86/59
--- NOTE | 2022-05-15 16:58 | EKG ---
Test Date: 2022-05-13 Test Time: 07:44:05 [employer] Operator: BOLIVAR MEASUREMENT RESULTS: Intervals: Rate: 123 DE: 120 QRSD: 68 QT: 330 QTc: 472 [place]: P: 68 DE: 120 QRS: 50 T: 64 INTERPRETIVE STATEMENTS: Sinus tachycardia Possible Left atrial enlargement Borderline ECG Compared to ECG 03/22/2012 19:00:44 No significant changes Electronically Signed On 05-15-22 16:55:14 NURSE'S AIDES TEACHER by Froy Ramos
== END 2022-05-13 18:12 | disposition short-term general hospital (02) ==
LOC: ER 07:30
DX: K92.0 Hematemesis (principal); R65.21 Severe sepsis with septic shock; I95.9 Hypotension, unspecified; F17.210 Nicotine dependence, cigarettes, uncomplicated; Z20.822 Contact with and (suspected) exposure to COVID-19
CPT/HCPCS: 93005; 87040 ×2; 87088; 85025; 87086; 36415; 82010; 85610; 83605 ×2; 85730; 82248; 84484; 80053; 0240U; 80307; 70450; 71275; 74177; 71045; 51702; 96372; 99285; Q9967; J2354 ×2; C9113; J3370; J7050 ×2; J7040 ×4; J7030; J0692; G0480 ×3; 81003; 81015

== ENCOUNTER 2025-01-20 17:45 | Emergency (ER) | payer BC, SELFPAY ==
--- OUTSIDE RECORDS SUMMARY | 2025-01-20 17:53 | XMS REPORT | Continuity of Care Document ---
Author Name Unknown Address [address] [facility] [place] [address] Organization [facility] [place] Address [address] [facility] [place] [address] Care Team Providers Care Test Operator Name Role Phone LEXX THOMPSON Primary Care Physician Shaina Hatch MD Attending Clinician [phone] Robert Anna DO Attending Clinician [phone] Luz Ramos MD Attending Clinician [phone] EMILY BERNAL Attending Clinician Unavailable EMILY BERNAL Attending Clinician Unavailable Marifer Goldman RN Attending Clinician [phone] TAMMY DIAZ Attending Clinician Unavailable Barbara Casper DO Attending Clinician [phone] Tammy Diaz MD Attending Clinician [phone] Adrienne Paredes MD Attending Clinician + DANIEL RAMIREZ Attending Clinician Unavail able Emily Bernal MD Attending Clinician [phone] Cornelius Swan Attending Clinician [phone] SHAINA TAI Attending Clinician Unavailable Shaina Tai MD Attending Clinician [phone] DAGOBERTO GARLAND Attending Clinician U MARIANELA Blood Attending Clinician Unavailable DAR FIGUEROA Attending Clinician Unavailable Dar Art Attending Clinician [phone] Doctor Unassigned, [place] Attending Clinician U navailable GAXIOLA, LUÍS S Attending Clinician Unavailable Gaxiola PAC, Luís S Attending Clinician [phone] Luz Ramos MD Admitting Clinician [phone] EMILY BERNAL Admitting Clinician Unavailable TAMMY DIAZ Admitting Clinician Unavailable Tammy Diaz MD Admitting Clinician [phone] MECHE ROTH Admitting Clinician Unavailable CARL SILVEIRA Admitting Clinician UnavailDAR Sharp Admitting Clinician Unavailable SHAINA TAI Admitting Clinician Unavailable Payers Payer Name Policy Type Policy Number Effective Date Expirati on Date Source [facility] P[facility]/POS [id number] 2013 00:00:00 [employer] [employer] [id number] 00:00:00 [facility] [id number] 2019 00:00:00 Problems Condition Name Condition Details Condition Category Status Onset Date Resolution Date Last Treatment Date Treating Clinician Comments Source Acute on chronic pancreatit is Acute on chronic pancreatit is Disease Active 16 00:00: 00 [facility] Acute abdominal pain Acute abdominal pain Disease Active - 00:00: 00 [facility] Aspiration pneumoniti s Aspiration pneumoniti s Disease Active - 00:00: 00 [facility] GIB (gastroint estinal bleeding) GIB (gastroint estinal bleeding) Disease Active 05-13 00:00: 00 [facility] Sepsis Sepsis Disease Active 05-13 00:00: 00 [facility] No known active problems No known active problems Disease [facility] Allergies, Adverse Reactions, Alerts Allergy Name Allergy Type Status Severity Reaction(s) Onset Date Inactive Date Treating Clinician Comments Source NO KNOWN ALLERGIE S Drug Class Active [facility] NO KNOWN ALLERGIE S Allergy Active [facility] Social History Social Habit Start Date Stop Date Quantity Comments Source History of tobacco use Passive smoker [facility] Sexual orientation C HI [facility] History of Social function 2025-01-06 00:00:00 2025-01-06 00:00:00 [facility] Sex 2024-12-03 00:04:26 2024-12-03 00:04:26 Male (finding) [facility] Alcoholic beverage intake 2022-05-15 00:00:00 2022-05-15 00:00:00 Ex-drinker (finding) [facility] Tobacco use and exposure 2022-05-14 00:00:00 2022-05-14 00:00:00 Smokeless tobacco non-user [facility] Exposure to SARS-CoV-2 (event) 2022-03-04 00:00:00 2022-03-14 09:57:00 Not sure [facility] Sex assigned at 1970 00:00:00 1970 00:00:00 [facility] Smoking Status Start Date Stop Date Source Smokes tobacco daily 2024-05-19 00:00:00 [facility] Tobacco smoking consumption unknown [facility] Medications Ordered Medication Name Filled Medication Name Start Date Stop Date Current Medication? Ordering Clinician Indication Dosage Frequency Signature (SIG) Comments Components Source foLIC acid 1 mg tablet 01-10 00:00: 00 Yes [id number] 1mg Take 1 tablet by mouth in the morning. [facility] thiamine mononitrate 100 mg tablet 01-10 00:00: 00 Yes [id number] 100mg Take 1 tablet by mouth in the morning. [facility] oxazepam (SERAX) capsule 15 mg 01-09 17:00: 00 01-09 17:15 :03 No 15mg 15 mg, Oral, Q6H, 4 doses, First dose on Sun01/09/25 at 1200, Last dose on Sun01/10/25 at 0600, Routine [facility] potassium phosphate 15 mmol in NaCl 0.9% (NS) 250 mL piggyback potassium phosphate 15 mmol in NaCl 0.9% (NS) 250 mL piggyback 01-09 15:00: 00 01-09 17:05 :00 Yes 15mmol 15 mmol, IV Piggyback, ONCE, 1 dose, On Sun01/09/25 at 1000, 250 mL [facility] foLIC acid (FOLATE) tablet 1 mg foLIC acid (FOLATE) tablet 1 mg 01-09 14:00: 00 Yes 1mg 1 mg, Oral, DAILY, First dose on Sun01/09/25 at 0900, Until Discontinu ed, Routine [facility] thiamine mononitrate (VITAMIN B-1 (MONONITRAT E)) tablet 100 mg thiamine mononitrate (VITAMIN B-1 (MONONITRAT E)) tablet 100 mg 01-09 14:00: 00 Yes 100mg 100 mg, Oral, DAILY, First dose on Sun01/09/25 at 0900, Until Discontinu ed, Routine [facility] atorvastati n (LIPITOR) 40 mg tablet 01-09 12:15: 03 Yes 40mg Take 1 tablet by mouth at bedtime. Unsure of dose [facility] oxazepam (SERAX) capsule 15 mg oxazepam (SERAX) capsule 15 mg 01-09 01:39: 45 01-09 17:15 :03 Yes 15mg 15 mg, Oral, Q4HPRN, Starting on Sun01/08/25 at 2039, Until Sun01/09/25 at 1215, Routine, Only while awake for DBP equal to or greater than 100, HR equal to or greater than 100. [facility] loperamide 2 mg capsule 01-09 00:00: 00 Yes [id number] 2mg Take 1 capsule by mouth every 6 hours as needed for Diarrhea. [facility] HYDROcodone -acetaminop hen 5-325 mg tablet 01-09 00:00: 00 Yes [id number] 1{tbl} Take 1 tablet by mouth every 6 hours as needed for Pain (scale 4-6). [facility] lipase-prot ease-amylas e 12,000-38,0 00 -60,000 unit capsule 01-09 00:00: 00 02-09 04:59 :00 Yes [id number] Take 1 capsule by mouth in the morning and 1 capsule at noon and 1 capsule in the evening. Take with meals. [facility] chlordiazeP OXIDE 25 mg capsule 01-09 00:00: 00 01-14 04:59 :00 Yes [id number] Take 2 capsules by mouth every 6 hours for 1 day, THEN 2 capsules every 8 hours for 1 day, THEN 2 capsules every 12 hours for 1 day, THEN 2 capsules at bedtime for 1 day. [facility] oxazepam (SERAX) capsule 15 mg oxazepam (SERAX) capsule 15 mg 01-08 22:00: 00 01-09 11:21 :00 Yes 15mg 15 mg, Oral, Q6H ABX, 3 doses, First dose on Sun01/08/25 at 1700, Last dose on Sun01/09/25 at 0500, Routine [facility] potassium phosphate 15 mmol in NaCl 0.9% (NS) 250 mL piggyback potassium phosphate 15 mmol in NaCl 0.9% (NS) 250 mL piggyback 01-08 17:15: 00 01-08 20:16 :00 Yes 15mmol 15 mmol, IV Piggyback, ONCE, 1 dose, On Sun01/08/25 at 1215, 250 mL [facility] magnesium sulfate in D5W 1 gram/100 mL RTU IV Piggyback 1 g magnesium sulfate in D5W 1 gram/100 mL RTU IV Piggyback 1 g 01-08 15:15: 00 01-08 15:51 :00 Yes 1g 1 g, IV Piggyback, ONCE, 1 dose, On Sun01/08/25 at 1015, Administer over 60 Minutes, 100 mL [facility] magnesium oxide (MAG-OX 400) 400 mg (241.3 mg magnesium) tablet 400 mg magnesium oxide (MAG-OX 400) 400 mg (241.3 mg magnesium) tablet 400 mg 01-08 14:30: 00 01-08 14:51 :00 Yes 400mg 400 mg, Oral, ONCE, 1 dose, On Sun01/08/25 at 0930, Routine [facility] loperamide (IMODIUM A-D) capsule 2 mg loperamide (IMODIUM A-D) capsule 2 mg 01-08 14:27: 40 Yes 2mg 2 mg, Oral, Q6HPRN, Starting on Sun01/08/25 at 0927, Until Discontinu ed, Routine, Diarrhea [facility] KCL (KLOR-CON M20) tablet 40 mEq KCL (KLOR-CON M20) tablet 40 mEq 01-08 04:00: 00 01-08 04:41 :00 Yes 40meq 40 mEq, Oral, ONCE, 1 dose, On Sun01/07/25 at 2300, Routine [facility] lipase-prot ease-amylas e (CREON) 12,000-38,0 00 -60,000 unit capsule 12,000 unit lipase-prot ease-amylas e (CREON) 12,000-38,0 00 -60,000 unit capsule 12,000 unit 01-07 18:00: 00 Yes 1{capsu le} 12,000 unit (1 capsule), Oral, TID MEALS, First dose on Sun01/07/25 at 1300, Until Discontinu ed, Routine [facility] KCL (KLOR-CON M20) tablet 40 mEq KCL (KLOR-CON M20) tablet 40 mEq 01-07 17:00: 00 01-07 16:15 :00 Yes 40meq 40 mEq, Oral, ONCE, 1 dose, On Sun01/07/25 at 1200, Routine [facility] potassium chloride in water 10 mEq/100 mL RTU 10 mEq potassium chloride in water 10 mEq/100 mL RTU 10 mEq 01-07 17:00: 00 01-07 18:20 :00 Yes 10meq 10 mEq, IV Piggyback, Q1H, 2 doses, First dose on Sun01/07/25 at 1200, Last dose on Sun01/07/25 at 1300, Administer over 60 Minutes, 100 mL [facility] atorvastati n (LIPITOR) tablet 40 mg atorvastati n (LIPITOR) tablet 40 mg 01-07 02:00: 00 01-09 17:15 :03 Yes 40mg 40 mg, Oral, QHS, First dose on Sun01/06/25 at 2100, Until Discontinu ed, Routine [facility] enoxaparin (LOVENOX) injection 40 mg enoxaparin (LOVENOX) injection 40 mg 01-06 22:00: 00 01-07 14:52 :18 Yes 40mg 40 mg, Subcutaneo us, DAILY AT 1700, First dose on Sun01/06/25 at 1700, Until Discontinu ed, Routine [facility] proMETHazin e (PHENERGAN) 12.5 mg in NS 50 mL IV piggyback (CNR) proMETHazin e (PHENERGAN) 12.5 mg in NS 50 mL IV piggyback (CNR) 01-06 19:01: 34 01-09 17:15 :03 Yes 12.5mg 12.5 mg, IV Piggyback, at 200 mL/hr Administer over 15 Minutes, Q4HPRN, Starting on Sun01/06/25 at 1401, Until Sun01/09/25 at 1215, Routine, N/V unresponsi ve to Ondansetro n [facility] tamsulosin (FLOMAX) capsule 0.4 mg tamsulosin (FLOMAX) capsule 0.4 mg 01-06 16:45: 00 01-09 17:15 :03 Yes .4mg 0.4 mg, Oral, DAILY, First dose (after last modificati on) on Sun01/06/25 at 1145, Until Discontinu ed, Routine [facility] lidocaine (XYLOCAINE) 2 % jelly URO-JET 5 mL lidocaine (XYLOCAINE) 2 % jelly URO-JET 5 mL 01-06 15:45: 00 01-06 15:15 :00 Yes 5mL 5 mL, Urethral, ONCE, 1 dose, On Sun01/06/25 at 1045, Routine [facility] pantoprazol e (PROTONIX) EC tablet 40 mg pantoprazol e (PROTONIX) EC tablet 40 mg 01-06 14:00: 00 01-09 17:15 :03 Yes 40mg 40 mg, Oral, DAILY, First dose on Sun01/06/25 at 0900, Until Discontinu ed, Routine [facility] nicotine (NICODERM) 21 mg/24 hr patch 1 patch nicotine (NICODERM) 21 mg/24 hr patch 1 patch 01-06 13:45: 00 01-09 17:15 :03 Yes 1{patch } 1 patch, Transderma l (Apply To Skin), Administer over 24 Hours, Q24H, First dose on Sun01/06/25 at 0845, Until Discontinu ed, Routine [facility] ipratropium -albuteroL (DUONEB) 0.5 mg-3 mg(2.5 mg base)/3 mL nebulizer solution 3 mL 01-06 12:32: 52 01-09 17:15 :03 No 3mL 3 mL, Inhalation , QIDPRN, Starting on Sun01/06/25 at 0732, Until Sun01/09/25 at 1215, Routine, Wheezing, Shortness of Breath, Bronchospa sm, Chest tightness [facility] FENTanyl (PF) (SUBLIMAZE) injection 50 mcg FENTanyl (PF) (SUBLIMAZE) injection 50 mcg 01-06 12:31: 42 01-09 17:15 :03 Yes 50ug 50 mcg, Slow IV Push, Q6HPRN, Starting on Sun01/06/25 at 0731, Until Sun01/09/25 at 1215, Routine, Pain (scale 7-10) [facility] NaCl 0.9% (NS) IV infusion 1,000 mL 01-06 12:00: 00 01-09 17:15 :03 No 1000mL at 125 mL/hr, IV Infusion, CONTINUOUS , Starting on Sun01/06/25 at 0700, Until Sun01/09/25 at 1215, Routine [facility] ondansetron (ZOFRAN (PF)) injection 4 mg ondansetron (ZOFRAN (PF)) injection 4 mg 01-06 11:48: 54 01-09 17:15 :03 Yes 4mg 4 mg, Slow IV Push, Q6HPRN, Starting on Sun01/06/25 at 0648, Until Sun01/09/25 at 1215, Administer over 2-5 Minutes, 2 mL [facility] HYDROcodone -acetaminop hen (NORCO 5) 5-325 mg tablet 1 tablet HYDROcodone -acetaminop hen (NORCO 5) 5-325 mg tablet 1 tablet 01-06 11:48: 50 Yes 1{tbl} 1 tablet, Oral, Q6HPRN, Starting on Sun01/06/25 at 0648, Until Discontinu ed, Routine, Pain (scale 4-6) [facility] acetaminoph en (TYLENOL) tablet 650 mg acetaminoph en (TYLENOL) tablet 650 mg 01-06 11:48: 48 01-09 17:15 :03 Yes 650mg 650 mg, Oral, Q6HPRN, Starting on Sun01/06/25 at 0648, Until Sun01/09/25 at 1215, Routine, Pain (scale 1-3) [facility] morpHINE (4 mg/mL) injection 4 mg 01-06 11:30: 00 01-06 10:40 :00 No 4mg 4 mg, Slow IV Push, ONCE, 1 dose, On Sun01/06/25 at 0630, STAT [facility] proMETHazin e (PHENERGAN) 25 mg in NS 50 mL IV piggyback (CNR) proMETHazin e (PHENERGAN) 25 mg in NS 50 mL IV piggyback (CNR) 01-06 10:45: 00 01-06 11:55 :00 Yes 25mg 25 mg, IV Piggyback, at 200 mL/hr Administer over 15 Minutes, ONCE, 1 dose, On Sun01/06/25 at 0545, TEREZA [facility] iopamidol (ISOVUE 370-500 mL) injection 65 mL 01-06 09:45: 00 01-06 09:45 :00 No [id number] 65mL 65 mL, Intravenou s, ONCE, 1 dose, On Sun01/06/25 at 0445, Routine [facility] morpHINE (4 mg/mL) injection 4 mg 01-06 08:30: 00 01-06 08:34 :00 No 4mg 4 mg, Slow IV Push, ONCE, 1 dose, On Sun01/06/25 at 0330, STAT [facility] ondansetron (ZOFRAN (PF)) injection 4 mg 01-06 08:00: 00 01-06 07:43 :00 No 4mg 4 mg, Slow IV Push, ONCE, 1 dose, On Sun01/06/25 at 0300, Administer over 2-5 Minutes, 2 mL [facility] NaCl 0.9% (NS) bolus infusion 1,000 mL 01-06 08:00: 00 01-06 08:49 :00 No 1000mL at 999 mL/hr, 1,000 mL, IV Infusion, ONCE, 1 dose, On Sun01/06/25 at 0300, STAT [facility] ondansetron 4 mg disintegrat ing tablet 3-20 00:00: 00 01-09 00:00 :00 No [id number] 4mg Take 1 tablet by mouth every 4 (four) hours as needed for Nausea and Vomiting (N/V). [facility] dicyclomine 20 mg tablet 2024-0 3-20 00:00: 00 01-06 00:00 :00 No [id number] 20mg Take 1 tablet by mouth 4 (four) times daily. [facility] pantoprazol e 40 mg EC tablet 2024- 3-20 00:00: 00 01-06 00:00 :00 No [id number] 40mg Take 1 tablet by mouth in the morning. [facility] losartan 25 mg tablet 05-23 00:00: 00 06-07 05:59 :00 No [id number] 25mg Take 1 tablet by mouth in the morning for 14 days. [facility] predniSONE 20 mg tablet 05-23 00:00: 00 05-28 05:59 :00 No [id number] 40mg Take 2 tablets by mouth in the morning for 4 days. [facility] azithromyci n 500 mg tablet 05-23 00:00: 00 05-26 05:59 :00 No [id number] 500mg Take 1 tablet by mouth in the morning for 2 days. [facility] diphenoxyla te-atropine (LOMOTIL) 2.5-0.025 mg tablet 1 tablet 05-22 17:30: 00 05-22 16:55 :00 No 1{tbl} 1 tablet, Oral, ONCE, 1 dose, On Sun05/22/24 at 1130, TEREZA [facility] HYDROcodone -acetaminop hen (NORCO) 10-325 mg tablet 1 tablet 05-22 15:49: 01 05-22 18:19 :16 No 1{tbl} 1 tablet, Oral, Q6HPRN, Starting on Sun05/22/24 at 0949, Until Minnie 05/22/24 at 1219, Routine, Pain (scale 7-10) [facility] predniSONE (DELTASONE) tablet 40 mg 05-22 15:00: 00 Yes 40mg 40 mg, Oral, DAILY, First dose on Sun05/22/24 at 0900, Until Discontinu ed, Routine [facility] furosemide (LASIX) 20 mg tablet 05-22 12:19: 16 01-06 00:00 :00 No 20mg Take 1 tablet by mouth in the morning. [facility] HYDROcodone -acetaminop hen 7.5-325 mg per tablet 05-22 12:19: 14 05-22 00:00 :00 No 1{tbl} Take 1 tablet by mouth every 6 (six) hours as needed for Pain. [facility] acetaminoph en-codeine 300-30 mg tablet 05-22 00:00: 00 05-30 05:59 :00 No [id number] 1{tbl} Take 1 tablet by mouth every 6 (six) hours as needed for Pain (scale 7-10) or Pain (scale 4-6) for up to 7 days. Indication s: acute pain [facility] codeine-gua ifenesin 10-100 mg/5 mL oral solution 05-22 00:00: 00 05-29 05:59 :00 No [id number] 10mL Take 10 mL by mouth every 6 (six) hours as needed for Cough for up to 6 days. Indication s: acute pain, Cough [facility] amoxicillin -clavulanat e 875-125 mg per tablet 05-22 00:00: 00 05-28 05:59 :00 No [id number] 1{tbl} Take 1 tablet by mouth in the morning and 1 tablet in the evening. Do all this for 5 days. [facility] loperamide (IMODIUM A-D) 2 mg capsule 05-22 00:00: 00 05-27 05:59 :00 No [id number] 2mg Take 1 capsule by mouth every 6 (six) hours as needed for Diarrhea for up to 4 days. [facility] gabapentin (NEURONTIN) capsule 100 mg 05-21 20:00: 00 05-22 18:19 :16 No 100mg 100 mg, Oral, TID, First dose on Sun05/21/24 at 1400, Until Discontinu ed, Routine [facility] azithromyci n (ZITHROMAX) tablet 500 mg 05-21 19:45: 00 05-24 14:59 :00 No 500mg 500 mg, Oral, DAILY, 3 doses, First dose on Sun05/21/24 at 1345, Last dose on Sun05/23/24 at 0900, TEREZA, Reason for Anti-Infec tive: Documented Infection, Documented Infection Site: Respirator y, Duration of Therapy: Other (see Comments) [facility] methylPREDN ISolone sod succ (SOLU-MEDRO L (PF)) injection 40 mg 05-21 19:45: 00 05-22 02:00 :00 No 40mg 40 mg, Intravenou s, Q12H, 2 doses, First dose on Sun05/21/24 at 1345, Last dose on Sun05/21/24 at 1999, 1 mL [facility] loperamide (IMODIUM A-D) capsule 2 mg 05-21 19:30: 00 05-21 19:41 :00 No 2mg 2 mg, Oral, ONCE, 1 dose, On Sun05/21/24 at 1330, Routine [facility] HYDROcodone -acetaminop hen (NORCO 5) tablet 1 tablet 05-21 19:23: 28 05-22 18:19 :16 No 1{tbl} 1 tablet, Oral, Q4HPRN, Starting on Sun05/21/24 at 1323, Until Minnie 05/22/24 at 1219, Routine, Pain (scale 4-6) [facility] losartan (COZAAR) tablet 25 mg 05-21 18:15: 00 Yes 25mg 25 mg, Oral, DAILY, First dose on Sun05/21/24 at 1215, Until Discontinu ed, Routine [facility] KCL (KLOR-CON M20) tablet 40 mEq 05-21 15:45: 00 05-22 02:02 :00 No 40meq 40 mEq, Oral, BID, 2 doses, First dose on Sun05/21/24 at 0945, Last dose on Sun05/21/24 at 1999, Routine [facility] morphine (2 mg/mL) injection 2 mg 05-21 14:34: 26 05-22 15:49 :14 No 2mg 2 mg, Slow IV Push, Q6HPRN, Starting on Sun05/21/24 at 0834, Until Minnie 05/22/24 at 0949, Routine, Pain (scale 7-10) [facility] montelukast (SINGULAIR) tablet 10 mg 05-21 03:00: 00 05-22 18:19 :16 No 10mg 10 mg, Oral, QHS, First dose on Sun05/20/24 at 2100, Until Discontinu ed, Routine [facility] hydralAZINE (APRESOLINE ) injection 5 mg 05-21 02:00: 33 05-22 18:19 :16 No 5mg 5 mg, Slow IV Push, Q6HPRN, Starting on Sun05/20/24 at 2000, Until Sun05/22/24 at 1219, Routine, DBP=>100; SBP=>160 [facility] benzonatate (TESSALON PERLES) capsule 100 mg 05-20 20:00: 00 05-22 18:19 :16 No 100mg 100 mg, Oral, Q8H, First dose on Sun05/20/24 at 1400, Until Discontinu ed, Routine [facility] levalbutero l (XOPENEX) nebulizer solution 0.31 mg 05-20 20:00: 00 05-22 18:19 :16 No .31mg 0.31 mg, Inhalation , TID, First dose on Sun05/20/24 at 1400, Until Discontinu ed, Routine [facility] carisoprodo L (SOMA) tablet 350 mg 05-20 18:00: 00 05-22 18:19 :16 No 350mg 350 mg, Oral, QID, First dose on Sun05/20/24 at 1200, Until Discontinu ed, Routine [facility] potassium chloride in water 10 mEq/100 mL RTU 10 mEq 05-20 17:00: 00 05-20 18:37 :21 No 10meq 10 mEq, IV Infusion, Q1H ES, 2 doses, First dose on Sun05/20/24 at 1100, Last dose on Sun05/20/24 at 1200, Administer over 60 Minutes, 100 mL [facility] Lidocaine (LIDOCARE) 4 % patch 1 Patch 05-20 16:30: 00 05-21 04:26 :00 No 1{patch } 1 Patch, Topical, Administer over 12 Hours, ONCE, 1 dose, On Sun05/20/24 at 1030, [facility] codeine-gua ifenesin (ROBITUSSIN AC) 10-100 mg/5 mL oral solution 5 mL 05-20 16:15: 00 Yes 5mL 5 mL, Oral, Q12H, First dose on Sun05/20/24 at 1015, Until Discontinu ed, Routine [facility] fluticasone propionate 50 mcg/actuati on nasal spray 1 [place] 05-20 16:15: 00 05-22 18:19 :16 No 1{spray } [address] [place], Nasal, DAILY, First dose on Sun05/20/24 at 1015, Until Discontinu ed, Routine [facility] proMETHazin e (PHENERGAN) 12.5 mg in NS 50 mL IV piggyback (CNR) 05-20 16:13: 22 05-22 18:19 :16 No 12.5mg 12.5 mg, IV Piggyback, Q4HPRN, Administer over 15 Minutes, N/V unresponsi ve to Ondansetro n, Starting on Sun05/20/24 at 1013, Infuse through an IV catheter inserted in a large vein and preferably through a central venous catheter. Do not administer using IV catheters placed into veins in the hand or wrist. [facility] spironolact one (ALDACTONE) tablet 25 mg 05-20 15:00: 00 05-20 15:01 :00 No 25mg 25 mg, Oral, DAILY, 1 dose, First dose on Sun05/20/24 at 0900, Routine [facility] HYDROmorpho ne (DILAUDID) injection 0.5 mg 05-20 14:58: 37 05-21 14:34 :34 No .5mg 0.5 mg, Slow IV Push, Q6HPRN, Starting on Sun05/20/24 at 0858, Until Sun05/21/24 at 0834, Routine, Pain (scale 7-10), Is this medication approved by a Faculty level provider? Yes, light air defense artillery crewmember approving Restricted medication : NATHALIA SIMS [facility] potassium chloride in water 10 mEq/100 mL RTU 10 mEq 05-20 13:30: 00 05-20 14:39 :00 No 10meq 10 mEq, IV Infusion, Q1H ES, 1 dose, First dose (after last reorder) on Sun05/20/24 at 0730, Administer over 60 Minutes, 100 mL [facility] KCL (KLOR-CON M20) tablet 40 mEq 05-20 12:00: 00 05-20 12:31 :00 No 40meq 40 mEq, Oral, ONCE, 1 dose, On Sun05/20/24 at 0600, Routine [facility] potassium chloride in water 10 mEq/100 mL RTU 10 mEq 05-20 12:00: 00 05-20 13:59 :00 No 10meq 10 mEq, IV Infusion, Q1H ES, 2 doses, First dose (after last reorder) on Sun05/20/24 at 0600, Last dose on Sun05/20/24 at 0700, Administer over 60 Minutes, 100 mL [facility] dexamethaso ne (DECADRON PHOSPHATE) 4 mg/mL injection 2 mg 05-20 04:30: 00 05-21 06:20 :25 No 2mg 2 mg, Intravenou s, Q6H ABX, First dose on Sun05/19/24 at 2230, Until Discontinu ed, 1 mL [facility] ipratropium -albuteroL (DUONEB) 0.5 mg-3 mg(2.5 mg base)/3 mL nebulizer solution 3 mL 05-20 04:11: 48 05-22 18:19 :16 No 3mL 3 mL, Inhalation , Q6HPRN, Starting on Sun05/19/24 at 2211, Until Sun05/22/24 at 1219, Routine, Wheezing, Shortness of Breath, Chest tightness [facility] ondansetron (ZOFRAN (PF)) injection 4 mg 05-19 18:49: 42 05-21 19:40 :13 No 4mg 4 mg, Slow IV Push, Q6HPRN, Starting on Sun05/19/24 at 1249, Until Sun05/21/24 at 1340, Administer over 2-5 Minutes, 2 mL [facility] morpHINE (4 mg/mL) injection 4 mg 05-19 18:49: 40 05-20 14:13 :54 No 4mg 4 mg, Slow IV Push, Q4HPRN, Starting on Sun05/19/24 at 1249, Until Sun05/20/24 at 0813, Routine, Pain (scale 7-10) [facility] HYDROcodone -acetaminop hen (NORCO 5) tablet 1 tablet 05-19 18:49: 38 05-21 18:48 :38 No 1{tbl} 1 tablet, Oral, Q6HPRN, Starting on Sun05/19/24 at 1249, Until Sun05/21/24 at 1248, Routine, Pain (scale 4-6) [facility] acetaminoph en (TYLENOL) tablet 650 mg 05-19 18:49: 27 05-22 18:19 :16 No [facility] potassium chloride in water (KCL) 20 mEq/100 mL IV infusion 20 mEq 05-19 17:00: 00 05-19 19:48 :00 No 20meq 20 mEq, IV Infusion, at 50 mL/hr Administer over 2 Hours, ONCE, 1 dose, On Sun05/19/24 at 1100, Routine [facility] ondansetron (ZOFRAN (PF)) injection 4 mg 05-19 16:09: 00 05-19 16:18 :00 No 4mg 4 mg, Slow IV Push, ONCE, 1 dose, On Sun05/19/24 at 1015, Administer over 2-5 Minutes, 2 mL [facility] morpHINE (4 mg/mL) injection 4 mg 05-19 16:09: 00 05-19 16:17 :00 No 4mg 4 mg, Slow IV Push, ONCE, 1 dose, On Sun05/19/24 at 1015, STAT [facility] KCL (KLOR-CON M20) tablet 40 mEq 05-19 15:30: 00 05-19 15:37 :00 No 40meq 40 mEq, Oral, ONCE, 1 dose, On Sun05/19/24 at 0930, Routine [facility] ondansetron (ZOFRAN (PF)) injection 4 mg 05-19 13:00: 00 05-19 13:08 :00 No 4mg 4 mg, Slow IV Push, ONCE, 1 dose, On Sun05/19/24 at 0700, Administer over 2-5 Minutes, 2 mL [facility] ketorolac (TORADOL) injection 15 mg 05-19 12:56: 00 05-19 13:06 :00 No 15mg 15 mg, Slow IV Push, ONCE, 1 dose, On Sun05/19/24 at 0700, TEREZA [facility] ampicillin- sulbactam (UNASYN) 3 g in NaCl 0.9% (NS) 100 mL MINI-BAG 05-18 20:30: 00 05-25 20:29 :00 No 3g 3 g, IV Piggyback, Q6H ABX, 28 doses, First dose on Sun05/18/24 at 1430, Last dose on Sun05/25/24 at 0830, Administer over 30 Minutes, 100 mL, Reason for Anti-Infec tive: Documented Infection, Documented Infection Site: Respirator y, Duration of Therapy: 7 days [facility] ondansetron (ZOFRAN (PF)) injection 4 mg 05-18 19:19: 23 Yes 4mg [facility] acetaminoph en (TYLENOL) tablet 650 mg 05-18 19:19: 08 Yes 650mg [facility] KCL (KLOR-CON M20) tablet 40 mEq 05-18 19:15: 00 05-18 19:14 :00 No 40meq 40 mEq, Oral, ONCE, 1 dose, On Sun05/18/24 at 1315, TEREZA [facility] ondansetron (ZOFRAN (PF)) injection 4 mg 05-18 19:15: 00 05-18 19:15 :00 No 4mg 4 mg, Slow IV Push, ONCE, 1 dose, On Sun05/18/24 at 1315, Administer over 2-5 Minutes, 2 mL [facility] morpHINE (4 mg/mL) injection 4 mg 05-18 19:15: 00 05-18 19:13 :00 No 4mg 4 mg, Slow IV Push, ONCE, 1 dose, On Sun05/18/24 at 1315, STAT [facility] iopamidol (ISOVUE 370-500 mL) injection 85 mL 05-18 18:45: 00 05-18 18:45 :00 No [id number] 85mL 85 mL, Intravenou s, ONCE, 1 dose, On Sun05/18/24 at 1245, Routine [facility] magnesium sulfate in D5W 1 gram/100 mL RTU IV Piggyback 1 g 05-18 18:00: 00 05-18 18:45 :00 No 1g 1 g, IV Piggyback, ONCE, 1 dose, On Sun05/18/24 at 1200, Administer over 60 Minutes, 100 mL [facility] KCL (KLOR-CON M20) tablet 40 mEq 05-18 17:15: 00 05-18 17:24 :00 No 40meq 40 mEq, Oral, ONCE, 1 dose, On Sun05/18/24 at 1115, Routine [facility] NaCl 0.9% (NS) bolus infusion 250 mL 05-18 16:30: 00 05-18 17:00 :00 No 250mL at 999 mL/hr, 250 mL, IV Infusion, ONCE, 1 dose, On Sun05/18/24 at 1030, STAT [facility] ondansetron (ZOFRAN (PF)) injection 4 mg 05-18 16:30: 00 05-18 16:24 :00 No 4mg 4 mg, Slow IV Push, ONCE, 1 dose, On Sun05/18/24 at 1030, Administer over 2-5 Minutes, 2 mL [facility] ondansetron 4 mg disintegrat ing tablet 05-18 00:00: 00 05-19 00:00 :00 No [id number] 4mg Take 1 tablet by mouth every 8 (eight) hours as needed for Nausea and Vomiting (N/V). [facility] benzonatate 100 mg capsule 05-18 00:00: 00 05-19 00:00 :00 No [id number] 100mg Take 1 capsule by mouth 3 (three) times daily as needed for Cough. [facility] octreotide (SANDOSTATI N) 500 mcg in NaCl 0.9% (NS) 100 mL infusion 12-03 19:30: 00 Yes 50ug/h 50 mcg/hr (10 mL/hr), IV Infusion, CONTINUOUS , Starting on Sun12/04/23 at 1430 [facility] pantoprazol e (PROTONIX) 80 mg in NaCl 0.9% (NS) 500 mL infusion 12-03 19:30: 00 Yes 8mg/h 8 mg/hr (50 mL/hr), IV Infusion, CONTINUOUS , Starting on Sun12/04/23 at 1430 [facility] pantoprazol e (PROTONIX) injection 80 mg 12-03 19:30: 00 12-03 20:01 :00 No 80mg 80 mg, Slow IV Push, ONCE, 1 dose, On Sun12/04/23 at 1430, Routine [facility] octreotide (SANDOSTATI N) injection 25 mcg 12-03 18:30: 00 12-03 19:58 :00 No 25ug 25 mcg, Slow IV Push, ONCE, 1 dose, On Sun12/04/23 at 1330, STAT, Indication : Acute Variceal Hemorrhage in a Cirrhotic Patient [facility] ondansetron (ZOFRAN (PF)) injection 4 mg 09-29 08:15: 00 09-29 08:17 :00 No 4mg 4 mg, Slow IV Push, ONCE, 1 dose, On Sun09/30/23 at 0315, TEREZA [facility] morpHINE (4 mg/mL) injection 4 mg 09-29 08:15: 00 09-29 08:18 :00 No 4mg 4 mg, Slow IV Push, ONCE, 1 dose, On Sun09/30/23 at 0315, STAT [facility] pantoprazol e (PROTONIX) injection 40 mg 09-29 08:15: 00 09-29 08:15 :00 No 40mg 40 mg, Slow IV Push, ONCE NOW, 1 dose, On Sun09/30/23 at 0315 [facility] iopamidol (ISOVUE 370-500 mL) injection 85 mL 09-29 07:15: 00 09-29 07:15 :00 No [id number] 85mL 85 mL, Intravenou s, ONCE, 1 dose, On Sun09/30/23 at 0215, Routine [facility] NaCl 0.9% (NS) bolus infusion 1,000 mL 09-29 06:15: 00 09-29 08:18 :00 No 1000mL at 999 mL/hr, 1,000 mL, IV Infusion, ONCE, 1 dose, On Sun09/30/23 at 0115[facility] (PF[facility] 4 mg 09-29 05:30: 00 09-29 05:29 :00 No 4mg 4 mg, Slow IV Push, ONCE, 1 dose, On Sun09/30/23 at 0030, TEREZA [facility] morpHINE (4 mg/mL) injection 4 mg 09-29 05:30: 00 09-29 05:29 :00 No 4mg 4 mg, Slow IV Push, ONCE, 1 dose, On Sun09/30/23 at 0030, STAT [facility] aspirin chewable tablet 324 mg 09-29 05:30: 00 09-29 05:29 :00 No 314mg 324 mg (rounded from 314 mg), Oral, ONCE NOW, 1 dose, On Sun09/30/23 at 0030, Routine [facility] loperamide (IMODIUM A-D) 2 mg capsule 09-29 00:00: 00 05-22 00:00 :00 No [id number] 2mg Take 1 capsule by mouth every 6 (six) hours as needed for Diarrhea. [facility] proMETHazin e 25 mg tablet 09-29 00:00: 00 05-19 00:00 :00 No [id number] 25mg Take 1 tablet by mouth every 6 (six) hours as needed for Nausea and Vomiting (N/V). [facility] dicyclomine 20 mg tablet 09-29 00:00: 00 05-19 00:00 :00 No [id number] 20mg Take 1 tablet by mouth 4 (four) times daily as needed for Abdominal pain. [facility] pantoprazol e 40 mg EC tablet 09-29 00:00: 00 05-19 00:00 :00 No [id number] 40mg Take 1 tablet by mouth in the morning. [facility] dicyclomine (BENTYL) injection 20 mg 2021-04 17:15: 00 03-14 16:29 :00 No 20mg 20 mg, Intramuscu lar, ONCE, 1 dose, On Sun03/14/22 at 1115, TEREZA [facility] NaCl 0.9% (NS) bolus infusion 1,000 mL 2021-04 17:00: 00 03-14 18:35 :00 No 1000mL at 999 mL/hr, 1,000 mL, IV Infusion, ONCE, 1 dose, On Sun03/14/22 at 1100, TEREZA [facility] ondansetron (ZOFRAN (PF)) injection 4 mg 2021-04 16:15: 00 03-14 16:11 :00 No 4mg 4 mg, Slow IV Push, ONCE, 1 dose, On Sun03/14/22 at 1015, TEREZA [facility] ondansetron 4 mg disintegrat ing tablet 2021-04 00:00: 00 Yes [id number] 4mg Take 1 tablet by mouth every 8 (eight) hours as needed for Nausea and Vomiting (N/V). [facility] dicyclomine 20 mg tablet 2021-04 00:00: 00 05-19 00:00 :00 No [id number] 20mg Take 1 tablet by mouth 4 (four) times daily as needed for Abdominal pain. [facility] NaCl 0.9% (NS) bolus infusion 1,000 mL 12-21 23:15: 00 12-22 00:13 :00 No 1000mL at 999 mL/hr, 1,000 mL, IV Infusion, ONCE, 1 dose, On Sun12/21/21 at 1815, STAT [facility] dexamethaso ne (DECADRON PHOSPHATE) injection 10 mg 05-13 14:00: 00 05-13 13:04 :00 No 10mg 10 mg, Intramuscu lar, ONCE, 1 dose, Sun05/13/19 at 0800, STAT [facility] ibuprofen 800 mg tablet 05-13 00:00: 00 05-19 00:00 :00 No [id number] 9102 800mg Take 1 tablet by mouth every 8 (eight) hours as needed for Pain (scale 4-6). [facility] acetaminoph en-codeine (TYLENOL-CO DEINE #3) 300-30 mg tablet 2014-04 00:00: 00 01-06 00:00 :00 No 1{tbl} Take 1 Tab by mouth every 4 (four) hours as needed for Pain (scale 7-10). [facility] Vital Signs Vital Name Observation Time Observation Value Comments S shanice Systolic blood pressure 2025-01-09 17:00:00 114 mm[Hg] [facility] Diastolic blood pressure 2025-01-09 17:00:00 89 mm[Hg] [facility] Heart rate 2025-01-09 17:00:00 98 /min Un[facility] Respiratory rate 2025-01-09 17:00:00 20 /min [facility] Oxygen saturation in Arterial blood by Pulse oximetry 2025-01-09 17:00:00 98 /min [facility] Body temperature 2025-01-09 16:45:00 37.22 Samantha [facility] Body weight 2025-01-09 11:00:00 58.968 kg [facility] BMI 2025-01-09 11:00:00 19.20 kg/m2 [facility] Body height 2025-01-06 12:11:00 175.3 cm [facility] Systolic blood pressure 2024-05-22 18:02:00 157 mm[Hg] [facility] Diastolic blood pressure 2024-05-22 18:02:00 88 mm[Hg] [facility] Heart rate 2024-05-22 18:02:00 65 /min Un[facility] Body temperature 2024-05-22 17:11:00 36.17 Samantha [facility] Respiratory rate 2024-05-22 17:11:00 19 /min [facility] Oxygen saturation in Arterial blood by Pulse oximetry 2024-05-22 17:11:00 95 /min [facility] Body weight 2024-05-22 09:29:00 65.998 kg [facility] BMI 2024-05-22 09:29:00 21.49 kg/m2 [facility] Body height 2024-05-19 18:07:00 175.3 cm [facility] Systolic blood pressure 2024-05-18 19:15:00 142 mm[Hg] [facility] Diastolic blood pressure 2024-05-18 19:15:00 81 mm[Hg] [facility] Heart rate 2024-05-18 19:15:00 80 /min [facility] Respiratory rate 2024-05-18 19:15:00 32 /min [facility] Oxygen saturation in Arterial blood by Pulse oximetry 2024-05-18 19:15:00 94 /min [facility] Body temperature 2024-05-18 15:55:00 37.11 Samantha [facility] Body height 2024-05-18 15:55:00 175.3 cm [facility] Body weight 2024-05-18 15:55:00 65.772 kg [facility] BMI 2024-05-18 15:55:00 21.41 kg/m2 [facility] Systolic blood pressure 2023-12-05 02:19:00 136 mm[Hg] [facility] Diastolic blood pressure 2023-12-05 02:19:00 9 mm[Hg] [facility] Heart rate 2023-12-05 02:19:00 73 /min Un[facility] Body temperature 2023-12-05 02:19:00 37.11 [facility] Respiratory rate 2023-12-05 02:19:00 15 /min [facility] Oxygen saturation in Arterial blood by Pulse oximetry 2023-12-05 02:19:00 99 /min [facility] Body height 2023-12-04 15:31:00 175.3 cm [facility] Body weight 2023-12-04 15:31:00 63.504 kg [facility] BMI 2023-12-04 15:31:00 20.67 kg/m2 [facility] Systolic blood pressure 2023-09-30 08:00:00 122 mm[Hg] [facility] Diastolic blood pressure 2023-09-30 08:00:00 72 mm[Hg] [facility] Heart rate 2023-09-30 08:00:00 69 /min [facility] Body temperature 2023-09-30 08:00:00 36.44 Samantha [facility] Respiratory rate 2023-09-30 08:00:00 12 /min [facility] Oxygen saturation in Arterial blood by Pulse oximetry 2023-09-30 08:00:00 100 /min [facility] Body height 2023-09-30 05:22:00 175.3 cm [facility] Body weight 2023-09-30 05:22:00 62.596 kg [facility] BMI 2023-09-30 05:22:00 20.38 kg/m2 [facility] HEIGHT 2022-05-13 19:30:00 174 cm WEIGHT 2022-05-13 19:30:00 72.5 kg HEIGHT 2022-05-13 19:30:00 174 cm WEIGHT 2022-05-13 19:30:00 72.5 kg Heart rate 2022-03-14 17:50:00 91 /min [facility] Respiratory rate 2022-03-14 17:50:00 17 /min [facility] Oxygen saturation in Arterial blood by Pulse oximetry 2022-03-14 17:50:00 98 /min [facility] Systolic blood pressure 2022-03-14 17:50:00 116 mm[Hg] [facility] Diastolic blood pressure 2022-03-14 17:50:00 78 mm[Hg] [facility] Body temperature 2022-03-14 15:58:00 36.67 Samantha [facility] Body height 2022-03-14 15:58:00 175.3 cm [facility] Body weight 2022-03-14 15:58:00 80.74 kg [facility] BMI 2022-03-14 15:58:00 26.29 kg/m2 [facility] Systolic blood pressure 2021-12-21 23:28:00 141 mm[Hg] [facility] Diastolic blood pressure 2021-12-21 23:28:00 99 mm[Hg] [facility] Heart rate 2021-12-21 23:28:00 105 /min [facility] Oxygen saturation in Arterial blood by Pulse oximetry 2021-12-21 23:28:00 99 /min [facility] Body temperature 2021-12-21 21:05:00 36.94 Samantha [facility] Respiratory rate 2021-12-21 21:05:00 18 /min [facility] Body height 2021-12-21 21:05:00 175.3 cm [facility] Body weight 2021-12-21 21:05:00 95.255 kg [facility] BMI 2021-12-21 21:05:00 31.01 kg/m2 [facility] Systolic blood pressure 2019-05-13 12:17:00 144 mm[Hg] [facility] Diastolic blood pressure 2019-05-13 12:17:00 97 mm[Hg] [facility] Heart rate 2019-05-13 12:17:00 73 /min [facility] Body temperature 2019-05-13 12:17:00 36.11 Samantha [facility] Respiratory rate 2019-05-13 12:17:00 12 /min [facility] Body height 2019-05-13 12:17:00 175.3 cm [facility] Body weight 2019-05-13 12:17:00 99.791 kg [facility] BMI 2019-05-13 12:17:00 32.49 kg/m2 [facility] Oxygen saturation in Arterial blood by Pulse oximetry 2019-05-13 12:17:00 98 /min [facility] Procedures Procedure Date / Time Performed Performing Clinician Source PHOSPHORUS 2025-01-09 11:19:00 Tammy Diaz [facility] MAGNESIUM 2025-01-09 11:19:00 Joe [facility] HEPATIC FUNCTION PANEL ([id number]) (ALB,T.PRO,BILI T,BU/BC,ALT,AST,ALK PHOS) 2025-01-09 11:19:[facility] (NA, K, CL, CO2, GLUCOSE, BUN, CREATININE, CA) 2025-01-09 11:19:00 Tammy Diaz [facility] LIPASE 2025-01-09 10:02[facility] 2025-01-09 10:02:00 [facility] 2025-01-08 08:20:00 Tammy Diaz [facility] LIPASE 2025-01-08 08:20:00 Joe [facility] MAGNESIUM 2025-01-08 08:20:00 Joe [facility] HEPATIC FUNCTION PANEL ([id number]) (ALB,T.PRO,BILI T,BU/BC,ALT,AST,ALK PHOS) 2025-01-08 08:20:00 Joe [facility] BASIC METABOLIC PANEL (NA, K, CL, CO2, GLUCOSE, BUN, CREATININE, CA) 2025-01-08 08:20:00 Joe [facility] CBC WITHOUT DIFF 2025-01-08 08:20:00 Tammy Diaz [facility] OCCULT (GUAIAC) BLOOD 2025-01-07 17:34:00 Richard [facility] BASIC METABOLIC PANEL (NA, K, CL, CO2, GLUCOSE, BUN, CREATININE, CA) 2025-01-07 16:20:[facility] 2025-01-07 08:33:00 Richard [facility] HEPATIC FUNCTION PANEL ([id number]) (ALB,T.PRO,BILI T,BU/BC,ALT,AST,ALK PHOS) 2025-01-07 08:33:00 Joe [facility] BASIC METABOLIC PANEL (NA, K, CL, CO2, GLUCOSE, BUN, CREATININE, CA) 2025-01-07 08:33:00 [facility] CBC WITH DIFF 2025-01-07 08:33:00 Richard [facility] BASIC METABOLIC PANEL (NA, K, CL, CO2, GLUCOSE, BUN, CREATININE, CA) 2025-01-06 19:14:[address] [facility] [address] ABDOMEN PELVIS W CONTRAST 2025-01-06 09:04:50 Shaina Tai [facility] HB ECG ROUTINE & RHYTHM STRIP 2025-01-06 08:54:50 [facility]25-01-06 08:52[facility]00 [facility] 2025-01-06 07:43:00 [facility] 2025-01-06 07:43:00 Abida [facility] OSMOLALITY, SERUM OR PLASMA 2025-01-06 07:43:00 Luz Ramos [facility] TROPONIN I 2025-01-06 07:43:00 Abida [facility] COMP. METABOLIC PANEL ([id number]) 2025-01-06 07:43:00 Abida [facility] LIPID PANEL ([id number])(TOTAL CHOLESTEROL, TRIGLYCERIDES, HDL) 2025-01-06 07:43:00 Shaina Tai [facility] CBC WITH DIFF 2025-01-06 07:43:00 Shaina Tai [facility] INFLUENZA A/B RSV COVID NAAT 2025-01-06 07:43:00 Abida [facility] MAGNESIUM 2024-05-22 09:28:00 Corazon Sanders [facility] BASIC METABOLIC PANEL (NA, K, CL, CO2, GLUCOSE, BUN, CREATININE, CA) 2024-05-22 09:28:00 Corazon Sanders [facility] CBC WITH DIFF 2024-05-22 09:28:00 Corazon Sanders [facility] MAGNESIUM 2024-05-21 10:06:00 Corazon Sanders [facility] BASIC METABOLIC PANEL (NA, K, CL, CO2, GLUCOSE, BUN, CREATININE, CA) 2024-05-21 10:06:00 [facility] 2024-05-21 10:06[facility]00 [facility] COM[facility]TE 2024-05-20 15:16:00 Nathalia Sims [facility] PHOSPHORUS 2024-05-20 10:22:00 Tammy Diaz [facility] MAGNESIUM 2024-05-20 10:22:00 Joe [facility] BASIC METABOLIC PANEL (NA, K, CL, CO2, GLUCOSE, BUN, CREATININE, CA) 2024-05-20 10:22:00 Joe [facility] CBC WITH DIFF 2024-05-20 10:22:00 [facility] CLOSTRIDIUM DIFFICILE TOXIN 2024-05-19 23:26:00 Joe [facility] FECAL PATHOGENS BY PCR 2024-05-19 23:26:00 Ranjna Diaz [facility] CT ABDOMEN PELVIS WO CONTRAST 2024-05-19 15:49:23 Cisco [facility] HB ECG ROUTINE & RHYTHM STRIP 2024-05-19 13:29:40 Cisco [facility] LIPASE 2024-05-19 13:04:00 Barbara Casper [facility] MAGNESIUM 2024-05-19 13:04:00 Cisco [facility] TROPONIN I 2024-05-19 13:04:00 Cisco Barbara [facility] COMP. METABOLIC PANEL ([id number]) 2024-05-19 13:04:[facility]FF 2024-05-19 13:04:00 Barbara Casper [facility] URINALYSIS 2024-05-19 13:04:00 Barbara Casper [facility] CT CHEST PULMONARY ANGIOGRAM 2024-05-18 17:59:14 Adrienne Paredes [facility] MAGNESIUM 2024-05-18 16:22:00 Adrienne Paredes [facility] TROPONIN I 2024-05-18 16:22:00 Adrienne Paredes [facility] COMP. METABOLIC PANEL ([id number]) 2024-05-18 16:22[facility] 2024-05-18 16:22:00 Adrienne Paredes [facility] RAPID STREP SCREEN FOR GROUP A 2024-05-18 16:22:00 Adrienne Paredse [facility] INFLUENZA A/B RSV COVID NAAT 2024-05-18 16:22:00 Adrienne Paredes [facility] N-TERMINAL PRO-BNP 2024-05-18 16:22:00 Adrienne Merino [facility] PREPARE PACKED RBC 2023-12-04 23:33:11 Emily Bernal [facility] DUPLEX VENOUS LEGS BILATERAL - BY VASCULAR LAB 2023-12-04 20:35:51 Emily Bernal [facility] TRANSFUSE PACKED RBC 2023-12-04 20:10:00 Beverly Bernal [facility] URINALYSIS 2023-12-04 18:07:00 Emily Bernal [facility] HB ECG ROUTINE & RHYTHM STRIP 2023-12-04 17:51:03 Emily Bernal [facility] TROPONIN I 2023-12-04 16:20:00 Emily Bernal [facility] COMP. METABOLIC PANEL ([id number]) 2023-12-04 16:20:00 Emily Bernal [facility] CBC WITH DIFF 2023-12-04 16:20:00 Emily Bernal [facility] PROTHROMBIN TIME / INR 2023-12-04 16:20:00 Roberth Bernal [facility] ACTIVATED PARTIAL THRMPLAS DMITRI 2023-12-04 16:20:00 Emily Bernal [facility] HB ABO GROUPING 2023-12-04 16:20:00 [facility] 2023-12-04 16:20:00 Emily Bernal [facility] XR CHEST 1 VW 2023-12-04 16:07:00 Emily Bernal [facility] EKG-12 LEAD 2023-09-30 08:26:13 Cornelius Louie [facility] CT ABDOMEN PELVIS W CONTRAST 2023-09-30 06:29:00 Cornelius Louie [facility] XR CHEST 2 VW 2023-09-30 06:15:00 Cornelius Louie [facility] URINALYSIS 2023-09-30 05:57:00 Cornelius Louie [facility] LIPASE 2023-09-30 05:30:00 Cornelius Louie [facility] TROPONIN I 2023-09-30 05:30:00 Cornelius Louie [facility] COMP. METABOLIC PANEL ([id number]) 2023-09-30 05:30:00 Cornelius Louie [facility] CBC WITH DIFF 2023-09-30 05:30:00 Cornelius Louie [facility] HC LAB HIV-1 AG W/HIV-1&2 AB 2022-05-13 21:29:00 Anant Valle [facility] HEPATITIS C ANTIBODY 2022-05-13 21:29:00 Anant Valle [facility] US GALL BLADDER 2022-03-14 16:51:00 Dar Figueroa [facility] LIPASE 2022-03-14 16:08:00 Dar Figueroa [facility] TROPONIN I 2022-03-14 16:08:00 Dar Figueroa [facility] COMP. METABOLIC PANEL ([id number]) 2022-03-14 16:08:00 Dar Figueroa [facility] CBC WITH DIFF 2022-03-14 16:08:00 Dar Figueroa [facility] PROTHROMBIN TIME / INR 2022-03-14 16:08:00 Nellie Figueroa [facility] URINALYSIS 2022-03-14 16:06:00 Dar Figueroa [facility] CONSENT/REFUSAL FOR DIAGNOSIS AND TREATMENT 2022-03-14 15:50:19 Doctor Unassigned, [place] [facility] LIPASE 2021-12-21 22:16:00 Luís Gaxiola [facility] CBC WITH DIFF 2021-12-21 22:16:00 Luís Gaxiola [facility] CONSENT/REFUSAL FOR DIAGNOSIS AND TREATMENT 2021-12-21 20:56:27 Doctor Unassigned, [place] [facility] AUTHORIZATION FOR RELEASE OF PHI 2019-07-03 05:01:00 Doctor Unassigned, [place] [facility] XR LUMBAR SPINE 3 VW 2019-05-13 12:52:24 Aysha Tai i [facility] Plan of Care Planned Activity Planned Date Details Comments Source Future Scheduled Test 2022-04-23 00:00:00 DEPRESSION SCREENING (12+) [code = DEPRESSION SCREENING (12+)] [facility] Future Scheduled Test 2021-12-22 00:00:00 INFLUENZA VACCINE (#1) [code = INFLUENZA VACCINE (#1)] [facility] Future Scheduled Test 2018-01-14 00:00:00 SHINGLES VACCINES (1 of 2) [code = SHINGLES VACCINES (1 of 2)] [facility] Future Scheduled Test 2003-01-14 00:00:00 Lipid panel (procedure) [code = [id number]] [facility] Future Scheduled Test 1987-01-14 00:00:00 DTAP/TDAP/TD VACCINES (1 - Tdap) [code = DTAP/TDAP/TD VACCINES (1 - Tdap)] [facility] Future Scheduled Test 1986-01-14 00:00:00 HEPATITIS C SCREENING [code = HEPATITIS C SCREENING] [facility] Future Scheduled Test 1980 00:00:00 Tobacco Cessation Counseling and Screening (12+) [code = Tobacco Cessation Counseling and Screening (12+)] [facility] Future Scheduled Test 1968 00:00:00 COVID-19 VACCINE (#1) [code = COVID-19 VACCINE (#1)] [facility] Future Scheduled Test 1968 00:00:00 CT Colonography (combo) [code = CT Colonography (combo)] [facility] Future Scheduled Test 1968 00:00:00 Screening for malignant neoplasm of colon (procedure) [code = 625950211] [facility] Future Scheduled Test 1968 00:00:00 Screening for malignant neoplasm of colon (procedure) [code = 246920134] [facility] Future Scheduled Test 1968 00:00:00 Screening for malignant neoplasm of colon (procedure) [code = 654196531] [facility] Future Scheduled Test 1968 00:00:00 Screening for malignant neoplasm of colon (procedure) [code = 245628376] [facility] Future Scheduled Test 1968 00:00:00 Sigmoidoscopy [code = Sigmoidoscopy] [facility] Encounters Start Date/Time End Date/Time Encounter Type Admission Type Attending [facility] Facility Care Department Encounter ID Source 2022-03-23 00:00:00 Hospital Encounter [facility] [id number] [facility] 2025-01-06 02:17:00 2025-01-09 12:07:00 Hospital Encounter X Shaina Tai David Edionwe, [facility] 1..840.114 350.1.13.10 4.2.7.2.686 [id number] [facility] 2024-07-10 05:10:00 2024-07-10 06:51:00 Emergency X EMILY BERNAL DONNELL [facility] ERT [id number] [facility] 2024-05-23 00:00:00 2024-05-23 16:19:19 Transition of Care Marifer Goldman Maria [facility] 1..840.114 350.1.13.10 4.2.7.2.686 [id number] [facility] 2024-05-19 06:46:00 2024-05-22 12:15:00 Inpatient X TAMMY DIAZ [facility] [id number] [facility] 2024-05-19 06:46:00 2024-05-22 12:15:00 Hospital Encounter Barbara Casper Jelani [facility] 1..840.114 350.1.13.10 4.2.7.2.686 [id number] [facility] 2024-05-18 09:57:00 2024-05-18 13:46:00 Inpatient X NITO DIAZLANI [facility] MOHAN [id number] [facility] 2024-05-18 09:57:00 2024-05-18 13:46:00 Hospital Encounter Samanthadurgaleon Adirennea Tammy Diaz [facility] 1.2.840.114 350.1.13.10 4.2.7.2.686 [id number] [facility] 2024-01-03 00:00:00 2024-01-03 00:00:00 Outpatient DANIEL WOMACK [facility] [id number] [facility] 2023-12-04 10:40:00 2023-12-04 21:32:00 Emergency X EMILY BERNAL DONNELL [facility] ERT [id number] [facility] 2023-12-04 10:40:00 2023-12-04 21:32:00 Emergency Emily Bernal [facility] 1..840.114 350.1.13.10 4.2.7.2.686 [id number] [facility] 2023-09-30 00:15:00 2023-09-30 03:34:00 Emergency Cornelius Louie [facility] 1.2.840.114 350.1.13.10 4.2.7.2.686 [id number] [facility] 2022-08-12 21:44:00 2022-08-12 22:06:00 Emergency X SHAINA TAI [facility] ERT [id number] [facility] 2022-08-12 21:44:00 2022-08-12 22:06:00 Emergency Shaina Tai [facility] 1.2.840.114 350.1.13.10 4.2.7.2.686 [id number] [facility] 2022-05-13 19:10:00 2022-05-15 08:10:00 Inpatient ER MARIANELA RODRIGUEZ [facility] Medical ICU [id number] [facility] 2022-03-14 09:59:00 2022-03-14 12:40:00 Emergency X CORA FIGUEROAANNE [facility] ERT [id number] [facility] 2022-03-14 09:59:00 2022-03-14 12:40:00 Emergency Cora Figueroaanne [facility] 1.2.840.114 350.1.13.10 4.2.7.2.686 [id number] [facility] 2022-03-14 00:00:00 2022-03-14 00:00:00 Orders Only Doctor Unassigned, [place] [facility] 1.2840.114 350.1.13.10 4.2.7.2.686 [id number] [facility] 2021-12-21 16:07:00 2021-12-21 19:12:00 Emergency X GAXIOLALUÍS [facility] ERT [id number] [facility] 2021-12-21 16:07:00 2021-12-21 19:12:00 Emergency Luís Gaxiola [facility] 1.2.840.114 350.1.13.10 4.2.7.2.686 [id number] [facility] 2019-07-03 00:00:00 2019-07-03 00:00:00 Orders Only Doctor Unassigned, [place] [facility] 1.2840.114 350.1.13.10 4.2.7.2.686 [id number] [facility] 2019-05-13 06:13:04 2019-05-13 07:59:00 Emergency Shaina Tai [facility] 1.2.840.114 350.1.13.10 4.2.7.2.686 [id number] [facility] 2019-05-13 06:13:04 2019-05-13 07:59:00 Emergency X SHAINA TAI [facility] ERT [id number] [facility] Results Test Description Test Time Test Comments Results Result Co mments Source [facility] (NA, K, CL, CO2, GLUCOSE, BUN, CREATININE, CA)2025-01-09 12:00:25* Test Item Value Reference Range Interpretation Comme nts NA (test code = 6757710539) 134 mmol/L 135-145 L K (test code = 6977932900) 3.3 mmol/L 3.5-5.0 L CL (test code = 6569282237) 105 mmol/L 98-108 CO2 TOTAL (test code = 6036145093) 24 mmol/L 23-31 AGAP (test code = 7766806616) 5 2-16 BUN (test code = 0815751342) 5 mg/dL 7-23 L GLUCOSE (test code = 7436786300) 150 mg/dL 70-110 H CREATININE (test code = 2160-0) 0.46 mg/dL 0.60-1.25 L CALCIUM (test code = 4113537444) 8.7 mg/dL 8.6-10.6 eGFR (test code = 32903-0) 122.8 mL/min/1.73m2 CKD-EPI eGFR (2020). Assuming creatinine has been stable day-to-day for at least three months, the eGFR indicates Category G1 (>= 90 mL/min/1.73 m2) Lab Interpretation (test code = 11920-2) [facility] (ALB,T.PRO,BILI T,BU/BC,ALT,AST,ALK PHOS)2025-01-09 12:00:05* Test Item Value Reference Range Interpretation Comme nts TOTAL BILI (test code = 2670566473) 0.6 mg/dL 0.1-1.1 BILI UNCON (test code = 4066130542) 0.3 mg/dL 0.1-1.1 BILI CONJ (test code = 3342659947) 0 mg/dL 0.0-0.3 T PROTEIN (test code = 4758384173) 5.9 g/dL 6.3-8.2 L ALBUMIN (test code = 6269711546) 3.5 g/dL 3.5-5.0 ALK PHOS (test code = 4255193486) 77 U/L 34-122 ALTv (test code = 1742-6) 72 U/L 5-50 H AST(SGOT) (test code = 9497173774) 91 U/L 13-40 H Lab Interpretation (test cod e = 37756-4) [facility]2025-09-19 12:00:05* Test Item Value Reference Range Interpretation Comme nts PHOSPHORUS (test code = 5227342527) 2.4 mg/dL 2.5-5.0 L Lab Interpretation (test cod e = 13129-0) [facility] w [id number] 09:46:50ORDERING PHYSICIAN: SHAINA TAI CLINICAL HISTORY: Abdominal pain COMPARISON: None available. TECHNIQUE: Helical CT images of the abdomen and pelvis obtained with IVcontrast. CT scan performed according to ALARA (As low as reasonablyachievable) principles. FINDINGS: Heart size is normal. Liver is severely fatty infiltrated. Patient statuspost cholecystectomy. The pancreas contains calcifications and ductalectasia. There is no surrounding inflammatory change. The spleen andadrenals are unremarkable. Bladder is distended. No bladder wallthickening. There is fullness of the renal collecting systems bilaterally,possibly related to the distended bladder and reflux. There are smallnonobstructive stones in both kidneys, measuring up to 3 mm. There is a 1cm cyst in the upper pole of the right kidney. There is no evidence forappendicitis. Bones are unremarkable. 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 Upp erabdominal varices are stable.[facility] (TTE) Qjwnenn7102-65-90 17:31:01* Test Item Value Reference Range Interpretation Comme nts Height (test code = 1702658803) 69 in Weight (test code = 6610855057) 139 lbs Systolic BP (test code = 6627156655) 155 mmHg Diastolic BP (test code = 8046348639) 89 mmHg Heart Rate (test code = 2614053685) 66 bpm LV GLS Endo Peak A2C () (test code = 4305164222) -28.30 % LV GLS Endo Peak A3C () (test code = 2462740636) -19.30 % LV GLS Endo Peak A4C () (test code = 8103413331) -22.50 % LV GLS Endo Peak Avg () (test code = 0752050774) -23.40 % BSA (test code = 0514979867) 1.77 m2 Ao root diam (test code = 3505769549) 3.30 cm Aortic root (test code = 9183021427) 3.3 cm Ao root annulus (test code = 7565595151) 3.3 cm LVOT diameter (test code = 6080229003) 1.94 cm LVOT area (test code = 3004714959) 3.00 cm2 LA size (test code = 1961246763) 3.2 cm LVIDD (test code = 8988365463) 3.90 cm Left Ventricular End Diastolic Volume by Teichholz Method (test code = 1438876) 67.8 mL IVS (test code = 6928439206) 1.25 cm Interventricular Septum Diastolic Thickness by 2D (test code = 9307069) 1.25 cm LVPWD (test code = 3212249853) 1.26 cm PW (test code = 1161405720) 1.26 cm 0.6-1.1 EF(Teich) (test code = 6270031019) 63.00 % LVIDS (test code = 4344402817) 2.60 cm Left Ventricular End Systolic Volume by Teichholz Method (test code = 5571520) 25.1 mL FS (test code = 5796488074) 34 % EF - 2D (test code = 72200462) 63.00 % E wave decelartion time (test code = 8799283389) 0.27 s MV Peak A Jodie (test code = 4595363790) 84.4 cm/s MV stenosis pressure 1/2 time (test code = 5152213187) 78.4 ms MV Peak E Jodie (test code = 4009328202) 77.6 cm/s E/A ratio (test code = 7179386509) 0.92 ratio LAV(MOD-sp4) (test code = 6987021165) 21.00 mL MV Prop V (test code = 0351295454) 28.90 cm/s MV E/e' septal (test code = 8219382924) 14.5 cm/s Tapse (test code = 9604465059) 2.50 cm LVOT stroke volume (test code = 8738336586) 88.10 cm3 LVOT peak jodie (test code = 6272551049) 165.3 cm/s LVOT mn grad (test code = 6440763984) 4.0 mmHg AV LVOT peak gradient (test code = 0957934938) 10.9 mmHg LVOT peak VTI (test code = 4082405084) 29.7 cm LV V1 mean (test code = 2966757537) 93.60 cm/s Aortic valve mean velocity (test code = 1426315662) 100.1 cm/s Ao peak jodie (test code = 1827091304) 146.9 cm/s Ao VTI (test code = 8950270700) 29.3 cm AV area by cont VTI (test code = 2397796680) 3.0 cm2 AV area peak jodie (test code = 9928122591) 3.3 cm2 Ao max PG (test code = 6135256008) 8.60 mm[Hg] AV peak gradient (test code = 3168764416) 8.6 mmHg AV valve area (test code = 5576401968) 3.00 cm2 AV mean gradient (test code = 7946757937) 4.4 mmHg Radiology Study observation (narrative) (test code = 84174-1) REANNA (test code = REANNA) ?Left?Ventricle: Left ventricle size is normal. Normal wall thickness. Normal wall motion. Normal systolic function with a visually estimated EF of 60 - 65%. Global longitudinal strain -23.4% (normal). Normal diastolic function. ?Right?Ventricle: Right ventricle size is normal. Normal systolic function. ?Tricuspid?Valve: Insufficient tricuspid regurgitation jet to estimate RVSP . ?RA pressure is 0-5 mmHg. Left VentricleLeft ventricle size is normal. Normal wall thickness. Normal wall motion. Normal systolic function with a visually estimated EF of 60 - 65%. Global longitudinal strain -23.4% (normal). Normal diastolic function.Right VentricleRight ventricle size is normal. Normal systolic function.Left AtriumLeft atrium size is normal.Right AtriumRight atrium size is normal.IVC/SVCIVC diameter is less than or equal to 21 mm and decreases greater than 50% during inspiration; therefore the estimated right atrial pressure is normal (~0-5 mmHg).Mitral ValveMitral valve structure is normal. Trace transvalvular regurgitation.Tricusp id ValveTricuspid valve structure is normal. Trace transvalvular regurgitation. Insufficient tricuspid regurgitation jet to estimate RVSP . RA pressure is 0-5 mmHg.Aortic ValveTricuspid.Pulmon ic ValveNot well visualized.Ascending AortaNormal sized aorta.PericardiumThe pericardium is normal. No pericardial effusion.Study DetailsStudy quality was adequate. A complete echocardiogram was performed using 2D, color flow Doppler, spectral Doppler and strain. [facility] with Vquqeefqbsxg2787-18-76 11:41:08* Test Item Value Reference Range Interpretation Comme nts WBC (test code = 6690-2) 3.08 4.20-10.70 L RBC (test code = 789-8) 3.82 4.26-5.52 L HGB (test code = 718-7) 12.8 g/dL 12.2-16.4 HCT (test code = 4544-3) 36.6 % 38.4-49.3 L MCV (test code = 787-2) 95.8 fL 81.7-95.6 H MCH (test code = 785-6) 33.5 pg 26.1-32.7 H MCHC (test code = 786-4) 35.0 g/dL 31.2-35.0 RDW-SD (test code = 23827-3) 49.5 fL 38.5-51.6 RDW-CV (test code = 788-0) 14.2 % 12.1-15.4 PLT (test code = 777-3) 87 150-328 L MPV (test code = 61207-4) 11.1 fL 9.8-13.0 IPF % (test code = 2820800925) 6.2 % 1.2-10.7 Platelet count measured by fluorescence method. NRBC/100 WBC (test code = 8899639619) 0.0 0.0-10.0 NRBC x10^3 (test code = 0176889296) See_Comment [Automated [employer]] The system which generated this result transmitted reference range: 10*3/?L. The reference range was not used to interpret this result as normal/abnormal. GRAN MAT (NEUT) % (test code = 770-8) 64.7 % IMM GRAN % (test code = 9471845563) 0.60 % LYMPH % (test code = 736-9) 26.0 % MONO % (test code = 5905-5) 8.1 % EOS % (test code = 713-8) 0.3 % BASO % (test code = 706-2) 0.3 % GRAN MAT x10^3(ANC) (test code = 5635178237) 1.99 10*3/uL 1.99-6.95 IMM GRAN x10^3 (test code = 1863930078) 0.00-0.06 LYMPH x10^3 (test code = 731-0) 0.80 10*3/uL 1.09-3.23 L MONO x10^3 (test code = 742-7) 0.25 10*3/uL 0.36-1.02 L EOS x10^3 (test code = 711-2) 0.06-0.53 L BASO x10^3 (test code = 704-7) 0.01-0.09 Lab Interpretation (test code = 67972-2) [facility] wo jnaoardq7975-37-49 17:50:10EXAM: CT ABDOMEN PELVIS WO CONTRAST HISTORY: 54 years-old Male; Abdominal pain, acute, nonlocalized. TECHNIQUE: Contiguous axial imaging from the level of the lung basesthrough the proximal thighs was performed without the intravenousadministration of contrast. Coronal and sagittal reconstructions wereobtained. COMPARISON: CT abdomen dated 09/30/[address] chest dated 05/18/2024 FINDINGS: LOWER THORAX: Scattered tree-in-bud opacities in the bilateral lung bases,right worse than left, may represent aspiration or developing infection. Acalcified granuloma is again seen in the right lower lobe. LIVER: The liver appears enlarged secondary to a Massimo lobe. No suspicioushepatic lesion is seen within the limits of a non contrast examination.Areas of focal steatosis are noted adjacent to the gallbladder fossa. GALLBLADDER AND BILIARY TREE: Postsurgical changes of cholecystectomy areseen. No biliary ductal dilation is visualized. SPLEEN: The spleen is mildly enlarged and measures wnyazjtxhrmaf26.7 cm. PANCREAS: Sequelae of chronic pancreatitis are again noted with markedparenchymal atrophy and calcification. ADRENAL GLANDS: No mass is seen. KIDNEYS: Normal size and appearance. A 1.3 cm renal cortical cyst is againseen in the right superior pole. Multiple nonobstructing stones are seen inthe bilateral kidneys measuring up to 5 mm on the right and 4 mm on theleft. No hydronephrosis is visualized. PELVIS/BLADDER: The bladder is unremarkable. No suspicious pelvic mass isseen. GI TRACT: No obstruction is seen. The appendix appears unremarkable.Gastric embolization material is again noted. Radiopaque material partiallyopacifies the esophageal lumen and enters the stomach. PERITONEUM AND RETROPERITONEUM: No intra-abdominal free air or fluidcollection is visualized. LYMPH NODES: No suspicious lymphadenopathy is seen. VESSELS: Mild atherosclerotic calcification of the abdominal aortaandiliac branches is seen. BONES AND SOFT TISSUES: No suspicious osseous lesion is seen.Age-indeterminant compression deformity with 50% height loss at L1 is againseen. A small, fat- containing periumbilical hernia is present.[facility] Czzelawgu3756-87-68 15:58:35* Test Item Value Reference Range Interpretation Comme nts MAGNESIUM (test code = 5730969214) 2.3 mg/dL 1.7-2.4 Slight hemolysis Lab Interpretation (test code = 16781-4) [facility] [id number] 14:16:51* Test Item Value Reference Range Interpretation Comme nts WBC (test code = 6690-2) 5.53 4.20-10.70 RBC (test code = 789-8) 4.27 4.26-5.52 HGB (test code = 718-7) 14.6 g/dL 12.2-16.4 HCT (test code = 4544-3) 41.3 % 38.4-49.3 MCV (test code = 787-2) 96.7 fL 81.7-95.6 H MCH (test code = 785-6) 34.2 pg 26.1-32.7 H MCHC (test code = 786-4) 35.4 g/dL 31.2-35.0 H RDW-SD (test code = 40167-7) 51.3 fL 38.5-51.6 RDW-CV (test code = 788-0) 14.4 % 12.1-15.4 PLT (test code = 777-3) 85 150-328 L MPV (test code = 68316-2) 11.6 fL 9.8-13.0 IPF % (test code = 9624884291) 8.1 % 1.2-10.7 Platelet count measured by fluorescence method. NRBC/100 WBC (test code = 6664869274) 0.0 0.0-10.0 NRBC x10^3 (test code = 7289204398) See_Comment [Automated [employer] ge] The system which generated this result transmitted reference range: 10*3/?L. The reference range was not used to interpret this result as normal/abnormal. GRAN MAT (NEUT) % (test code = 770-8) 77.0 % IMM GRAN % (test code = 2214235667) 0.90 % LYMPH % (test code = 736-9) 13.4 % MONO % (test code = 5905-5) 8.5 % EOS % (test code = 713-8) 0.0 % BASO % (test code = 706-2) 0.2 % GRAN MAT x10^3(ANC) (test code = 2197309310) 4.26 10*3/uL 1.99-6.95 IMM GRAN x10^3 (test code = 3396777851) 0.05 10*3/uL 0.00-0.06 LYMPH x10^3 (test code = 731-0) 0.74 10*3/uL 1.09-3.23 L MONO x10^3 (test code = 742-7) 0.47 10*3/uL 0.36-1.02 EOS x10^3 (test code = 711-2) 0.06-0.53 L BASO x10^3 (test code = 704-7) 0.01-0.09 ELLIPTO/OVAL (test code = 42489-2) 2+ See_Comment A [Automated [employer] ge] The system which generated this result transmitted reference range: (none). The reference range was not used to interpret this result as normal/abnormal. SPHEROCYTES (test code = 802-9) 1+ A TOXIC CHANGES (test code = 803-7) Present A GIANT PLATELETS (test code = 5908-9) Present See_Comment A [Automated [employer]] The system which generated this result transmitted reference range: (none). The reference range was not used to interpret this result as normal/abnormal. Lab Interpretation (test code = 81363-0) Abnormal [facility]. METABOLIC PANEL (95527)2024-05-19 13:59:02* Test Item Value Reference Range Interpretation Comme nts NA (test code = 3611313991) 134 mmol/L 135-145 L K (test code = 8896690086) 2.4 mmol/L 3.5-5.0 LL CL (test code = 7575364816) 96 mmol/L 98-108 L CO2 TOTAL (test code = 7498198512) 31 mmol/L 23-31 AGAP (test code = 1175004696) 7 2-16 BUN (test code = 3310146432) 7 mg/dL 7-23 GLUCOSE (test code = 1788284143) 143 mg/dL 70-110 H CREATININE (test code = 2160-0) 0.54 mg/dL 0.60-1.25 L TOTAL BILI (test code = 2075277116) 0.5 mg/dL 0.1-1.1 CALCIUM (test code = 8444769303) 8.4 mg/dL 8.6-10.6 L T PROTEIN (test code = 2295482204) 7.6 g/dL 6.3-8.2 ALBUMIN (test code = 5227119913) 4.1 g/dL 3.5-5.0 ALK PHOS (test code = 1177854408) 121 U/L 34-122 ALTv (test code = 1742-6) 31 U/L 5-50 AST(SGOT) (test code = 1713274972) 41 U/L 13-40 H eGFR (test code = 00772-9) 117.0 mL/min/1.73m2 CKD-EPI eGFR (2020). Assuming creatinine has been stable day-to-day for at least three months, the eGFR indicates Category G1 (>= 90 mL/min/1.73 m2) Lab Interpretation (test code = 65098-6) [facility] [id number] 13:50:48* Test Item Value Reference Range Interpretation Comme nts TROPONIN I (test code = 9724812255) 0.008 ng/mL <=0.034 REANNA (test code = REANNA) Reference (Normal) Range (defined by the 99th percentile reference [...] to patient's use of biotin. Lab Interpretation (test code = 48589-3) [facility]2025-[facility]-27 13:39:26* Test Item Value Reference Range Interpretation Comme nts LIPASE (test code = 6430684542) 49 U/L 0-220 Lab Interpretation (test cod e = 95393-6) [facility] pulmonary tdbjaqxby4173-51-27 19:08:50PROCEDURE: CT ANGIO CHEST WITH CONTRAST - PE PROTOCOL CLINICAL INDICATION: PE suspected, high pretest prob ? COMPARISON: Abdominal CT from September 30, 2023. TECHNIQUE: ?Helical CT was performed and reconstructed at 1.25 mm slicethickness from lung base to apices after the administration of intravenouscontrast. Display field of view: 40 ?cm. FINDINGS: PULMONARY ARTERIES:Enhancement is adequate (HU 442), and there is no intraluminal fillingdefect in the main, lobar, segmental, or subsegmental branches of thepulmonary arteries to suggest pulmonary embolism. CHEST:Lower neck/thyroid: Unremarkable. Lungs and Pleura: Apical predominant confluent centrilobular emphysema .Right upper lobe 6 mm solid pulmonary nodule versus a scarring (9, 63).There are small groundglass nodular opacities with lzmi-cl-qpoghqqqbkaccydi nodules in the basilar right lower lobe and right middle lobeassociated with mild bronchiectasis. Bilateral diffuse peribronchialcuffing and predominantly right lung bronchial wall thickening. ?No pleuraleffusion or pneumothorax is visualized. There is a basilar right lower lobethyroid granuloma. Central airway: The central airways are patent. No bronchiectasis, mucusplugging, or b ronchial wall thickening. Heart and thoracic great vessels: The heart is normal in size. ?Nodetectable coronary arterial calcification. No pericardial effusion isidentified. The thoracic aorta and arch vessels are normal in caliber. Lymph nodes: No enlarged axillary, mediastinal, or hilar lymphadenopathy byCT criteria. Thoracic spine and chest wall: New compression deformity with 50% heightloss at L1. Visualized upper abdomen: Gastric embolization material is again noted.Thickening of the gastric fundal wall corresponds with marked varicosiswhich is noted on prior abdominal CT. Chronic pancreatitis with markedatrophic parenchyma and calcification. Mild splenomegaly at 13.7 cm. Remotecholecystectomy. Few 2 to 3 mm bilateral renal stones.[facility] Heights[facility]esium2025-01-26 17:28:29* Test Item Value Reference Range Interpretation Comme nts MAGNESIUM (test code = 3608849350) 1.7 mg/dL 1.7-2.4 Lab Interpretation (test cod e = 62949-7) Normal [facility] with Fipf8689-85-15 17:28:18* Test Item Value Reference Range Interpretation Comme nts WBC (test code = 6690-2) 10.20 4.20-10.70 RBC (test code = 789-8) 4.64 4.26-5.52 HGB (test code = 718-7) 15.7 g/dL 12.2-16.4 HCT (test code = 4544-3) 43.9 % 38.4-49.3 MCV (test code = 787-2) 94.6 fL 81.7-95.6 MCH (test code = 785-6) 33.8 pg 26.1-32.7 H MCHC (test code = 786-4) 35.8 g/dL 31.2-35.0 H RDW-SD (test code = 90868-4) 49.6 fL 38.5-51.6 RDW-CV (test code = 788-0) 14.1 % 12.1-15.4 PLT (test code = 777-3) 95 150-328 L MPV (test code = 16382-0) 10.9 fL 9.8-13.0 IPF % (test code = 5873080241) 9.4 % 1.2-10.7 Platelet count measured by fluorescence method. NRBC/100 WBC (test code = 0489811707) 0.0 0.0-10.0 NRBC x10^3 (test code = 7204949583) See_Comment [Automated messa ge] The system which generated this result transmitted reference range: 10*3/?L. The reference range was not used to interpret this result as normal/abnormal. GRAN MAT (NEUT) % (test code = 770-8) 81.2 % IMM GRAN % (test code = 5867495368) 0.50 % LYMPH % (test code = 736-9) 12.1 % MONO % (test code = 5905-5) 6.0 % EOS % (test code = 713-8) 0.1 % BASO % (test code = 706-2) 0.1 % GRAN MAT x10^3(ANC) (test code = 4238602780) 8.29 10*3/uL 1.99-6.95 H IMM GRAN x10^3 (test code = 5630917193) 0.05 10*3/uL 0.00-0.06 LYMPH x10^3 (test code = 731-0) 1.23 10*3/uL 1.09-3.23 MONO x10^3 (test code = 742-7) 0.61 10*3/uL 0.36-1.02 EOS x10^3 (test code = 711-2) 0.06-0.53 L BASO x10^3 (test code = 704-7) 0.01-0.09 Lab Interpretation (test code = 21528-7) [facility] (10636)2024-05-18 17:11:43* Test Item Value Reference Range Interpretation Comme nts NA (test code = 9552561286) 129 mmol/L 135-145 L K (test code = 7250284163) 2.1 mmol/L 3.5-5.0 LL CL (test code = 2379462116) 90 mmol/L 98-108 L CO2 TOTAL (test code = 7219858053) 31 mmol/L 23-31 AGAP (test code = 1134191178) 8 2-16 BUN (test code = 1809182851) 12 mg/dL 7-23 GLUCOSE (test code = 2031189076) 156 mg/dL 70-110 H CREATININE (test code = 2160-0) 0.55 mg/dL 0.60-1.25 L TOTAL BILI (test code = 5283247350) 0.7 mg/dL 0.1-1.1 CALCIUM (test code = 0969325909) 8.8 mg/dL 8.6-10.6 T PROTEIN (test code = 5218782648) 8.1 g/dL 6.3-8.2 ALBUMIN (test code = 9152787184) 4.4 g/dL 3.5-5.0 ALK PHOS (test code = 2867178699) 131 U/L 34-122 H ALTv (test code = 1742-6) 33 U/L 5-50 AST(SGOT) (test code = 6766726370) 46 U/L 13-40 H eGFR (test code = 53458-0) 116.3 mL/min/1.73m2 CKD-EPI eGFR (2020). Assuming creatinine has been stable day-to-day for at least three months, the eGFR indicates Category G1 (>= 90 mL/min/1.73 m2) Lab Interpretation (test code = 63913-8) [facility] [id number] 17:06:06* Test Item Value Reference Range Interpretation Comme nts TROPONIN I (test code = 0070783024) 0.008 ng/mL <=0.034 REANNA (test code = REANNA) Reference (Normal) Range (defined by the 99th percentile reference [...] to patient's use of biotin. Lab Interpretation (test code = 75621-9) Normal [facility] Fat-[id number] 17:03:26* Test Item Value Reference Range Interpretation Comme nts NT-proBNP (test code = 34093-4) 104 pg/mL <=125 Lab Interpretation (test cod e = 54546-8) Normal [facility] Packed RBC (in units), 2 Units 2023-12-04 23:33:11* Test Item Value Reference Range Interpretation Comme nts Cross Match Result (test code = 4409) Compatible ISBT Blood Type Code (test code = 168535) 5100 Unit Blood Type (test code = 4410) O Pos Unit Number (test code = 4411) [id number] Blood Expiration Date & Time (test code = 304504) [id number] Status Information (test code = 4412) Issued Product Identification (test code = 4413) Red Blood Cells Product Code (test code = 4414) [id number] Performed at [facility] Laboratory Services - [facility] Blood [address] [place] [address] Free: [phone] No. [id number] [facility] 1 [id number] 18:47:55EXAM: XR CHEST 1 VW HISTORY: 53 years-old Male with dyspnea . TECHNIQUE: Single frontal view of thechest. COMPARISON: Chest radiograph dated 09/30/2023.[facility] WITH [id number] 17:38:58* Test Item Value Reference Range Interpretation Comme nts WBC (test code = 6690-2) 2.35 4.20-10.70 L RBC (test code = 789-8) 2.18 4.26-5.52 L HGB (test code = 718-7) 4.2 g/dL 12.2-16.4 LL HCT (test code = 4544-3) 16.5 % 38.4-49.3 L MCV (test code = 787-2) 75.7 fL 81.7-95.6 L MCH (test code = 785-6) 19.3 pg 26.1-32.7 L MCHC (test code = 786-4) 25.5 g/dL 31.2-35.0 L RDW-SD (test code = 25873-6) 50.4 fL 38.5-51.6 RDW-CV (test code = 788-0) 18.7 % 12.1-15.4 H PLT (test code = 777-3) 96 150-328 L MPV (test code = 82570-6) 11.0 fL 9.8-13.0 IPF % (test code = 1459973491) 6.6 % 1.2-10.7 Platelet count measured by fluorescence method. NRBC/100 WBC (test code = 7693385822) 0.0 0.0-10.0 NRBC x10^3 (test code = 0558828542) See_Comment [Automated messa ge] The system which generated this result transmitted reference range: 10*3/?L. The reference range was not used to interpret this result as normal/abnormal. GRAN MAT (NEUT) % (test code = 770-8) 63.0 % IMM GRAN % (test code = 0430785168) 0.40 % LYMPH % (test code = 736-9) 26.0 % MONO % (test code = 5905-5) 8.9 % EOS % (test code = 713-8) 1.3 % BASO % (test code = 706-2) 0.4 % GRAN MAT x10^3(ANC) (test code = 7905244167) 1.48 10*3/uL 1.99-6.95 L IMM GRAN x10^3 (test code = 8990682939) 0.00-0.06 LYMPH x10^3 (test code = 731-0) 0.61 10*3/uL 1.09-3.23 L MONO x10^3 (test code = 742-7) 0.21 10*3/uL 0.36-1.02 L EOS x10^3 (test code = 711-2) 0.03 10*3/uL 0.06-0.53 L BASO x10^3 (test code = 704-7) 0.01-0.09 POLYCHROMASIA (test code = 96210-2) 2+ See_Comment [Automated [employer]] The system which generated this result transmitted reference range: 2+. The reference range was not used to interpret this result as normal/abnormal. SCHISTOCYTES (test code = 800-3) 1+ A HYPERSEG NEUTS (test code = 765-8) Present See_Comment A [Automated [employer]] The system which generated this result transmitted reference range: (none). The reference range was not used to interpret this result as normal/abnormal. Lab Interpretation (test code = 56025-2) Abnormal [facility] HeightsTROPONIN [id number] 17:15:22* Test Item Value Reference Range Interpretation Comme nts TROPONIN I (test code = 9910649290) 0.003 ng/mL <=0.034 REANNA (test code = REANNA) Reference (Normal) Range (defined by the 99th percentile reference [...] to patient's use of biotin. Lab Interpretation (test code = 49978-4) Normal [facility] HeightsN-TERMINAL [id number] 17:12:59* Test Item Value Reference Range Interpretation Comme nts NT-proBNP (test code = 87822-8) 139 pg/mL <=125 REANNA (test code = REANNA) Result Indeterminate-Consid er causes of NT-proBNP elevation other than Heart failure such as acute coronary syndrome, pulmonary embolism, pulmonary hypertension, sepsis, stroke, and renal dysfunction. Lab Interpretation (test code = 11876-0) Abnormal [facility] HeightsCOMP. METABOLIC PANEL (24663)2023-12-04 17:04:55* Test Item Value Reference Range Interpretation Comme nts NA (test code = 4086245841) 137 mmol/L 135-145 K (test code = 3988497351) 3.5 mmol/L 3.5-5.0 CL (test code = 5316593884) 102 mmol/L 98-108 CO2 TOTAL (test code = 8151266601) 29 mmol/L 23-31 AGAP (test code = 3043841696) 6 2-16 BUN (test code = 3485504724) 11 mg/dL 7-23 GLUCOSE (test code = 3598365899) 92 mg/dL 70-110 CREATININE (test code = 2160-0) 0.94 mg/dL 0.60-1.25 TOTAL BILI (test code = 0710553728) 0.4 mg/dL 0.1-1.1 CALCIUM (test code = 8440103251) 8.2 mg/dL 8.6-10.6 L T PROTEIN (test code = 6106063410) 6.6 g/dL 6.3-8.2 ALBUMIN (test code = 3678887367) 3.5 g/dL 3.5-5.0 ALK PHOS (test code = 7384788529) 88 U/L 34-122 ALTv (test code = 1742-6) 13 U/L 5-50 AST(SGOT) (test code = 0293574012) 32 U/L 13-40 eGFR (test code = 99732-0) 95.7 mL/min/1.73m2 CKD-EPI eGFR (2020). Assuming creatinine has been stable day-to-day for at least three months, the eGFR indicates Category G1 (>= 90 mL/min/1.73 m2) Lab Interpretation (test code = 38942-2) Abnormal [facility] HeightsACTIVATED PARTIAL THRMPLAS [id number] 16:58:56* Test Item Value Reference Range Interpretation Comme [facility] APTT Patient (test code = 3173-2) 30 26-36 REANNA (test code = REANNA) The [facility] patient population mean normal value for aPTT is 30 seconds. Lab Interpretation (test code = 23258-8) Normal [facility] HeightsPROTHROMBIN TIME / [id number] 16:58:56* Test Item Value Reference Range Interpretation Comme [facility] PROTIME PATIENT (test code = 5964-2) 10.9 10.1-12.6 INR (test code = 6301-6) 0.9 Normal INR <1.1; Warfarin Therapeutic range 2.0 to 3.0 or 2.5 to 3.5, depending upon the indications. Lab Interpretation (test code = 43977-0) Normal [facility] HeightsType and Screen - ONCE [id number] 16:46:00* Test Item Value Reference Range Interpretation Comme nts ABO & RH (test code = 20) O POSITIVE IAT (test code = 1185) Negative [facility] ABDOMEN PELVIS W [id number] 07:26:01Ordering physician: CORNELIUS LOUIE Indication: Right-sided and epigastric pain, nausea vomiting and diarrhea COMPARISON: Right upper quadrant ultrasound dated 03/14/2022 TECHNIQUE: Axial images of the abdomen and pelvis are performed followingadministration of intravenous contrast material. Images were reformatted inthe coronal and sagittal plane. CT scan was performed according to ALARA(as low as reasonably achievable) policy. FINDINGS: The lung bases are clear. There is a calcified granulomain theright lower lobe. The patient is status post cholecystectomy. Theextrahepatic common bile duct is prominent at 14 mm. There is mild centralintrahepatic biliary ductal dilatation. The spleen andadrenal glands arewithin normal limits. The pancreas is atrophic, with multiple parenchymalcalcifications. There are large varices in the proximal stomach. Thepatient is status post prior embolization in the gastric cardia. There arepunctate nonobstructing calculi in the kidneys bilaterally. There is a 13mm cortical cyst in the right kidney. There is no hydronephrosis. Noabdominal aortic aneurysmor dissection is appreciated. There is no free fluid in the pelvis. There are fluid-filled loops ofdistal small bowel and colon, with mucosal enhancement. There is no bowelobstruction, widespread diverticulosis or acute diverticulitis. Theappendix is identified and within normal limits. ?Bone windows through theabdomen and pelvis demonstrate no osseous destructive lesion. [facility] 2 [id number] 06:48:32Exam: Chest (2 Views), 09/30/2023 12:30 AM. Ordering Physician: CORNELIUS LOUIE. History: CP, sob . Technique: Two views of the chest. Comparison: None. Findings: No focal consolidation. No pneumothorax or effusion. Normal size of thecardiac silhouette. No acute osseous finding.[facility] HeightsTROPONIN [id number] 06:35:05* Test Item Value Reference Range Interpretation Comme nts TROPONIN I (test code = 0032185911) 0.004 ng/mL <=0.034 REANNA (test code = REANNA) Reference (Normal) Range (defined by the 99th percentile reference [...] to patient's use of biotin. Lab Interpretation (test code = 59653-2) Normal [facility]. METABOLIC PANEL (59144)2023-09-30 06:23:07* Test Item Value Reference Range Interpretation Comme nts NA (test code = 5793552810) 133 mmol/L 135-145 L K (test code = 6188980105) 3.5 mmol/L 3.5-5.0 CL (test code = 8532972619) 107 mmol/L 98-108 CO2 TOTAL (test code = 2273103437) 20 mmol/L 23-31 L AGAP (test code = 1647244355) 6 2-16 BUN (test code = 7511175258) 6 mg/dL 7-23 L GLUCOSE (test code = 1603987190) 111 mg/dL 70-110 H CREATININE (test code = 2160-0) 0.54 mg/dL 0.60-1.25 L TOTAL BILI (test code = 8886343697) 0.5 mg/dL 0.1-1.1 CALCIUM (test code = 6425066088) 8.4 mg/dL 8.6-10.6 L T PROTEIN (test code = 0693626804) 7.4 g/dL 6.3-8.2 ALBUMIN (test code = 1837077144) 4.1 g/dL 3.5-5.0 ALK PHOS (test code = 4330894904) 99 U/L 34-122 ALTv (test code = 1742-6) 28 U/L 5-50 AST(SGOT) (test code = 3515286584) 59 U/L 13-40 H eGFR (test code = 20454-6) 117.7 mL/min/1.73m2 CKD-EPI eGFR (2020). Assuming creatinine has been stable day-to-day for at least three months, the eGFR indicates Category G1 (>= 90 mL/min/1.73 m2) Lab Interpretation (test code = 58106-9) Abnormal [facility] HeightsLIPASE2024-06-09 06:23:07* Test Item Value Reference Range Interpretation Comme nts LIPASE (test code = 6680694688) 40 U/L 0-220 Lab Interpretation (test cod e = 10715-1) Normal [facility] WITH [id number] 06:05:26* Test Item Value Reference Range Interpretation Comme nts WBC (test code = 6690-2) 4.09 4.20-10.70 L RBC (test code = 789-8) 3.67 4.26-5.52 L HGB (test code = 718-7) 8.7 g/dL 12.2-16.4 L HCT (test code = 4544-3) 29.6 % 38.4-49.3 L MCV (test code = 787-2) 80.7 fL 81.7-95.6 L MCH (test code = 785-6) 23.7 pg 26.1-32.7 L MCHC (test code = 786-4) 29.4 g/dL 31.2-35.0 L RDW-SD (test code = 94178-8) 49.3 fL 38.5-51.6 RDW-CV (test code = 788-0) 17.0 % 12.1-15.4 H PLT (test code = 777-3) 145 150-328 L MPV (test code = 65801-2) 10.9 fL 9.8-13.0 NRBC/100 WBC (test code = 4192990341) 0.0 0.0-10.0 NRBC x10^3 (test code = 5445018358) See_Comment [Automated messa ge] The system which generated this result transmitted reference range: 10*3/?L. The reference range was not used to interpret this result as normal/abnormal. GRAN MAT (NEUT) % (test code = 770-8) 63.9 % IMM GRAN % (test code = 3116517143) 0.20 % LYMPH % (test code = 736-9) 28.1 % MONO % (test code = 5905-5) 6.8 % EOS % (test code = 713-8) 0.5 % BASO % (test code = 706-2) 0.5 % GRAN MAT x10^3(ANC) (test code = 3765696536) 2.61 10*3/uL 1.99-6.95 IMM GRAN x10^3 (test code = 2095058003) 0.00-0.06 LYMPH x10^3 (test code = 731-0) 1.15 10*3/uL 1.09-3.23 MONO x10^3 (test code = 742-7) 0.28 10*3/uL 0.36-1.02 L EOS x10^3 (test code = 711-2) 0.06-0.53 L BASO x10^3 (test code = 704-7) 0.01-0.09 Lab Interpretation (test code = 31872-4) Abnormal [facility] HeightsBLOOD [id number] 00:02:02* Test Item Value Reference Range Interpretation Comme nts CULTURE (BEAKER) (test code = 1095) No growth in 5 days BLOOD [id number] 22:01:03* Test Item Value Reference Range Interpretation Comme nts CULTURE (BEAKER) (test code = 1095) No growth in 5 days U/S, DUPLEX, [id number] 01:33:00assess portal and splenic vein patency and hydronephrosis noted on CT [facility] : 1970 Sex: MFINALREPORT History: assess portal and splenic vein patency and hydronephrosis noted on CT Abdominal ultrasound dated 05/14/2022 Comparison: None Comment: Real- time transabdominal ultrasound of the abdomen was performed. The examination is limited by limited cooperation by the patient, patient body habitus and limited patient mobility during imaging. Liver: 12.7 cm , normal. Normalechogenicity. No focal lesions. Gallbladder: Absent. Biliary tree: No intrahepatic ductal dilatation. CBD: 8.5 mm. Spleen: Mild splenomegaly, measuring 13.2 cm in maximum dimension. Pancreas: Obscured by overlying bowel gas. Right kidney: 11.1 x 5.4 x 5.5 cm. Normal echogenicity.Left kidney: 9.7 x 6.0 x 3.9 cm. Normal echogenicity.No hydronephrosis. No ascites is present in the abdomen. Real-time Pozo scale, color and spectral doppler ultrasound of the abdomen was performed to evaluate visceralblood flow. Main portal vein measures 1.2 cm in diameter. There is hepatopetal flow in the main portal vein with velocity 39.4 cm/sec. The right and left intrahepatic portal veins are patent with hepatopetal flow. Proper hepatic artery, right hepatic artery, and left hepatic artery are patent with resistive indices 0.6, 0.68, and 0.55 respectively. IVC, Hepatic venous confluence, right HV, middleHV and left HV are patent with appropriate flow.. The visualized abdominal aorta is normal in caliber. Impression: Limited examination, as described. Prior cholecystectomy. Unremarkable abdominal Doppler evaluation. Mild splenomegaly. No hydronephrosis. Signed: Darinel Young MDReport Verified Date/Time: 05/15/2022 01:33:33 U/S, ABDOMINAL, [id number] 01:33:00 Reason for exam:->assess portal and splenic vein patency and hydronephrosis noted on CTShould this be performed at the bedside?->Yes [facility] : 1970 Sex: MFINALREPORT History: assess portal and splenic vein patency and hydronephrosis noted on CT Abdominal ultrasound dated 05/14/2022 Comparison: None Comment: Real- time transabdominal ultrasound of the abdomen was performed. The examination is limited by limited cooperation by the patient, patient body habitus and limited patient mobility during imaging. Liver: 12.7 cm , normal. Normalechogenicity. No focal lesions. Gallbladder: Absent. Biliary tree: No intrahepatic ductal dilatation. CBD: 8.5 mm. Spleen: Mild splenomegaly, measuring 13.2 cm in maximum dimension. Pancreas: Obscured by overlying bowel gas. Right kidney: 11.1 x 5.4 x 5.5 cm. Normal echogenicity.Left kidney: 9.7 x 6.0 x 3.9 cm. Normal echogenicity.No hydronephrosis. No ascites is present in the abdomen. Real-time Pozo scale, color and spectral doppler ultrasound of the abdomen was performed to evaluate visceralblood flow. Main portal vein measures 1.2 cm in diameter. There is hepatopetal flow in the main portal vein with velocity 39.4 cm/sec. The right and left intrahepatic portal veins are patent with hepatopetal flow. Proper hepatic artery, right hepatic artery, and left hepatic artery are patent with resistive indices 0.6, 0.68, and 0.55 respectively. IVC, Hepatic venous confluence, right HV, middleHV and left HV are patent with appropriate flow.. The visualized abdominal aorta is normal in caliber. Impression: Limited examination, as described. Prior cholecystectomy. Unremarkable abdominal Doppler evaluation. Mild splenomegaly. No hydronephrosis. Signed: Darinel [place] Verified Date/Time: 05/15/2022 01:33:33 BASIC METABOLIC [id number] 19:19:15* Test Item Value Reference Range Interpretation Comme nts SODIUM (BEAKER) (test code = 381) 143 meq/L 136-145 POTASSIUM (BEAKER) (test code = 379) 4.0 meq/L 3.5-5.1 CHLORIDE (BEAKER) (test code = 382) 114 meq/L 98-107 H CO2 (BEAKER) (test code = 355) 19 meq/L 22-29 L BLOOD UREA NITROGEN (BEAKER) (test code = 354) 21 mg/dL 7-21 CREATININE (BEAKER) (test code = 358) 0.58 mg/dL 0.57-1.25 GLUCOSE RANDOM (BEAKER) (test code = 652) 103 mg/dL 70-105 CALCIUM (BEAKER) (test code = 697) 8.7 mg/dL 8.4-10.2 EGFR (BEAKER) (test code = 1092) 114 mL/min/1.73 sq m Interpretation of eG FR values Stage Description Result G1 Normal or high >=90 G2 Mildly decreased 60-89 G3a Mildly to moderately 45-59 G3b Moderately to severely 30-44 G4 Severly decreased 15-29 G5 Kidney failure <15Reported eGFR is based on the CKD-EPI 2020 equation that does not use a race coefficientEstimated GFR is not as accurate as Creatinine Clearance in predicting glomerular filtration rate. Estimated GFR is not applicable for dialysis patients Talent Buyer ID - MARCOCBC (HEMOGRAM ONLY)2022-05-14 18:57:26* Test Item Value Reference Range Interpretation Comme nts WHITE BLOOD CELL COUNT (BEAK ER) (test code = 775) 4.7 K/ L 3.5-10.5 RED BLOOD CELL COUNT (BEAKER ) (test code = 761) 2.38 M/ L 4.63-6.08 L HEMOGLOBIN (BEAKER) (test co de = 410) 7.4 GM/DL 13.7-17.5 L HEMATOCRIT (BEAKER) (test co de = 411) 22.4 % 40.1-51.0 L MEAN CORPUSCULAR VOLUME (HANS KER) (test code = 753) 94 fL 79-92 H MEAN CORPUSCULAR HEMOGLOBIN (BEAKER) (test code = 751) 31.1 pg 25.7-32.2 MEAN CORPUSCULAR HEMOGLOBIN CONC (BEAKER) (test code = 752) 33.0 GM/DL 32.3-36.5 RED CELL DISTRIBUTION WIDTH (BEAKER) (test code = 412) 18.9 % 11.6-14.4 H PLATELET COUNT (BEAKER) (pito t code = 756) 99 K/CU MM 150-450 L MEAN PLATELET VOLUME (BEAKER ) (test code = 754) 10.2 fL 9.4-12.4 NUCLEATED RED BLOOD CELLS (B EAKER) (test code = 413) 0 /100 WBC 0-0 POCT-GLUCOSE [id number] 18:52:17* Test Item Value Reference Range Interpretation Comme nts POC-GLUCOSE METER (BEAKER) (test code = 1538) 97 mg/dL 70-110 : TESTED AT [facility] [address] [place], [address]: Talent Buyer/Drug And Alcohol Treatment Specialist ID = [id number] for LANA HOLINE BLOOD GAS, [id number] 13:44:25* Test Item Value Reference Range Interpretation Comme nts PH VENOUS (BEAKER) (test cod e = 701) 7.34 7.32-7.42 PCO2 VENOUS (BEAKER) (test c ode = 755) 32 mm Hg 41-51 L PO2 VENOUS (BEAKER) (test co de = 702) 61 mm Hg 25-40 H O2 SATURATION VENOUS (BEAKER ) (test code = 703) 90.2 % 40.0-70.0 H HCO3 VENOUS (BEAKER) (test c ode = 705) 17 mmol/L 21-29 L BASE EXCESS VENOUS (BEAKER) (test code = 704) -8.0 mmol/L -2.0-3.0 L PATIENT TEMPERATURE (BEAKER) (test code = 1818) 37.0 FIO2 (BEAKER) (test code = 1819) 21.0 BASIC METABOLIC [id number] 11:57:39* Test Item Value Reference Range Interpretation Comme nts SODIUM (BEAKER) (test code = 381) 144 meq/L 136-145 POTASSIUM (BEAKER) (test code = 379) 4.4 meq/L 3.5-5.1 CHLORIDE (BEAKER) (test code = 382) 118 meq/L 98-107 H CO2 (BEAKER) (test code = 355) 15 meq/L 22-29 L BLOOD UREA NITROGEN (BEAKER) (test code = 354) 33 mg/dL 7-21 H CREATININE (BEAKER) (test code = 358) 0.63 mg/dL 0.57-1.25 GLUCOSE RANDOM (BEAKER) (test code = 652) 169 mg/dL 70-105 H CALCIUM (BEAKER) (test code = 697) 8.1 mg/dL 8.4-10.2 L EGFR (BEAKER) (test code = 1092) 112 mL/min/1.73 sq m Interpretation of eG FR values Stage Description Result G1 Normal or high >=90 G2 Mildly decreased 60-89 G3a Mildly to moderately 45-59 G3b Moderately to severely 30-44 G4 Severly decreased 15-29 G5 Kidney failure <15Reported eGFR is based on the CKD-EPI 2020 equation that does not use a race coefficientEstimated GFR is not as accurate as Creatinine Clearance in predicting glomerular filtration rate. Estimated GFR is not applicable for dialysis patients Talent Buyer ID - MARCOCBC (HEMOGRAM ONLY)2022-05-14 11:53:52* Test Item Value Reference Range Interpretation Comme nts WHITE BLOOD CELL COUNT (BEAK ER) (test code = 775) 5.1 K/ L 3.5-10.5 RED BLOOD CELL COUNT (BEAKER ) (test code = 761) 2.39 M/ L 4.63-6.08 L HEMOGLOBIN (BEAKER) (test co de = 410) 7.3 GM/DL 13.7-17.5 L HEMATOCRIT (BEAKER) (test co de = 411) 22.3 % 40.1-51.0 L MEAN CORPUSCULAR VOLUME (HANS KER) (test code = 753) 93 fL 79-92 H MEAN CORPUSCULAR HEMOGLOBIN (BEAKER) (test code = 751) 30.5 pg 25.7-32.2 MEAN CORPUSCULAR HEMOGLOBIN CONC (BEAKER) (test code = 752) 32.7 GM/DL 32.3-36.5 RED CELL DISTRIBUTION WIDTH (BEAKER) (test code = 412) 18.2 % 11.6-14.4 H PLATELET COUNT (BEAKER) (pito t code = 756) 95 K/CU MM 150-450 L MEAN PLATELET VOLUME (BEAKER ) (test code = 754) 10.0 fL 9.4-12.4 NUCLEATED RED BLOOD CELLS (B EAKER) (test code = 413) 0 /100 WBC 0-0 POCT-GLUCOSE [id number] 11:45:52* Test Item Value Reference Range Interpretation Comme nts POC-GLUCOSE METER (BEAKER) (test code = 1538) 165 mg/dL 70-110 H : TESTED AT [facility] [address] [facility], [address]: Talent Buyer/Drug And Alcohol Treatment Specialist ID = [id number] for EULALIA ROSA URINALYSIS W/ [id number] 11:33:39* Test Item Value Reference Range Interpretation Comme nts COLOR (BEAKER) (test code = 470) Light Yellow CLARITY (BEAKER) (test code = 469) Clear SPECIFIC GRAVITY UA (BEAKER) (test code = 468) 1.029 1.001-1.035 PH UA (BEAKER) (test code = 467) 6.5 5.0-8.0 PROTEIN UA (BEAKER) (test co de = 464) 20 mg/dL Negative A GLUCOSE UA (BEAKER) (test co de = 365) Negative Negative KETONES UA (BEAKER) (test co de = 371) Trace Negative A BILIRUBIN UA (BEAKER) (test code = 462) Negative Negative BLOOD UA (BEAKER) (test code = 461) Negative Negative NITRITE UA (BEAKER) (test co de = 465) Negative Negative LEUKOCYTE ESTERASE UA (BEAKE R) (test code = 466) Small Negative A UROBILINOGEN UA (BEAKER) (te st code = 463) 0.2 0.2-1.0 RBC UA (BEAKER) (test code = 519) 1 /HPF WBC UA (BEAKER) (test code = 520) 2 /HPF SOURCE(BEAKER) (test code = 2795) Urine, [place] Talent Buyer ID - [auto]Talent Buyer ID - [id number] 09:15:22* Test Item Value Reference Range Interpretation Comme nts CORTISOL, TOTAL (BEAKER) (te st code = 2755) 18.1 ug/dL 3.7-19.4 Talent Buyer ID - [id number] 09:07:46* Test Item Value Reference Range Interpretation Comme nts PROCALCITONIN (BEAKER) (test code = 3036) 22.66 ng/mL <0.05 HH SEPSIS RISK (ng/mL)Low: 0.05-0.50Intermediate: 0.51-2.00High: >=2.01FIBRINOGEN 2022-05-14 08:51:19* Test Item Value Reference Range Interpretation Comme nts FIBRINOGEN LEVEL (BEAKER) (t est code = 658) 228 mg/dl 225-434 CBC (HEMOGRAM ONLY)2022-05-14 08:44:52* Test Item Value Reference Range Interpretation Comme nts WHITE BLOOD CELL COUNT (BEAKER) (test code = 775) 7.1 K/ L 3.5-10.5 RED BLOOD CELL COUNT (BEAKER) (test code = 761) 2.38 M/ L 4.63-6.08 L HEMOGLOBIN (BEAKER) (test code = 410) 7.3 GM/DL 13.7-17.5 L HEMATOCRIT (BEAKER) (test code = 411) 22.0 % 40.1-51.0 L MEAN CORPUSCULAR VOLUME (BEAKER) (test code = 753) 92 fL 79-92 DISCORDANT MCV R ESULT COMPARED TO PREVIOUS RESULT; CLINICAL CORRELATION REQUIRED. MEAN CORPUSCULAR HEMOGLOBIN (BEAKER) (test code = 751) 30.7 pg 25.7-32.2 MEAN CORPUSCULAR HEMOGLOBIN CONC (BEAKER) (test code = 752) 33.2 GM/DL 32.3-36.5 RED CELL DISTRIBUTION WIDTH (BEAKER) (test code = 412) 17.9 % 11.6-14.4 H PLATELET COUNT (BEAKER) (test code = 756) 91 K/CU MM 150-450 L MEAN PLATELET VOLUME (BEAKER) (test code = 754) 10.0 fL 9.4-12.4 NUCLEATED RED BLOOD CELLS (BEAKER) (test code = 413) 0 /100 WBC 0-0 BLOOD GAS, [id number] 08:41:43* Test Item Value Reference Range Interpretation Comme nts PH ARTERIAL (BEAKER) (test c ode = 383) 7.43 7.35-7.45 PCO2 ARTERIAL (BEAKER) (test code = 384) 25 mm Hg 35-45 L PO2 ARTERIAL (BEAKER) (test code = 385) 182 mm Hg 80-90 H O2 SATURATION ARTERIAL (BEAK ER) (test code = 386) 99.3 % 96.0-97.0 H HCO3 ARTERIAL (BEAKER) (test code = 388) 16 mmol/L 21-29 L BASE EXCESS ARTERIAL (BEAKER ) (test code = 387) -7.1 mmol/L -2.0-3.0 L PATIENT TEMPERATURE (BEAKER) (test code = 1818) 37.0 FIO2 (BEAKER) (test code = 1819) 21.0 KETONE, [id number] 08:37:03* Test Item Value Reference Range Interpretation Comme nts KETONES, BLOOD (BEAKER) (pito t code = 1103) 0.3 mmol/L <0.4 LACTIC ACID, [id number] 06:29:57* Test Item Value Reference Range Interpretation Comme nts LACTATE BLOOD VENOUS (2) (BE RAUL) (test code = 2872) 1.18 mmol/L 0.50-2.20 Talent Buyer ID - PIAYA [id number] 03:30:54* Test Item Value Reference Range Interpretation Comme nts PHOSPHORUS (BEAKER) (test co de = 604) 2.7 mg/dL 2.3-4.7 Talent Buyer ID - PIAYA LCOMPREHENSIVE METABOLIC [id number] 03:30:53* Test Item Value Reference Range Interpretation Comme nts TOTAL PROTEIN (BEAKER) (test code = 770) 4.9 gm/dL 6.0-8.3 L ALBUMIN (BEAKER) (test code = 1145) 3.3 g/dL 3.5-5.0 L ALKALINE PHOSPHATASE (BEAKER) (test code = 346) 94 U/L 40-150 BILIRUBIN TOTAL (BEAKER) (test code = 377) 0.3 mg/dL 0.2-1.2 SODIUM (BEAKER) (test code = 381) 143 meq/L 136-145 POTASSIUM (BEAKER) (test code = 379) 4.0 meq/L 3.5-5.1 CHLORIDE (BEAKER) (test code = 382) 115 meq/L 98-107 H CO2 (BEAKER) (test code = 355) 13 meq/L 22-29 L BLOOD UREA NITROGEN (BEAKER) (test code = 354) 51 mg/dL 7-21 H CREATININE (BEAKER) (test code = 358) 0.68 mg/dL 0.57-1.25 GLUCOSE RANDOM (BEAKER) (test code = 652) 150 mg/dL 70-105 H CALCIUM (BEAKER) (test code = 697) 8.2 mg/dL 8.4-10.2 L AST (SGOT) (BEAKER) (test code = 353) 16 U/L 5-34 ALT (SGPT) (BEAKER) (test code = 347) 16 U/L 6-55 EGFR (BEAKER) (test code = 1092) 110 mL/min/1.73 sq m Interpretation of eG FR values Stage Description Result G1 Normal or high >=90 G2 Mildly decreased 60-89 G3a Mildly to moderately 45-59 G3b Moderately to severely 30-44 G4 Severly decreased 15-29 G5 Kidney failure <15Reported eGFR is based on the CKD-EPI 2020 equation that does not use a race coefficientEstimated GFR is not as accurate as Creatinine Clearance in predicting glomerular filtration rate. Estimated GFR is not applicable for dialysis patients Talent Buyer ID - KEITH [id number] 03:30:53* Test Item Value Reference Range Interpretation Comme nts MAGNESIUM (BEAKER) (test cod e = 627) 2.4 mg/dL 1.6-2.6 Talent Buyer ID - KEITH LCBC W/PLT COUNT & AUTO [id number] 03:25:16* Test Item Value Reference Range Interpretation Comme nts WHITE BLOOD CELL COUNT (BEAKER) (test code = 775) 7.9 K/ L 3.5-10.5 RED BLOOD CELL COUNT (BEAKER) (test code = 761) 1.85 M/ L 4.63-6.08 L HEMOGLOBIN (BEAKER) (test code = 410) 5.7 GM/DL 13.7-17.5 LL HEMATOCRIT (BEAKER) (test code = 411) 17.9 % 40.1-51.0 L MEAN CORPUSCULAR VOLUME (BEAKER) (test code = 753) 97 fL 79-92 H Patient received blood MEAN CORPUSCULAR HEMOGLOBIN (BEAKER) (test code = 751) 30.8 pg 25.7-32.2 MEAN CORPUSCULAR HEMOGLOBIN CONC (BEAKER) (test code = 752) 31.8 GM/DL 32.3-36.5 L RED CELL DISTRIBUTION WIDTH (BEAKER) (test code = 412) 17.4 % 11.6-14.4 H PLATELET COUNT (BEAKER) (test code = 756) 110 K/CU MM 150-450 L Verified with [id number], patient bleeding, receiving transfusions, no clot in tube MEAN PLATELET VOLUME (BEAKER) (test code = 754) 9.9 fL 9.4-12.4 NUCLEATED RED BLOOD CELLS (BEAKER) (test code = 413) 0 /100 WBC 0-0 NEUTROPHILS RELATIVE PERCENT (BEAKER) (test code = 429) 71 % LYMPHOCYTES RELATIVE PERCENT (BEAKER) (test code = 430) 23 % MONOCYTES RELATIVE PERCENT (BEAKER) (test code = 431) 6 % EOSINOPHILS RELATIVE PERCENT (BEAKER) (test code = 432) 0 % BASOPHILS RELATIVE PERCENT (BEAKER) (test code = 437) 0 % NEUTROPHILS ABSOLUTE COUNT (BEAKER) (test code = 670) 5.58 K/ L 1.78-5.38 H LYMPHOCYTES ABSOLUTE COUNT (BEAKER) (test code = 414) 1.81 K/ L 1.32-3.57 MONOCYTES ABSOLUTE COUNT (BEAKER) (test code = 415) 0.45 K/ L 0.30-0.82 EOSINOPHILS ABSOLUTE COUNT (BEAKER) (test code = 416) 0.01 K/ L 0.04-0.54 L BASOPHILS ABSOLUTE COUNT (BEAKER) (test code = 417) 0.01 K/ L 0.01-0.08 IMMATURE GRANULOCYTES-RELATIVE PERCENT (BEAKER) (test code = 2801) 0.60 % 0.00-1.00 CALCIUM, [id number] 03:19:28* Test Item Value Reference Range Interpretation Comme nts CALCIUM IONIZED (BEAKER) (te st code = 698) 1.14 mmol/L 1.12-1.27 PH, BLOOD (SYLVESTER) (test cod e = 1810) 7.46 HEPATITIS B [id number] 23:43:28* Test Item Value Reference Range Interpretation Comme nts HEPATITIS B CORE TOTAL ANTIB TRIP (SYLVESTER) (test code = 497) Nonreactive Nonreactive HEPATITIS B SURFACE ANTIBODY (SYLVESTER) (test code = 647) < mIU/mL <8.0 HEPATITIS B SURFACE ANTIGEN (2) (SYLVESTER) (test code = 2585) Nonreactive Nonreactive Talent Buyer ID - LINCOLNAIDEN LHIGH SENSITIVITY TROPONIN [id number] 23:41:51* Test Item Value Reference Range Interpretation Comme nts HIGH SENSITIVITY TROPONIN I (test code = 7837252) 6 pg/ml See_Comment [Automated [employer]] The system which generated this result transmitted reference range: <=35. The reference range was not used to interpret this result as normal/abnormal. Talent Buyer ID - KEITH LThe TOOL MACHINE SET UP OPERATOR STAT High Sensitivity Troponin-I results should be used in conjunction with other diagnostic information such as ECG, clinical observations and information, and patient symptoms to aid in the diagnosis of CT.T4, [id number] 23:14:30* Test Item Value Reference Range Interpretation Comme nts FREE T4 (SYLVESTER) (test code = 655) 0.61 ng/dL 0.70-1.48 L Talent Buyer ID - KEITH WHITAKEREPATITIS C [id number] 23:14:30* Test Item Value Reference Range Interpretation Comme nts HEPATITIS C ANTIBODY (SYLVESTER ) (test code = 367) Nonreactive Nonreactive Talent Buyer ID - KEITH LHIV-1 ANTIGEN WITH HIV-1/2 [id number] 23:14:30* Test Item Value Reference Range Interpretation Comme nts HIV-1 ANTIGEN WITH HIV 1\\T\\2 ANTIBODY (2) (SYLVESTER) (test code = 2586) Nonreactive Nonreactive Talent Buyer ID - KEITH LRAD, CHEST, 1 VIEW, NON [id number] 22:44:00Reason for exam:->hypotensionShould this be performed at the bedside?->Yes [facility] 1970 Sex: MFINALREPORT History: hypotension. Comparison: None. Findings: A single view of the chest is submitted. The cardiomediastinal contours are unremarkable. There is no focal consolidation, pneumothorax, large pleural effusion or evidence of overt pulmonary edema. There is no acute bony abnormality. Impression: No acute abnormality. Signed: Darinel Young Verified Date/Time: 05/13/2022 22:44:36 /FREE T4 IF [id number] 22:35:07* Test Item Value Reference Range Interpretation Comme nts THYROID STIMULATING HORMONE (BEAKER) (test code = 772) 0.262 uIU/mL 0.350-4.940 L Talent Buyer ID - PIAYA [id number] 22:16:07* Test Item Value Reference Range Interpretation Comme nts LIPASE (BEAKER) (test code = 749) < U/L 8-78 L Talent Buyer ID - PIAIDEN [id number] 22:12:50* Test Item Value Reference Range Interpretation Comme nts PHOSPHORUS (BEAKER) (test co de = 604) 3.4 mg/dL 2.3-4.7 Talent Buyer ID - PIAYA LCOMPREHENSIVE METABOLIC [id number] 22:12:49* Test Item Value Reference Range Interpretation Comme nts TOTAL PROTEIN (BEAKER) (test code = 770) 4.8 gm/dL 6.0-8.3 L ALBUMIN (BEAKER) (test code = 1145) 2.9 g/dL 3.5-5.0 L ALKALINE PHOSPHATASE (BEAKER) (test code = 346) 115 U/L 40-150 BILIRUBIN TOTAL (BEAKER) (test code = 377) 0.2 mg/dL 0.2-1.2 SODIUM (BEAKER) (test code = 381) 140 meq/L 136-145 POTASSIUM (BEAKER) (test code = 379) 4.3 meq/L 3.5-5.1 CHLORIDE (BEAKER) (test code = 382) 114 meq/L 98-107 H CO2 (BEAKER) (test code = 355) 12 meq/L 22-29 L BLOOD UREA NITROGEN (BEAKER) (test code = 354) 71 mg/dL 7-21 H CREATININE (BEAKER) (test code = 358) 0.77 mg/dL 0.57-1.25 GLUCOSE RANDOM (BEAKER) (test code = 652) 157 mg/dL 70-105 H CALCIUM (BEAKER) (test code = 697) 8.2 mg/dL 8.4-10.2 L AST (SGOT) (BEAKER) (test code = 353) 19 U/L 5-34 ALT (SGPT) (BEAKER) (test code = 347) 23 U/L 6-55 EGFR (BEAKER) (test code = 1092) 107 mL/min/1.73 sq m Interpretation of eG FR values Stage Description Result G1 Normal or high >=90 G2 Mildly decreased 60-89 G3a Mildly to moderately 45-59 G3b Moderately to severely 30-44 G4 Severly decreased 15-29 G5 Kidney failure <15Reported eGFR is based on the CKD-EPI 2020 equation that does not use a race coefficientEstimated GFR is not as accurate as Creatinine Clearance in predicting glomerular filtration rate. Estimated GFR is not applicable for dialysis patients Talent Buyer DIXIE PARKER [id number] 22:12:49* Test Item Value Reference Range Interpretation Comme nts MAGNESIUM (BEAKER) (test cod e = 627) 1.7 mg/dL 1.6-2.6 Talent Buyer DIXIE PARKER LLACTIC ACID, [id number] 22:06:26* Test Item Value Reference Range Interpretation Comme nts LACTATE BLOOD VENOUS (2) (BE RAUL) (test code = 2872) 1.56 mmol/L 0.50-2.20 Talent Buyer DIXIE PARKER [id number] 22:06:26* Test Item Value Reference Range Interpretation Comme nts PARTIAL THROMBOPLASTIN TIME (BEAKER) (test code = 760) 33.5 seconds 22.5-36.0 [id number] 22:06:25* Test Item Value Reference Range Interpretation Comme nts FIBRINOGEN LEVEL (BEAKER) (t est code = 658) 196 mg/dl 225-434 L PROTHROMBIN [id number] 22:05:25* Test Item Value Reference Range Interpretation Comme nts PROTIME (BEAKER) (test code = 759) 16.9 seconds 11.9-14.2 H INR (BEAKER) (test code = 370) 1.46 See_Comment [Automated [employer] ge] The system which generated this result transmitted reference range: <=5.90. The reference range was not used to interpret this result as normal/abnormal. RECOMMENDED COUMADIN/WARFARIN INR THERAPY RANGESSTANDARD DOSE: 2.0 - 3.0 Includes: PROPHYLAXIS for venous thrombosis, systemic embolization; TREATMENT for venous thrombosis and/or pulmonary embolus.HIGH RISK: Target INR is 2.5-3.5 for patients with mechanical heart valves.BLOOD GAS, [id number] 21:57:44 * Test Item Value Reference Range Interpretation Comme nts PH ARTERIAL (BEAKER) (test c ode = 383) 7.37 7.35-7.45 PCO2 ARTERIAL (BEAKER) (test code = 384) 22 mm Hg 35-45 L PO2 ARTERIAL (BEAKER) (test code = 385) 168 mm Hg 80-90 H O2 SATURATION ARTERIAL (BEAK ER) (test code = 386) 99.2 % 96.0-97.0 H HCO3 ARTERIAL (BEAKER) (test code = 388) 13 mmol/L 21-29 L BASE EXCESS ARTERIAL (BEAKER ) (test code = 387) -11.7 mmol/L -2.0-3.0 L PATIENT TEMPERATURE (BEAKER) (test code = 1818) 36.5 FIO2 (BEAKER) (test code = 1819) 21.0 CALCIUM, [id number] 21:57:07* Test Item Value Reference Range Interpretation Comme nts CALCIUM IONIZED (BEAKER) (te st code = 698) 1.13 mmol/L 1.12-1.27 PH, BLOOD (BEAKER) (test cod e = 1810) 7.37 CBC W/PLT COUNT & AUTO [id number] 21:54:23* Test Item Value Reference Range Interpretation Comme nts WHITE BLOOD CELL COUNT (BEAK ER) (test code = 775) 21.7 K/ L 3.5-10.5 H RED BLOOD CELL COUNT (BEAKER ) (test code = 761) 2.03 M/ L 4.63-6.08 L HEMOGLOBIN (BEAKER) (test co de = 410) 6.6 GM/DL 13.7-17.5 L HEMATOCRIT (BEAKER) (test co de = 411) 21.1 % 40.1-51.0 L MEAN CORPUSCULAR VOLUME (HANS KER) (test code = 753) 104 fL 79-92 H MEAN CORPUSCULAR HEMOGLOBIN (BEAKER) (test code = 751) 32.5 pg 25.7-32.2 H MEAN CORPUSCULAR HEMOGLOBIN CONC (BEAKER) (test code = 752) 31.3 GM/DL 32.3-36.5 L RED CELL DISTRIBUTION WIDTH (BEAKER) (test code = 412) 16.0 % 11.6-14.4 H PLATELET COUNT (BEAKER) (pito t code = 756) 356 K/CU MM 150-450 MEAN PLATELET VOLUME (BEAKER ) (test code = 754) 10.2 fL 9.4-12.4 NUCLEATED RED BLOOD CELLS (BEAKER) (test code = 413) 0 /100 WBC 0-0 NEUTROPHILS RELATIVE PERCENT (BEAKER) (test code = 429) 78 % LYMPHOCYTES RELATIVE PERCENT (BEAKER) (test code = 430) 16 % MONOCYTES RELATIVE PERCENT (BEAKER) (test code = 431) 5 % EOSINOPHILS RELATIVE PERCENT (BEAKER) (test code = 432) 0 % BASOPHILS RELATIVE PERCENT (BEAKER) (test code = 437) 0 % NEUTROPHILS ABSOLUTE COUNT (BEAKER) (test code = 670) 16.98 K/ L 1.78-5.38 H LYMPHOCYTES ABSOLUTE COUNT (BEAKER) (test code = 414) 3.42 K/ L 1.32-3.57 MONOCYTES ABSOLUTE COUNT (BE RAUL) (test code = 415) 1.16 K/ L 0.30-0.82 H EOSINOPHILS ABSOLUTE COUNT (BEAKER) (test code = 416) 0.00 K/ L 0.04-0.54 L BASOPHILS ABSOLUTE COUNT (BE RAUL) (test code = 417) 0.03 K/ L 0.01-0.08 IMMATURE GRANULOCYTES-RELATI VE PERCENT (BEAKER) (test code = 2801) 0.60 % 0.00-1.00 [id number] 17:52:25* Test Item Value Reference Range Interpretation Comme nts LIPASE (test code = 2388088808) 22 U/L 0-220 Lab Interpretation (test cod e = 79973-9) [facility] [id number] 17:04:38* Test Item Value Reference Range Interpretation Comments TROPONIN I (test code = 4816078699) 0.012 ng/mL See_Comment [Automated message] The system which generated this result transmitted reference range: <=0.034. The reference range was not used to interpret this result as normal/abnormal. REANNA (test code = REANNA) Reference (Normal) Range (defined by the 99th percentile reference [...] to patient's use of biotin. Lab Interpretation (test code = 95996-1) [facility]OLIC PAN[facility] (63019)2022-03-14 16:52:58* Test Item Value Reference Range Interpretation Comme nts NA (test code = 9403428621) 137 mmol/L 135-145 K (test code = 4803366157) 4.9 mmol/L 3.5-5.0 CL (test code = 5333565243) 105 mmol/L 98-108 CO2 TOTAL (test code = 0465667298) 12 mmol/L 23-31 L AGAP (test code = 4453304791) 2-16 H BUN (test code = 7568909303) 4 mg/dL 7-23 L GLUCOSE (test code = 3211190872) 106 mg/dL 70-110 CREATININE (test code = 7901335658) 0.63 mg/dL 0.60-1.25 TOTAL BILI (test code = 4288725742) 0.6 mg/dL 0.1-1.1 CALCIUM (test code = 5547010215) 9.8 mg/dL 8.6-10.6 T PROTEIN (test code = 5065218200) 6.9 g/dL 6.3-8.2 ALBUMIN (test code = 2584980955) 4.7 g/dL 3.5-5.0 ALK PHOS (test code = 4736737071) 114 U/L 34-122 ALTv (test code = 1742-6) 23 U/L 5-50 AST(SGOT) (test code = 0874269578) 37 U/L 13-40 eGFR (test code = 6149145861) mL/min/1.73m2 REANNA (test code = REANNA) Association of [...] or abnormalities in imaging tests). Lab Interpretation (test code = 04753-0) [facility] / [id number] 16:50:34* Test Item Value Reference Range Interpretation Comme nts PROTIME PATIENT (test code = 5964-2) See_Comment [Automated messa ge] The system which generated this result transmitted reference range: 12.0 - 14.7 Seconds. The reference range was not used to interpret this result as normal/abnormal. INR (test code = 6301-6) Normal INR <1.1; Warfarin Therapeutic range 2.0 to 3.0 or 2.5 to 3.5, depending upon the indications. Lab Interpretation (test code = 86026-6) [facility] [id number] 16:32:56* Test Item Value Reference Range Interpretation Comme nts WBC (test code = 6690-2) See_Comment H [Automated messa ge] The system which generated this result transmitted reference range: 4.20 - 10.70 10*3/?L. The reference range was not used to interpret this result as normal/abnormal. RBC (test code = 789-8) See_Comment [Automated messa ge] The system which generated this result transmitted reference range: 4.26 - 5.52 10*6/?L. The reference range was not used to interpret this result as normal/abnormal. HGB (test code = 718-7) 14.0 g/dL 12.2-16.4 HCT (test code = 4544-3) 42.8 % 38.4-49.3 MCV (test code = 787-2) 99.5 fL 81.7-95.6 H MCH (test code = 785-6) 32.6 pg 26.1-32.7 MCHC (test code = 786-4) 32.7 g/dL 31.2-35.0 RDW-SD (test code = 43373-1) 62.2 fL 38.5-51.6 H RDW-CV (test code = 788-0) 16.8 % 12.1-15.4 H PLT (test code = 777-3) See_Comment [Automated messa ge] The system which generated this result transmitted reference range: 150 - 328 10*3/?L. The reference range was not used to interpret this result as normal/abnormal. MPV (test code = 00980-3) 10.0 fL 9.8-13.0 NRBC/100 WBC (test code = 8953689458) See_Comment [Automated me ssage] The system which generated this result transmitted reference range: 0.0 - 10.0 /100 WBCs. The reference range was not used to interpret this result as normal/abnormal. NRBC x10^3 (test code = 5779191305) See_Comment [Automated messa ge] The system which generated this result transmitted reference range: 10*3/?L. The reference range was not used to interpret this result as normal/abnormal. GRAN MAT (NEUT) % (test code = 770-8) 73.8 % IMM GRAN % (test code = 8551641942) 0.30 % LYMPH % (test code = 736-9) 18.6 % MONO % (test code = 5905-5) 6.5 % EOS % (test code = 713-8) 0.3 % BASO % (test code = 706-2) 0.5 % GRAN MAT x10^3(ANC) (test code = 2672967889) 9.63 10*3/uL 1.99-6.95 H IMM GRAN x10^3 (test code = 4209611690) 0.04 10*3/uL 0.00-0.06 LYMPH x10^3 (test code = 731-0) 2.43 10*3/uL 1.09-3.23 MONO x10^3 (test code = 742-7) 0.85 10*3/uL 0.36-1.02 EOS x10^3 (test code = 711-2) 0.04 10*3/uL 0.06-0.53 L BASO x10^3 (test code = 704-7) 0.06 10*3/uL 0.01-0.09 Lab Interpretation (test code = 80825-8) [facility]IPASE2022-[facility] 22:47:58* Test Item Value Reference Range Interpretation Comme nts LIPASE (test code = 4538617767) 51 U/L 0-220 Lab Interpretation (test cod e = 83701-0) [facility] WITH [id number] 22:32:40* Test Item Value Reference Range Interpretation Comme nts WBC (test code = 6690-2) See_Comment H [Automated message] The system which generated this result transmitted reference range: 4.20 - 10.70 10*3/?L. The reference range was not used to interpret this result as normal/abnormal. RBC (test code = 789-8) See_Comment [Automated message] The system which generated this result transmitted reference range: 4.26 - 5.52 10*6/?L. The reference range was not used to interpret this result as normal/abnormal. HGB (test code = 718-7) 15.7 g/dL 12.2-16.4 HCT (test code = 4544-3) 47.1 % 38.4-49.3 MCV (test code = 787-2) 91.6 fL 81.7-95.6 MCH (test code = 785-6) 30.5 pg 26.1-32.7 MCHC (test code = 786-4) 33.3 g/dL 31.2-35 RDW-SD (test code = 84830-1) 55.8 fL 38.5-51.6 H RDW-CV (test code = 788-0) 16.6 % 12.1-15.4 H PLT (test code = 777-3) See_Comment [Automated message] The system which generated this result transmitted reference range: 150 - 328 10*3/?L. The reference range was not used to interpret this result as normal/abnormal. MPV (test code = 86296-0) 9.0 fL 9.8-13 L NRBC/100 WBC (test code = 1060117144) See_Comment [Automated message] The system which generated this result transmitted reference range: 0.0 - 10.0 /100 WBCs. The reference range was not used to interpret this result as normal/abnormal. NRBC x10^3 (test code = 6117947159) See_Comment [Automated message] The system which generated this result transmitted reference range: 10*3/?L. The reference range was not used to interpret this result as normal/abnormal. GRAN MAT (NEUT) % (test code = 770-8) 73.6 % IMM GRAN % (test code = 5976576955) 0.70 % LYMPH % (test code = 736-9) 19.2 % MONO % (test code = 5905-5) 6.0 % EOS % (test code = 713-8) 0.2 % BASO % (test code = 706-2) 0.3 % GRAN MAT x10^3(ANC) (test code = 3091855511) 10.00 10*3/uL 1.99-6.95 H IMM GRAN x10^3 (test code = 8042047995) 0.09 10*3/uL 0-0.06 H LYMPH x10^3 (test code = 731-0) 2.61 10*3/uL 1.09-3.23 MONO x10^3 (test code = 742-7) 0.82 10*3/uL 0.36-1.02 EOS x10^3 (test code = 711-2) 0.03 10*3/uL 0.06-0.53 L BASO x10^3 (test code = 704-7) 0.04 10*3/uL 0.01-0.09 Lab Interpretation (test code = 58462-2) [facility] L[facility] 3 [id number] 12:58:411. Mild multilevel degenerative disc disease.2. Moderate facet arthropathy at L4-5 and L5-S1 RL: 3901 AFC: [id number] End of report ORDERING PHYSICIAN: JENNI TAI TECHNIQUE: Lumbar spine 3 views HISTORY: Back pain COMPARISON: None FINDINGS:There are 5 lumbar vertebra. The alignment of the lumbar spine is normal. There is mild multilevel degenerative disc disease. There is moderate facet arthropathy at L4-5 and L5- S1. The vertebral body heights are well preserved. [facility], Radiant Results Inft User - 05/13/2019 6:59 AM CSTORDERING PHYSICIAN: SHAINA ABURTOMATECHNIQUE: Lumbar spine 3 viewsHISTORY: Back painCOMPARISON: NoneFINDINGS:Thereare 5 lumbar vertebra.The alignment of the lumbar spine is normal.There is mild multilevel degenerative disc disease.There is moderate facet arthropathy at L4-5 and L5- S1.The vertebral body heights are well preserved.IMPRESSION1. Mild multilevel degenerative disc disease.2. Moderate facet arthropathy at L4-5 and L5-S1RL: 3901AFC: [id number] of report [facility] Notes Date/Time Note Provider Source 2025-01-06 05:48:01 MEDICINE [facility] ADMIT H&P Date of Service: 01/06/2025 CHIEF COMPLAINT: abdominal pain Subjective History of Present Illness A 54-year-old male with a history of chronic obstructive pulmonary disease (COPD), chronic pancreatitis, gastric varices, fatty liver disease, and nephrolithiasis presented with four days of nausea, vomiting, watery diarrhea, and severe non-radiating right upper quadrant/epigastric abdominal pain, along with subjective fever. He reports smoking one pack per day during the week and up to six packs per day on weekends. Review of systems is notable for a nonproductive cough and non-radiating chest pain. PAST MEDICAL HISTORY COPD Chronic pancreatitis Gastric varices Fatty liver Nephrolithiasis Past Surgical History Cholecystecomy Back surgery Right leg surgery Past Family History Noncontributory ALLERGIES No Known Allergies MEDICATIONS No current facility-administered medications on file prior to encounter. Current Outpatient Medications on File Prior to Encounter Medication Sig Dispense Refill dicyclomine 20 mg tablet Take 1 tablet by mouth 4 (four) times daily. 20 tablet 0 ondansetron 4 mg disintegrating tablet Take 1 tablet by mouth every 4 (four) hours as needed for Nausea and Vomiting (N/V). 20 tablet 0 pantoprazole 40 mg EC tablet Take 1 tablet by mouth in the morning. 30 tablet 0 furosemide (LASIX) 20 mg tablet Take 1 tablet by mouth in the morning. acetaminophen-codeine (TYLENOL-CODEINE #3) 300-30 mg tablet Take 1 Tab by mouth every 4 (four) hours as needed for Pain (scale 7-10). 12 Tab 0 I attest that the foregoing medication list in the medical record is true, accurate and complete to the best of my knowledge. SOCIAL HISTORY Social History Socioeconomic History Marital status: Single Tobacco Use Smoking status: Every Day Current packs/day: 2.00 Types: Cigarettes Passive exposure: Current Social Drivers of Health Food Insecurity: No Food Insecurity (05/20/2024) NCSS - Food Insecurity Worried About Running Out of Food in the Last Year: No Ran Out of Food in the Last Year: No Transportation Needs: No Transportation Needs (05/20/2024) NCSS - Transportation Lack of Transportation: No Housing Stability: Not At Risk (05/20/2024) NCSS - Housing/Utilities Has Housing: Yes Worried About Losing Housing: No Unable to Get Utilities: No REVIEW OF SYSTEMS Review of Systems Constitutional: Positive for fever. Negative for activity change, appetite change, chills, diaphoresis, fatigue and unexpected weight change. HENT: Negative. Eyes: Negative. Respiratory: Positive for cough (nonproductive). Negative for apnea, choking, chest tightness, shortness of breath, wheezing and stridor. Breasts: Negative. Cardiovascular: Positive for chest pain. Negative for palpitations and leg swelling. Gastrointestinal: Positive for abdominal pain, diarrhea, nausea and vomiting. Negative for abdominal distention, anal bleeding, blood in stool, constipation and rectal pain. Genitourinary: Negative. Musculoskeletal: Negative. Skin: Negative. Neurological: Negative. Psychiatric/Behavioral: Negative. Endocrine: Endocrine negative Objective PHYSICAL EXAMINATION Vitals: 01/06/25 0219 BP: (!) 148/91 Pulse: 97 Resp: 24 Temp: 36.8 ?C (98.2 ?F) TempSrc: Oral SpO2: 98% Weight: 63.5 kg (140 lb) Height: 1.753 m (5' 9") Physical Exam Vitals and nursing note reviewed. Constitutional: General: He is not in acute distress. Appearance: Normal appearance. He is not ill-appearing, toxic-appearing or diaphoretic. HENT: Head: Normocephalic and atraumatic. Right Ear: External ear normal. Left Ear: External ear normal. Nose: Nose normal. No congestion or rhinorrhea. Mouth/Throat: Mouth: Mucous membranes are moist. Pharynx: No oropharyngeal exudate or posterior oropharyngeal erythema. Eyes: General: No scleral icterus. Extraocular Movements: Extraocular movements intact. Conjunctiva/sclera: Conjunctivae normal. Pupils: Pupils are equal, round, and reactive to light. Cardiovascular: Rate and Rhythm: Normal rate and regular rhythm. Heart sounds: No murmur heard. No friction rub. No gallop. Pulmonary: Effort: Pulmonary effort is normal. No respiratory distress. Breath sounds: Normal breath sounds. No wheezing or rales. Chest: Chest wall: No tenderness. Abdominal: General: Abdomen is flat. Bowel sounds are normal. There is no distension. Palpations: Abdomen is soft. Tenderness: There is abdominal tenderness. There is no guarding. Musculoskeletal: General: Normal range of motion. Cervical back: Normal range of motion and neck supple. Right lower leg: No edema. Left lower leg: No edema. Skin: General: Skin is warm and dry. Neurological: Mental Status: He is alert. Psychiatric: Mood and Affect: Mood normal. Behavior: Behavior normal. Thought Content: Thought content normal. Judgment: Judgment normal. LABS/IMAGING - reviewed ORDERING PHYSICIAN: SHAINA TAI CLINICAL HISTORY: Abdominal pain COMPARISON: None available. TECHNIQUE: Helical CT images of the abdomen and pelvis obtained with IV contrast. CT scan performed according to ALARA (As low as reasonably achievable) principles. FINDINGS: Heart size is normal. Liver is severely fatty infiltrated. Patient status post cholecystectomy. The pancreas contains calcifications and ductal ectasia. There is no surrounding inflammatory change. The spleen and adrenals are unremarkable. Bladder is distended. No bladder wall thickening. There is fullness of the renal collecting systems bilaterally, possibly related to the distended bladder and reflux. There are small nonobstructive stones in both kidneys, measuring up to 3 mm. There is a 1 cm cyst in the upper pole of the right kidney. There is no evidence for appendicitis. Bones are unremarkable. 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 Upper abdominal varices are stable. IMPRESSION Severe fatty infiltration of the liver Distended bladder. Fullness of the bilateral renal collecting systems, possibly secondary to the distended bladder and reflux. Bilateral nonobstructive renal stones Normal appendix Pancreatic atrophy with calcifications and ductal ectasia, consistent with the sequela of chronic pancreatitis. Assessment & Plan Jim Porras is a 54 year old male with PMH as listed above, admitted to the hospital with: Acute on chronic pancreatitis: -- NPO -- IV fluid hydration -- Nausea/pain control 2. Hyponatremia: -- Will repeat sodium level after fluid hydration -- Serum osmolality is pending COPD: stable -- Duoneb as needed 3. GERD: -- On pantoprazole Prophylaxis: DVT- enoxaparin Code Status: Full Code INPT: Anticipate greater than 2 midnight stays due to intensive nursing care, frequent monitoring, and ongoing/complex intervention due to the treatment of acute on chronic pancreatitis. [facility] 2024-05-19 23:45:28 [facility] Hospitalist Admission H&P Date of Service: 05/19/2024 CHIEF COMPLAINT: Patient presents with abdominal pain including intractable nausea and vomiting and diarrhea along with shortness of breath and low back pain HISTORY OF PRESENT ILLNESS Jim Porras is a 54 year old male who presents with abdominal pain along with intractable nausea and vomiting and diarrhea. Patient has also been having coughing and congestion as well as significant low back pain. Patient came to the ER for further evaluation. In the ER patient had labs which revealed patient was thrombocytopenic and hypokalemic. Patient also with mild hyperglycemia. Patient has a history of tobacco use but has never been diagnosed with emphysema. Patient had CT imaging which revealed a pulmonary nodule with a scattered tree-in-bud pattern which was concerning for an interstitial pneumonia. Patient also had a L1 compression fracture age unknown. Imaging studies also revealed splenomegaly as well as nephrolithiasis. At this time, patient will be admitted to the hospital. He does look like he is having a COPD flareup from this infectious process. He will continue with antibiotic therapy as well as nebs, steroids, and pain control. Patient will be admitted for inpatient hospitalization. PAST MEDICAL HISTORY Hypertension PAST SURGICAL HISTORY No past surgical history on file. ALLERGIES No Known Allergies MEDICATIONS Current home medication list reviewed: Current Discharge Medication List STOP taking these medications furosemide (LASIX) 20 mg tablet Comments: Reason for Stopping: HYDROcodone-acetaminophen 7.5-325 mg per tablet Comments: Reason for Stopping: loperamide (IMODIUM A-D) 2 mg capsule Comments: Reason for Stopping: ondansetron 4 mg disintegrating tablet Comments: Reason for Stopping: acetaminophen-codeine (TYLENOL-CODEINE #3) 300-30 mg tablet Comments: Reason for Stopping: FAMILY HISTORY No family history on file. SOCIAL HISTORY Social History Socioeconomic History Marital status: Single Tobacco Use Smoking status: Every Day Current packs/day: 2.00 Types: Cigarettes Passive exposure: Current REVIEW OF SYSTEMS 10 systems negative except per HPI PHYSICAL EXAMINATION BP (!) 140/87 | Pulse 70 | Temp 36.4 ?C (97.5 ?F) | Resp 18 | Ht 1.753 m (5' 9") | Wt 63.5 kg (139 lb 14.4 oz) | SpO2 99% | BMI 20.66 kg/m? General: No acute distress HEENT: Normal oral mucosa, anicteric sclerae, NCAT Cardiovascular: RRR Lungs: End expiratory wheezing Abdomen: Soft, NTND Musculoskeletal: Back pain in the lumbar region Genitourinary: Deferred Skin: No rash, no skin lesions Extremities: No clubbing, no cyanosis, no lower extremity edema Neuro: AAOx3, no focal deficits Psych: Normal affect LABS - reviewed pertinent labs as below: CBC BMP PT/INR WBC x10 3 (/CMM) Date Value 11/06/2009 5.9 WBC (10*3/?L) Date Value 05/19/2024 5.53 NA Date Value 05/19/2024 134 mmol/L (L) 11/06/2009 141 MMOL/L No results found for: "PT" RBC x10 6 (/CMM) Date Value 11/06/2009 4.59 RBC (10*6/?L) Date Value 05/19/2024 4.27 K Date Value 05/19/2024 2.4 mmol/L (LL) 11/06/2009 4.0 MMOL/L PT INR (no units) Date Value 11/06/2009 0.9 INR (no units) Date Value 12/04/2023 0.9 PLT x10 3 (/CMM) Date Value 11/06/2009 191 PLT (10*3/?L) Date Value 05/19/2024 85 (L) CALCIUM Date Value 05/19/2024 8.4 mg/dL (L) 11/06/2009 9.1 MG/DL HGB Date Value 05/19/2024 14.6 g/dL 11/06/2009 15.2 G/DL CL Date Value 05/19/2024 96 mmol/L (L) 11/06/2009 107 MMOL/L aPTT HCT (%) Date Value 05/19/2024 41.3 11/06/2009 41.4 BUN Date Value 05/19/2024 7 mg/dL 11/06/2009 10 MG/DL APTT (SEC) Date Value 11/06/2009 24 APTT Patient (Seconds) Date Value 12/04/2023 30 CREATININE Date Value 05/19/2024 0.54 mg/dL (L) 11/06/2009 0.93 MG/DL IMAGING - reviewed, pertinent results as below: Hospital Encounter on 05/19/24 CT Abdomen pelvis wo contrast Narrative EXAM: CT ABDOMEN PELVIS WO CONTRAST HISTORY: 54 years-old Male; Abdominal pain, acute, nonlocalized . TECHNIQUE: Contiguous axial imaging from the level of the lung bases through the proximal thighs was performed without the intravenous administration of contrast. Coronal and sagittal reconstructions were obtained. COMPARISON: CT abdomen dated 09/30/[address] chest dated 05/18/2024 FINDINGS: LOWER THORAX: Scattered tree-in-bud opacities in the bilateral lung bases, right worse than left, may represent aspiration or developing infection. A calcified granuloma is again seen in the right lower lobe. LIVER: The liver appears enlarged secondary to a Massimo lobe. No suspicious hepatic lesion is seen within the limits of a non contrast examination. Areas of focal steatosis are noted adjacent to the gallbladder fossa. GALLBLADDER AND BILIARY TREE: Postsurgical changes of cholecystectomy are seen. No biliary ductal dilation is visualized. SPLEEN: The spleen is mildly enlarged and measures approximately 13.7 cm. PANCREAS: Sequelae of chronic pancreatitis are again noted with marked parenchymal atrophy and calcification. ADRENAL GLANDS: No mass is seen. KIDNEYS: Normal size and appearance. A 1.3 cm renal cortical cyst is again seen in the right superior pole. Multiple nonobstructing stones are seen in the bilateral kidneys measuring up to 5 mm on the right and 4 mm on the left. No hydronephrosis is visualized. PELVIS/BLADDER: The bladder is unremarkable. No suspicious pelvic mass is seen. GI TRACT: No obstruction is seen. The appendix appears unremarkable. Gastric embolization material is again noted. Radiopaque material partially opacifies the esophageal lumen and enters the stomach. PERITONEUM AND RETROPERITONEUM: No intra-abdominal free air or fluid collection is visualized. LYMPH NODES: No suspicious lymphadenopathy is seen. VESSELS: Mild atherosclerotic calcification of the abdominal aorta and iliac branches is seen. BONES AND SOFT TISSUES: No suspicious osseous lesion is seen. Age-indeterminant compression deformity with 50% height loss at L1 is again seen. A small, fat-containing periumbilical hernia is present. Impression 1. Multiple bilateral nonobstructing nephrolithiasis measuring up to 5 mm on the right and 4 mm on the left. No hydronephrosis is visualized. 2. Scattered tree-in-bud opacities in the lung bases may represent aspiration or developing infection. 3. Redemonstration of age-indeterminant L1 compression deformity. 4. Mild splenomegaly. Preliminary Report Dictated by Resident: Alden Blackmon I, Ryan Hunter MD., have reviewed this study and agree with the above report. ASSESSMENT: 1. Patient with acute COPD exacerbation 2. Intractable nausea and vomiting and diarrhea from viral gastroenteritis 3. L1 compression fracture; age unknown 4. Thrombocytopenia 5. Hypokalemia 6. Nephrolithiasis 7. Pulmonary nodule PLAN: 1. Patient with acute COPD exacerbation with a pulmonary nodule; patient with a history of tobacco use; continue with nebs, steroids, and antibiotics. Patient will need to follow-up with pulmonary as an outpatient. Will monitor labs closely. 2. Intractable nausea vomiting and diarrhea; most likely related to viral gastroenteritis; nausea vomiting has improved. Continue with antiemetics and antidiarrheal medication. 3. L1 compression fracture; age unknown; patient still having a lot of pain. Continue with pain control 4. Hypokalemia; potassium supplementation 5. Thrombocytopenia; patient also with splenomegaly. May have cirrhosis. His labs do not really indicate this. Will need further imaging as an outpatient. He needs to follow-up with hematology as an outpatient 6. Pulmonary nodule; pulmonary follow-up as an outpatient for this as well as a COPD aching his CT imaging and 12 to 24 weeks. DVT prophylaxis: enoxaparin Stress ulcer prophylaxis: pantoprazole Code status: FULL Advanced Care Planning (Z71.89) Above assessment and plan discussed at length with patient, patient expressed full understanding. Questions and concerned addressed. Surrogate decision maker: NO Level of care expected after discharge: HOME Time spent: 3 minutes discussing the advanced care plan Smoking Cessation: (Z71.6) Tobacco user?: NO Patient will require inpatient stay of 2 midnights or more given high risk of morbidity and mortality. [place] [employer] COORD[employer]ATOR was verified during stay Nathalia Sims MD [facility] Notes Date/Time Note Provider Source 2025-01-09 11:45:43 Problem: Pain Goal: Control of pain at or below patient's documented comfort goal Outcome: Adequate for discharge Goal: Reduction in pain sensation Outcome: Adequate for discharge Problem: Discharge Planning Goal: Adequate for discharge Outcome: Adequate for discharge Goal: Effective communication Outcome: Adequate for discharge Problem: Falls, Risk of Goal: Absence of falls Outcome: Adequate for discharge Problem: Venous Thromboembolism, (actual or risk of) Goal: Absence of venous thromboembolism (Risk) Outcome: Adequate for discharge Tiffany Velasquez RN [facility] 2025-01-09 04:23:23 Problem: Pain Goal: Control of pain at or below patient's documented comfort goal Outcome: Progressing as expected Goal: Reduction in pain sensation Outcome: Progressing as expected Problem: Discharge Planning Goal: Adequate for discharge Outcome: Progressing as expected Goal: Effective communication Outcome: Progressing as expected Problem: Falls, Risk of Goal: Absence of falls Outcome: Progressing as expected Problem: Venous Thromboembolism, (actual or risk of) Goal: Absence of venous thromboembolism (Risk) Outcome: Progressing as expected Sejal Alfaro RN [facility] 2025-01-08 15:03:11 Problem: Pain Goal: Control of pain at or below patient's documented comfort goal Outcome: Progressing as expected Goal: Reduction in pain sensation Outcome: Progressing as expected Problem: Discharge Planning Goal: Adequate for discharge Outcome: Progressing as expected Goal: Effective communication Outcome: Progressing as expected Problem: Falls, Risk of Goal: Absence of falls Outcome: Progressing as expected Problem: Venous Thromboembolism, (actual or risk of) Goal: Absence of venous thromboembolism (Risk) Outcome: Progressing as expected [facility] 2025-01-07 20:35:25 Problem: Pain Goal: Control of pain at or below patient's documented comfort goal Outcome: Progressing as expected Goal: Reduction in pain sensation Outcome: Progressing as expected Problem: Discharge Planning Goal: Adequate for discharge Outcome: Progressing as expected Goal: Effective communication Outcome: Progressing as expected Problem: Falls, Risk of Goal: Absence of falls Outcome: Progressing as expected Problem: Venous Thromboembolism, (actual or risk of) Goal: Absence of venous thromboembolism (Risk) Outcome: Progressing as expected Armando Keita RN [facility] 2025-01-07 09:37:18 Problem: Pain Goal: Control of pain at or below patient's documented comfort goal Outcome: Progressing as expected Goal: Reduction in pain sensation Outcome: Progressing as expected Problem: Discharge Planning Goal: Adequate for discharge Outcome: Progressing as expected Goal: Effective communication Outcome: Progressing as expected Problem: Falls, Risk of Goal: Absence of falls Outcome: Progressing as expected Problem: Venous Thromboembolism, (actual or risk of) Goal: Absence of venous thromboembolism (Risk) Outcome: Progressing as expected T [facility] 2025-01-07 04:30:37 Problem: Pain Goal: Control of pain at or below patient's documented comfort goal Outcome: Progressing as expected Goal: Reduction in pain sensation Outcome: Progressing as expected Problem: Discharge Planning Goal: Adequate for discharge Outcome: Progressing as expected Goal: Effective communication Outcome: Progressing as expected Problem: Falls, Risk of Goal: Absence of falls Outcome: Progressing as expected Problem: Venous Thromboembolism, (actual or risk of) Goal: Absence of venous thromboembolism (Risk) Outcome: Progressing as expected Jessica Jimenez RN [facility] 2025-01-06 13:40:32 Problem: Pain Goal: Control of pain at or below patient's documented comfort goal 01/06/2025 1340 by Patti Melton RN Outcome: Progressing as expected 01/06/2025 0744 by Patti Melton RN Outcome: Progressing as expected Goal: Reduction in pain sensation 01/06/2025 1340 by Patti Melton RN Outcome: Progressing as expected 01/06/2025 0744 by Patti Melton RN Outcome: Progressing as expected Problem: Discharge Planning Goal: Adequate for discharge 01/06/2025 1340 by Patti Melton RN Outcome: Progressing as expected 01/06/2025 0744 by Patti Melton RN Outcome: Progressing as expected Goal: Effective communication 01/06/2025 1340 by Patti Melton RN Outcome: Progressing as expected 01/06/2025 0744 by Patti Melton RN Outcome: Progressing as expected Problem: Falls, Risk of Goal: Absence of falls 01/06/2025 1340 by Patti Melton RN Outcome: Progressing as expected 01/06/2025 0744 by Patti Melton RN Outcome: Progressing as expected Problem: Venous Thromboembolism, (actual or risk of) Goal: Absence of venous thromboembolism (Risk) 01/06/2025 1340 by Patti Melton RN Outcome: Progressing as expected 01/06/2025 0744 by Patti Melton RN Outcome: Progressing as expected [facility] 2025-01-06 07:44:26 Problem: Pain Goal: Control of pain at or below patient's documented comfort goal Outcome: Progressing as expected Goal: Reduction in pain sensation Outcome: Progressing as expected Problem: Discharge Planning Goal: Adequate for discharge Outcome: Progressing as expected Goal: Effective communication Outcome: Progressing as expected Problem: Falls, Risk of Goal: Absence of falls Outcome: Progressing as expected Problem: Venous Thromboembolism, (actual or risk of) Goal: Absence of venous thromboembolism (Risk) Outcome: Progressing as expected [facility] 2025-01-06 06:55:08 Report to Ada RN Chong Schmitt RN [facility] 2025-01-06 02:17:50 C/o nausea, vomiting, diarrhea for 4 days, unable to hold anything down, 6/10 abdominal pain Frances Wylie RN [facility] 2025-01-06 02:09:00 [facility] Emergency Department Note Patient Name: Jim Porras Date of : 1970 54 year old male Treatment Room: CO7 Primary Care Physician: Lexx Thompson Patient Escorted by: Family [5] Mode of Arrival: Personal means [1] EMS Treatment Prior to ED Arrival: CORRESPONDENCE SPECIALIST treatment: Medication (comment) CORRESPONDENCE SPECIALIST treatment comments: tylenol pm 0100 Travel and Exposure Screening: Symptoms Does patient have any of these symptoms?: (not recorded) Exposure Screening Has patient had contact with someone with a communicable disease in the last month?: (not recorded) Diseases exposed to:: (not recorded) Is Patient ?: (not recorded) Exposure Date: (not recorded) Chief Complaint: Chief Complaint Patient presents with Abdominal Pain History of Present Illness: History of Present Illness Jim Porras is a 54 year old male who presents to the ED with RUQ pain that began 3 days ago. Pain is localized to RUQ without radiation and is associated with N/V. Pt took Tylenol PM without relief. Vomitus consists of digested food materials. Pt also has diarrhea. Also reports subjective fever. No sick contacts. No travel hx. No abx use. Pain is currently rated as 7/10. Denies any URI symptoms. Drinks ETOH on occasions History provided by: Patient and medical records dinkey brakeman used: No Abdominal Pain Pain location: RUQ Pain quality: sharp Pain radiates to: Does not radiate Pain severity: Severe Onset quality: Gradual Duration: 3 days Timing: Constant Progression: Worsening Chronicity: Recurrent Context: alcohol use and awakening from sleep Context: not diet changes, not eating, not laxative use, not medication withdrawal, not previous surgeries, not recent illness, not recent travel, not retching, not sick contacts, not suspicious food intake and not trauma Relieved by: None tried Worsened by: Nothing Ineffective treatments: None tried Associated symptoms: anorexia, nausea and vomiting Associated symptoms: no constipation, no diarrhea, no fever, no hematemesis, no hematochezia, no hematuria, no melena and no shortness of breath Risk factors: no aspirin use, not elderly, has not had multiple surgeries, no NSAID use, not obese and no recent hospitalization Past Medical History/Immunizations: HTN Tetanus received in last 5 years: Unknown Allergies: No Known Allergies Past Social History: Tobacco Use Every Day; 2.0 packs/day; Types: Cigarettes Passive Exposure: Current Past Surgical History: Cholecystectomy Review of Systems: Review of Systems Constitutional: Negative. Negative for fever. HENT: Negative. Eyes: Negative. Respiratory: Negative. Negative for shortness of breath. Breasts: Negative. Cardiovascular: Negative. Gastrointestinal: Positive for abdominal pain, anorexia, nausea and vomiting. Negative for abdominal distention, anal bleeding, blood in stool, constipation, diarrhea, hematemesis, hematochezia, melena and rectal pain. Genitourinary: Negative. Negative for hematuria. Musculoskeletal: Negative. Skin: Negative. Neurological: Negative. Psychiatric/Behavioral: Negative. All other systems reviewed and are negative. Endocrine: Endocrine negative Physical Exam: Physical Exam ED Triage Vitals [01/06/25 0219] Weight 63.5 kg (140 lb) Actual or estimated Estimated by patient/family report Height 1.753 m (5' 9") BP (!) 148/91 Pulse 97 Resp 24 Temp 36.8 ?C (98.2 ?F) Temp source Oral SpO2 98 % Measured on Room air Physical Exam Vitals and nursing note reviewed. Constitutional: General: He is not in acute distress. Appearance: Normal appearance. He is well-developed and normal weight. He is not ill-appearing, toxic-appearing or diaphoretic. HENT: Head: Normocephalic and atraumatic. Right Ear: Tympanic membrane, ear canal and external ear normal. Left Ear: Tympanic membrane, ear canal and external ear normal. Nose: Nose normal. No congestion or rhinorrhea. Mouth/Throat: Mouth: Mucous membranes are moist. Pharynx: Oropharynx is clear. Eyes: General: No scleral icterus. Right eye: No discharge. Left eye: No discharge. Extraocular Movements: Extraocular movements intact. Conjunctiva/sclera: Conjunctivae normal. Pupils: Pupils are equal, round, and reactive to light. Cardiovascular: Rate and Rhythm: Normal rate and regular rhythm. Pulses: Normal pulses. Heart sounds: Normal heart sounds. No murmur heard. Pulmonary: Effort: Pulmonary effort is normal. No respiratory distress. Breath sounds: Normal breath sounds. No stridor. No wheezing, rhonchi or rales. Chest: Chest wall: No tenderness. Abdominal: General: Bowel sounds are normal. There is no distension. Palpations: Abdomen is soft. There is no mass. Tenderness: There is no abdominal tenderness. There is no right CVA tenderness, left CVA tenderness, guarding or rebound. Hernia: No hernia is present. Musculoskeletal: General: No swelling or tenderness. Normal range of motion. Cervical back: Normal range of motion and neck supple. No rigidity or tenderness. Lymphadenopathy: Cervical: No cervical adenopathy. Skin: General: Skin is warm and dry. Capillary Refill: Capillary refill takes less than 2 seconds. Coloration: Skin is not jaundiced or pale. Findings: No bruising, erythema, lesion or rash. Neurological: General: No focal deficit present. Mental Status: He is alert and oriented to person, place, and time. Cranial Nerves: No cranial nerve deficit. Sensory: No sensory deficit. Motor: No weakness. Coordination: Coordination normal. Gait: Gait normal. Deep Tendon Reflexes: Reflexes normal. Psychiatric: Mood and Affect: Mood normal. Behavior: Behavior normal. Thought Content: Thought content normal. Judgment: Judgment normal. Radiology: CT Abdomen pelvis w contrast Final Result ORDERING PHYSICIAN: SHAINA TAI CLINICAL HISTORY: Abdominal pain COMPARISON: None available. TECHNIQUE: Helical CT images of the abdomen and pelvis obtained with IV contrast. CT scan performed according to ALARA (As low as reasonably achievable) principles. FINDINGS: Heart size is normal. Liver is severely fatty infiltrated. Patient status post cholecystectomy. The pancreas contains calcifications and ductal ectasia. There is no surrounding inflammatory change. The spleen and adrenals are unremarkable. Bladder is distended. No bladder wall thickening. There is fullness of the renal collecting systems bilaterally, possibly related to the distended bladder and reflux. There are small nonobstructive stones in both kidneys, measuring up to 3 mm. There is a 1 cm cyst in the upper pole of the right kidney. There is no evidence for appendicitis. Bones are unremarkable. 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 Upper abdominal varices are stable. IMPRESSION Severe fatty infiltration of the liver Distended bladder. Fullness of the bilateral renal collecting systems, possibly secondary to the distended bladder and reflux. Bilateral nonobstructive renal stones Normal appendix Pancreatic atrophy with calcifications and ductal ectasia, consistent with the sequela of chronic pancreatitis. No free fluid RL: 5252 Lab Results: Lab Results LIPASE - Abnormal Result Value Ref Range LIPASE 1,391 (*) 0 - 220 U/L CBC WITH DIFF - Abnormal WBC 3.50 (*) 4.20 - 10.70 10*3/?L RBC 4.43 4.26 - 5.52 10*6/?L HGB 14.4 12.2 - 16.4 g/dL HCT 41.6 38.4 - 49.3 % MCV 93.9 81.7 - 95.6 fL MCH 32.5 26.1 - 32.7 pg MCHC 34.6 31.2 - 35.0 g/dL RDW-SD 49.0 38.5 - 51.6 fL RDW-CV 14.3 12.1 - 15.4 % PLT 82 (*) 150 - 328 10*3/?L MPV 11.2 9.8 - 13.0 fL IPF % 4.3 1.2 - 10.7 % NRBC/100 WBC 0.0 0.0 - 10.0 /100 WBCs NRBC x10 3 <0.01 10*3/?L GRAN MAT (NEUT) % 58.5 % IMM GRAN % 0.30 % LYMPH % 30.0 % MONO % 10.3 % EOS % 0.6 % BASO % 0.3 % GRAN MAT x10 3 (ANC) 2.05 1.99 - 6.95 10*3/uL IMM GRAN x10 3 <0.03 0.00 - 0.06 10*3/uL LYMPH x10 3 1.05 (*) 1.09 - 3.23 10*3/uL MONO x10 3 0.36 0.36 - 1.02 10*3/uL EOS x10 3 <0.03 (*) 0.06 - 0.53 10*3/uL BASO x10 3 <0.03 0.01 - 0.09 10*3/uL DIFF COMMENTS Value: No platelet clumps seen on slide; platelet estimate is decreased COMP. METABOLIC PANEL (19302) - Abnormal NA 124 (*) 135 - 145 mmol/L K 4.7 3.5 - 5.0 mmol/L CL 85 (*) 98 - 108 mmol/L CO2 TOTAL 22 (*) 23 - 31 mmol/L AGAP 17 (*) 2 - 16 BUN 6 (*) 7 - 23 mg/dL GLUCOSE 100 70 - 110 mg/dL CREATININE 0.48 (*) 0.60 - 1.25 mg/dL TOTAL BILI 2.1 (*) 0.1 - 1.1 mg/dL CALCIUM 8.8 8.6 - 10.6 mg/dL T PROTEIN 8.1 6.3 - 8.2 g/dL ALBUMIN 5.0 3.5 - 5.0 g/dL ALK PHOS 103 34 - 122 U/L ALTv 150 (*) 5 - 50 U/L AST(SGOT) 252 (*) 13 - 40 U/L eGFR 121.2 mL/min/1.73m2 AMYLASE - Abnormal ELLI 112 (*) 35 - 110 U/L LIPID PANEL (40651)(TOTAL CHOLESTEROL, TRIGLYCERIDES, HDL) - Abnormal CHOL 213 (*) 120 - 200 mg/dL HDL 136 >40 mg/dL HDLC RATIO 1.6 <=5.0 TRIG 124 30 - 170 mg/dL LDL CHOL 52 <=160 mg/dL VLDL 25 5 - 60 mg/dL TROPONIN I - Normal TROPONIN I 0.024 <=0.034 ng/mL INFLUENZA A/B RSV COVID NAAT - Normal Influenza A NAAT Negative Negative Influenza B NAAT Negative Negative RSV by PCR Negative Negative SARS-CoV-2 NAAT Negative Negative URINALYSIS MRSA / MSSA SCREEN BY PCR, NARES Orders and Treatments: Orders Placed This Encounter Procedures CT Abdomen pelvis w contrast TROPONIN I LIPASE CBC with Diff CMP AMYLASE URINALYSIS Influenza A B RSV COVID NAAT Lipid Panel (14014)(Total Cholesterol, Triglycerides, HDL) MRSA / MSSA Screen by PCR, Nares CBC with Differential Basic Metabolic Panel (NA, K, CL, CO2, Glucose, BUN, Creatinine, CA) O2 Per Protocol Orders Placed This Encounter Medications NaCl 0.9% (NS) bolus infusion 1,000 mL ondansetron (ZOFRAN (PF)) injection 4 mg morpHINE (4 mg/mL) injection 4 mg DISCONTD: ondansetron (ZOFRAN (PF)) injection 4 mg DISCONTD: NaCl 0.9% (NS) IV infusion 1,000 mL iopamidol (ISOVUE 370-500 mL) injection 65 mL morpHINE (4 mg/mL) injection 4 mg proMETHazine (PHENERGAN) 25 mg in NS 50 mL IV piggyback (CNR) enoxaparin (LOVENOX) injection 40 mg NaCl 0.9% (NS) IV infusion 1,000 mL First Provider Eval: ED Events Date/Time Event User Comments 01/06/25221 Medical Screening Begins SHAINA TAI MD -- 01/06/25221 First Provider Evaluation SHAINA TAI MD -- AdmissionCare Guideline: Pancreatitis, WITH Alcohol Misuse, Inpatient Based on the indications selected for the patient, the bed status of Inpatient was determined to be MET The following indications were selected as present at the time of evaluation of the patient: - Clinical Indications for Admission to Inpatient Care - Admission is indicated for 1 or more of the following: - Acute pancreatitis, as indicated by ALL of the following: - Diagnosis of acute pancreatitis, as indicated by 2 or more of the following: - Abdominal pain consistent with acute pancreatitis (eg, constant epigastric or left upper quadrant pain; radiation to the back, chest, or flanks) - Serum lipase greater than 3 times the upper limit of normal - Findings on imaging indicative of acute pancreatitis (eg, pancreatic inflammation, pancreatic necrosis, peripancreatic fluid collection) - Hospital care needed beyond observation care time frame (eg, across 2 or more midnights), as indicated by 1 or more of the following: - Necessity for continued hospital-based monitoring or treatment (eg, administration of IV fluids, ongoing assessment of adequacy of pain control) AdmissionCare documentation entered by: Shaina Tai [facility], 29 edition, Copyright ? 2024 [facility] [employer] All Rights Reserved. [id number]:05-05:00 ED COURSE Diagnosis/Impression as of 01/06/25 0554 Viral syndrome Pain of upper abdomen Acute pancreatitis, unspecified complication status, unspecified pancreatitis type Acute on chronic pancreatitis Results Procedures: Procedures MDM: Assessment & Plan Medical Decision Making Jim Porras is a 54 year old male who presents to the ED with RUQ pain, N/V X 3 days Problems Addressed: Acute on chronic pancreatitis: acute illness or injury Details: [id number] Pancreatitis Continues with pain , N/V in the ED Lipid panel WNL Will admit for further evaluation and management Amount and/or Complexity of Data Reviewed External Data Reviewed: notes. Labs: ordered. Decision-making details documented in ED Course. Radiology: ordered. Decision-making details documented in ED Course. Risk Prescription drug management. Parenteral controlled substances. Decision regarding hospitalization. Flowsheet Documentation: Scoring Tools: No data recorded Disposition/Condition: ED Disposition ED Disposition Admit - IMCU Condition -- Comment -- Discharge Medications: Patient's Medications START taking these medications No medications on file CONTINUE taking these medications which have NOT CHANGED ACETAMINOPHEN-CODEINE (TYLENOL-CODEINE #3) 300-30 MG TABLET Take 1 Tab by mouth every 4 (four) hours as needed for Pain (scale 7-10). DICYCLOMINE 20 MG TABLET Take 1 tablet by mouth 4 (four) times daily. FUROSEMIDE (LASIX) 20 MG TABLET Take 1 tablet by mouth in the morning. ONDANSETRON 4 MG DISINTEGRATING TABLET Take 1 tablet by mouth every 4 (four) hours as needed for Nausea and Vomiting (N/V). PANTOPRAZOLE 40 MG EC TABLET Take 1 tablet by mouth in the morning. START taking Modified Medications as Prescribed No medications on file STOP taking these medications No medications on file Follow-up: Follow-up Information None Electronically signed by: Shaina Tai MD 01/06/25 0542 Shaina Tai MD 01/06/25 0554 [facility] 2025-01-06 02:09:00 AdmissionCare Guideline: Pancreatitis, WITH Alcohol Misuse, Inpatient Based on the indications selected for the patient, the bed status of Inpatient was determined to be MET The following indications were selected as present at the time of evaluation of the patient: - Clinical Indications for Admission to Inpatient Care - Admission is indicated for 1 or more of the following: - Acute pancreatitis, as indicated by ALL of the following: - Diagnosis of acute pancreatitis, as indicated by 2 or more of the following: - Abdominal pain consistent with acute pancreatitis (eg, constant epigastric or left upper quadrant pain; radiation to the back, chest, or flanks) - Serum lipase greater than 3 times the upper limit of normal - Findings on imaging indicative of acute pancreatitis (eg, pancreatic inflammation, pancreatic necrosis, peripancreatic fluid collection) - Hospital care needed beyond observation care time frame (eg, across 2 or more midnights), as indicated by 1 or more of the following: - Necessity for continued hospital-based monitoring or treatment (eg, administration of IV fluids, ongoing assessment of adequacy of pain control) AdmissionCare documentation entered by: Shaina Tai [facility], 29th edition, Copyright ? 2024 [facility] All Rights Reserved. [id number]:05-05:00 T [facility] 2024-05-22 11:58:24 Problem: Falls, Risk of Goal: Absence of falls Outcome: Adequate for discharge Problem: Pain Goal: Control of pain at or below patient's documented comfort goal Outcome: Adequate for discharge Goal: Reduction in pain sensation Outcome: Adequate for discharge Problem: Discharge Planning Goal: Adequate for discharge Outcome: Adequate for discharge Goal: Effective communication Outcome: Adequate for discharge Problem: Skin integrity Impaired (Risk or Actual) Goal: Prevention of new skin breakdown Outcome: Adequate for discharge Problem: Venous Thromboembolism, (actual or risk of) Goal: Absence of venous thromboembolism (Risk) Outcome: Adequate for discharge Problem: Infection Risk Goal: Absence of infection Outcome: Adequate for discharge Problem: Respiratory Function - Impaired Goal: Able to cough effectively Outcome: Adequate for discharge Goal: Adequate oxygenation Outcome: Adequate for discharge Goal: Adequate work of breathing Outcome: Adequate for discharge Goal: Patent airway Outcome: Adequate for discharge A Morgan RN [facility] 2024-05-22 00:35:49 Problem: Falls, Risk of Goal: Absence of falls Outcome: Progressing as expected Problem: Pain Goal: Control of pain at or below patient's documented comfort goal Outcome: Progressing as expected Goal: Reduction in pain sensation Outcome: Progressing as expected Problem: Discharge Planning Goal: Adequate for discharge Outcome: Progressing as expected Goal: Effective communication Outcome: Progressing as expected Problem: Skin integrity Impaired (Risk or Actual) Goal: Prevention of new skin breakdown Outcome: Progressing as expected Problem: Venous Thromboembolism, (actual or risk of) Goal: Absence of venous thromboembolism (Risk) Outcome: Progressing as expected Problem: Infection Risk Goal: Absence of infection Outcome: Progressing as expected Problem: Respiratory Function - Impaired Goal: Able to cough effectively Outcome: Progressing as expected Goal: Adequate oxygenation Outcome: Progressing as expected Goal: Adequate work of breathing Outcome: Progressing as expected Goal: Patent airway Outcome: Progressing as expected [employer] Julienne Calderon RN [facility] 2024-05-21 14:39:07 Problem: Falls, Risk of Goal: Absence of falls Outcome: Progressing as expected Problem: Pain Goal: Control of pain at or below patient's documented comfort goal Outcome: Progressing as expected Goal: Reduction in pain sensation Outcome: Progressing as expected Problem: Discharge Planning Goal: Adequate for discharge Outcome: Progressing as expected Goal: Effective communication Outcome: Progressing as expected Problem: Skin integrity Impaired (Risk or Actual) Goal: Prevention of new skin breakdown Outcome: Progressing as expected Problem: Venous Thromboembolism, (actual or risk of) Goal: Absence of venous thromboembolism (Risk) Outcome: Progressing as expected Problem: Infection Risk Goal: Absence of infection Outcome: Progressing as expected Problem: Respiratory Function - Impaired Goal: Able to cough effectively Outcome: Progressing as expected Goal: Adequate oxygenation Outcome: Progressing as expected Goal: Adequate work of breathing Outcome: Progressing as expected Goal: Patent airway Outcome: Progressing as expected [employer] Elen Jasso RN [facility] 2024-05-20 23:32:42 Problem: Falls, Risk of Goal: Absence of falls Outcome: Progressing as expected Problem: Pain Goal: Control of pain at or below patient's documented comfort goal Outcome: Progressing as expected Goal: Reduction in pain sensation Outcome: Progressing as expected Problem: Discharge Planning Goal: Adequate for discharge Outcome: Progressing as expected Goal: Effective communication Outcome: Progressing as expected Problem: Skin integrity Impaired (Risk or Actual) Goal: Prevention of new skin breakdown Outcome: Progressing as expected Problem: Venous Thromboembolism, (actual or risk of) Goal: Absence of venous thromboembolism (Risk) Outcome: Progressing as expected Problem: Infection Risk Goal: Absence of infection Outcome: Progressing as expected Problem: Respiratory Function - Impaired Goal: Able to cough effectively Outcome: Progressing as expected Goal: Adequate oxygenation Outcome: Progressing as expected Goal: Adequate work of breathing Outcome: Progressing as expected Goal: Patent airway Outcome: Progressing as expected [facility] Nicole Sandoval RN [facility] 2024-05-20 14:10:50 Problem: Falls, Risk of Goal: Absence of falls Outcome: Progressing as expected Problem: Pain Goal: Control of pain at or below patient's documented comfort goal Outcome: Progressing as expected Goal: Reduction in pain sensation Outcome: Progressing as expected Problem: Discharge Planning Goal: Adequate for discharge Outcome: Progressing as expected Goal: Effective communication Outcome: Progressing as expected Problem: Skin integrity Impaired (Risk or Actual) Goal: Prevention of new skin breakdown Outcome: Progressing as expected Problem: Venous Thromboembolism, (actual or risk of) Goal: Absence of venous thromboembolism (Risk) Outcome: Progressing as expected Problem: Infection Risk Goal: Absence of infection Outcome: Progressing as expected [facility] 2024-05-20 10:45:25 Images from the original note were not included. Pharmacy Recommendations for Patient Admission: No recommendations. The [facility] medication list has been updated and reflected in the chart below. Please use the [facility] Med List for ordering home doses during admission. Patient Adherence: Adherent to all medications. Source(s) used in interview: Patient Interview limitations: None Medications Added Medications Removed Medications Modified Allergies as of 05/19/2024 (No Known Allergies) Pharmacy Updated [facility] Med List Medication Sig furosemide (LASIX) 20 mg tablet Take 1 tablet by mouth in the morning. HYDROcodone-acetaminophen 7.5-325 mg per tablet Take 1 tablet by mouth every 6 (six) hours as needed for Pain. ondansetron 4 mg disintegrating tablet Take 1 tablet by mouth every 8 (eight) hours as needed for Nausea and Vomiting (N/V). Outpatient Pharmacy Contact Information: [facility] [address] [place] [id number] Thank you for the opportunity to participate in the care of this patient. Bernie Robert RPH 10:44 AM, 05/20/2024 [facility] Department of Pharmacy - [facility] Phone: ADC: [phone] [facility] Bernie Robert [facility] 2024-05-20 03:09:25 Problem: Falls, Risk of Goal: Absence of falls Outcome: Progressing as expected Problem: Pain Goal: Control of pain at or below patient's documented comfort goal Outcome: Progressing as expected Goal: Reduction in pain sensation Outcome: Progressing as expected Problem: Discharge Planning Goal: Adequate for discharge Outcome: Progressing as expected Goal: Effective communication Outcome: Progressing as expected Problem: Skin integrity Impaired (Risk or Actual) Goal: Prevention of new skin breakdown Outcome: Progressing as expected Problem: Venous Thromboembolism, (actual or risk of) Goal: Absence of venous thromboembolism (Risk) Outcome: Progressing as expected Problem: Infection Risk Goal: Absence of infection Outcome: Progressing as expected [facility] 2024-05-19 16:25:38 Problem: Falls, Risk of Goal: Absence of falls Outcome: Progressing as expected Problem: Pain Goal: Control of pain at or below patient's documented comfort goal Outcome: Progressing as expected Goal: Reduction in pain sensation Outcome: Progressing as expected Problem: Discharge Planning Goal: Adequate for discharge Outcome: Progressing as expected Goal: Effective communication Outcome: Progressing as expected Problem: Skin integrity Impaired (Risk or Actual) Goal: Prevention of new skin breakdown Outcome: Progressing as expected Problem: Venous Thromboembolism, (actual or risk of) Goal: Absence of venous thromboembolism (Risk) Outcome: Progressing as expected Problem: Infection Risk Goal: Absence of infection Outcome: Progressing as expected [facility] 2024-05-19 11:50:[address] [facility] for diagnosis of acute abdominal pain, vomiting and diarrhea, hypokalemia. Patient agrees to admission, discussed plan of care with patient and family. Patient is awake, alert, oriented, resp reg unlabored, color appropriate for race, PIV intact. No adverse reaction to medications administered while in ED. Belongings with patient to unit. A Villaseñor RN [facility] 2024-05-19 11:41:00 Nurse Report Report given to Shannen PALMER. Chief complaint, assessment findings, infusion verify and orders reviewed. A Cabrera RN [facility] 2024-05-19 06:42:42 Pt came in with abdominal pain and N/V and diarrhea. Symptoms started a week ago. A Wylie RN [facility] 2024-05-19 06:36:00 Associated Order(s): EKG-12 Lead ROUTINE ONCE Pre-Procedure Diagnose(s): Acute abdominal pain Post-Procedure Diagnose(s): Acute abdominal pain [facility] Emergency Department Note Patient Name: Jim Porras Date of : 1970 54 year old male Treatment Room: [place] [address] Primary Care Physician: Lexx Thompson Patient Escorted by: Self [9] Mode of Arrival: Personal means [1] EMS Treatment Prior to ED Arrival: [facility] treatment: Medication (comment) [facility] treatment comments: immodium @ 0500 Travel and Exposure Screening: Symptoms Does patient have any of these symptoms?: (not recorded) Exposure Screening Has patient had contact with someone with a communicable disease in the last month?: (not recorded) Diseases exposed to:: (not recorded) Is Patient ?: (not recorded) Exposure Date: (not recorded) Chief Complaint: Chief Complaint Patient presents with Abdominal Pain History of Present Illness: Jim Porras is a 54 year old male presenting with abdominal pain, n/v/d, fatigue for the past week. Pt came to ED yesterday for same complaints and was found to be hypoxic with electrolyte abnormalities. 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 Pt amenable to admission today. Reports worsening of diarrhea overnight and on and off chest pain. Past surgical hx notable for cholecystectomy (1 yr prior) and x2 hernia repairs. History provided by: Patient Abdominal Pain Pain location: LUQ and RUQ Pain quality: aching Pain radiates to: Does not radiate Pain severity: Moderate Onset quality: Gradual Duration: 3 days Timing: Constant Progression: Waxing and waning Chronicity: New Relieved by: Nothing Worsened by: Eating Ineffective treatments: Lying down Associated symptoms: chest pain, cough, diarrhea, fatigue, nausea, shortness of breath and vomiting Associated symptoms: no dysuria and no sore throat Past Medical History/Immunizations: No past medical history on file. Tetanus received in last 5 years: Yes Childhood immunizations: Up-to-date Allergies: No Known Allergies Past Social History: Tobacco Use Every Day; 2.0 packs/day; Types: Cigarettes Passive Exposure: Current Tobacco Cessation: Ready to quit: No; Counseling given: Yes Past Surgical History: No past surgical history on file. Review of Systems: Review of Systems Constitutional: Positive for activity change, appetite change, fatigue and weight loss. HENT: Positive for congestion and postnasal drip. Negative for ear pain and sore throat. Eyes: Negative for pain, discharge and redness. Respiratory: Positive for cough and shortness of breath. Cardiovascular: Positive for chest pain. Negative for leg swelling. Gastrointestinal: Positive for abdominal pain, diarrhea, nausea and vomiting. Genitourinary: Negative for dysuria, urgency, frequency and difficulty urinating. Musculoskeletal: Negative for neck pain and neck stiffness. Skin: Negative for color change, pallor and rash. Endocrine: Positive for weight loss. Physical Exam: ED Triage Vitals [05/19/24 0643] Weight 63.9 kg (140 lb 14.4 oz) Actual or estimated Actual Height 1.753 m (5' 9") BP 136/89 Pulse 97 Resp 18 Temp 36.4 ?C (97.5 ?F) Temp source Oral SpO2 94 % Measured on Room air Physical Exam Vitals reviewed. Constitutional: General: He is not in acute distress. Appearance: He is not toxic-appearing. HENT: Head: Normocephalic and atraumatic. Right Ear: Tympanic membrane, ear canal and external ear normal. There is no impacted cerumen. Left Ear: Tympanic membrane, ear canal and external ear normal. There is no impacted cerumen. Nose: Nose normal. Mouth/Throat: Pharynx: Oropharynx is clear. No oropharyngeal exudate or posterior oropharyngeal erythema. Eyes: General: No scleral icterus. Right eye: No discharge. Left eye: No discharge. Conjunctiva/sclera: Conjunctivae normal. Cardiovascular: Rate and Rhythm: Normal rate and regular rhythm. Pulses: Normal pulses. Heart sounds: Normal heart sounds. Pulmonary: Effort: Pulmonary effort is normal. No respiratory distress. Breath sounds: Normal breath sounds. No wheezing. Abdominal: General: Abdomen is flat. Bowel sounds are decreased. There is no distension. Palpations: Abdomen is soft. Tenderness: There is abdominal tenderness in the right upper quadrant and left upper quadrant. There is no guarding or rebound. Comments: Abdominal tenderness between RUQ and RLQ without rebound tenderness. Musculoskeletal: General: No swelling, tenderness, deformity or signs of injury. Cervical back: Neck supple. No rigidity or tenderness. Right lower leg: No edema. Left lower leg: No edema. Skin: General: Skin is warm and dry. Capillary Refill: Capillary refill takes less than 2 seconds. Coloration: Skin is not jaundiced or pale. Findings: No rash. Neurological: General: No focal deficit present. Mental Status: He is alert and oriented to person, place, and time. Cranial Nerves: No cranial nerve deficit. Motor: No weakness. Radiology: CT Abdomen pelvis wo contrast Final Result EXAM: CT ABDOMEN PELVIS WO CONTRAST HISTORY: 54 years-old Male; Abdominal pain, acute, nonlocalized . TECHNIQUE: Contiguous axial imaging from the level of the lung bases through the proximal thighs was performed without the intravenous administration of contrast. Coronal and sagittal reconstructions were obtained. COMPARISON: CT abdomen dated 09/30/[address] chest dated 05/18/2024 FINDINGS: LOWER THORAX: Scattered tree-in-bud opacities in the bilateral lung bases, right worse than left, may represent aspiration or developing infection. A calcified granuloma is again seen in the right lower lobe. LIVER: The liver appears enlarged secondary to a Massimo lobe. No suspicious hepatic lesion is seen within the limits of a non contrast examination. Areas of focal steatosis are noted adjacent to the gallbladder fossa. GALLBLADDER AND BILIARY TREE: Postsurgical changes of cholecystectomy are seen. No biliary ductal dilation is visualized. SPLEEN: The spleen is mildly enlarged and measures approximately 13.7 cm. PANCREAS: Sequelae of chronic pancreatitis are again noted with marked parenchymal atrophy and calcification. ADRENAL GLANDS: No mass is seen. KIDNEYS: Normal size and appearance. A 1.3 cm renal cortical cyst is again seen in the right superior pole. Multiple nonobstructing stones are seen in the bilateral kidneys measuring up to 5 mm on the right and 4 mm on the left. No hydronephrosis is visualized. PELVIS/BLADDER: The bladder is unremarkable. No suspicious pelvic mass is seen. GI TRACT: No obstruction is seen. The appendix appears unremarkable. Gastric embolization material is again noted. Radiopaque material partially opacifies the esophageal lumen and enters the stomach. PERITONEUM AND RETROPERITONEUM: No intra-abdominal free air or fluid collection is visualized. LYMPH NODES: No suspicious lymphadenopathy is seen. VESSELS: Mild atherosclerotic calcification of the abdominal aorta and iliac branches is seen. BONES AND SOFT TISSUES: No suspicious osseous lesion is seen. Age-indeterminant compression deformity with 50% height loss at L1 is again seen. A small, fat-containing periumbilical hernia is present. IMPRESSION 1. Multiple bilateral nonobstructing nephrolithiasis measuring up to 5 mm on the right and 4 mm on the left. No hydronephrosis is visualized. 2. Scattered tree-in-bud opacities in the lung bases may represent aspiration or developing infection. 3. Redemonstration of age-indeterminant L1 compression deformity. 4. Mild splenomegaly. Preliminary Report Dictated by Resident: Alden Blackmon I, Ryan Hunter MD., have reviewed this study and agree with the above report. Lab Results: Lab Results CBC WITH DIFF - Abnormal Result Value Ref Range WBC 5.53 4.20 - 10.70 10*3/?L RBC 4.27 4.26 - 5.52 10*6/?L HGB 14.6 12.2 - 16.4 g/dL HCT 41.3 38.4 - 49.3 % MCV 96.7 (*) 81.7 - 95.6 fL MCH 34.2 (*) 26.1 - 32.7 pg MCHC 35.4 (*) 31.2 - 35.0 g/dL RDW-SD 51.3 38.5 - 51.6 fL RDW-CV 14.4 12.1 - 15.4 % PLT 85 (*) 150 - 328 10*3/?L MPV 11.6 9.8 - 13.0 fL IPF % 8.1 1.2 - 10.7 % NRBC/100 WBC 0.0 0.0 - 10.0 /100 WBCs NRBC x10 3 <0.01 10*3/?L GRAN MAT (NEUT) % 77.0 % IMM GRAN % 0.90 % LYMPH % 13.4 % MONO % 8.5 % EOS % 0.0 % BASO % 0.2 % GRAN MAT x10 3 (ANC) 4.26 1.99 - 6.95 10*3/uL IMM GRAN x10 3 0.05 0.00 - 0.06 10*3/uL LYMPH x10 3 0.74 (*) 1.09 - 3.23 10*3/uL MONO x10 3 0.47 0.36 - 1.02 10*3/uL EOS x10 3 <0.03 (*) 0.06 - 0.53 10*3/uL BASO x10 3 <0.03 0.01 - 0.09 10*3/uL ELLIPTO/OVAL 2+ (*) (none) SPHEROCYTES 1+ (*) TOXIC CHANGES Present (*) GIANT PLATELETS Present (*) (none) COMP. METABOLIC PANEL (66864) - Abnormal NA 134 (*) 135 - 145 mmol/L K 2.4 (*) 3.5 - 5.0 mmol/L CL 96 (*) 98 - 108 mmol/L CO2 TOTAL 31 23 - 31 mmol/L AGAP 7 2 - 16 BUN 7 7 - 23 mg/dL GLUCOSE 143 (*) 70 - 110 mg/dL CREATININE 0.54 (*) 0.60 - 1.25 mg/dL TOTAL BILI 0.5 0.1 - 1.1 mg/dL CALCIUM 8.4 (*) 8.6 - 10.6 mg/dL T PROTEIN 7.6 6.3 - 8.2 g/dL ALBUMIN 4.1 3.5 - 5.0 g/dL ALK PHOS 121 34 - 122 U/L ALTv 31 5 - 50 U/L AST(SGOT) 41 (*) 13 - 40 U/L eGFR 117.0 mL/min/1.73m2 URINALYSIS - Abnormal APPEARANCE Clear Clear COLOR Yellow Yellow PH 6.0 4.8 - 8.0 SP GRAVITY 1.017 1.003 - 1.030 GLU U QUAL Normal Normal BLOOD 2+ (*) Negative KETONES 5 mg/dL (*) Negative PROTEIN 100 mg/dL (*) Negative UROBILIN Normal Normal BILIRUBIN Negative Negative NITRITE Negative Negative LEUK NARENDRA Negative Negative RBC/HPF 91 (*) 0 - 3 HPF WBC/HPF 1 0 - 5 HPF BACTERIA Negative Negative MUCOUS Slight (*) Negative LPF SQ EPITH <1 HPF LIPASE - Normal LIPASE 49 0 - 220 U/L TROPONIN I - Normal TROPONIN I 0.008 <=0.034 ng/mL MAGNESIUM - Normal MAGNESIUM 2.3 1.7 - 2.4 mg/dL EKG: If EKG completed, see Procedure Note. Orders and Treatments: Orders Placed This Encounter Procedures CT Abdomen pelvis wo contrast CBC WITH DIFF COMP. METABOLIC PANEL (75757) LIPASE TROPONIN I URINALYSIS Magnesium Basic Metabolic Panel (NA, K, CL, CO2, GLUCOSE, BUN, CREATININE, CA) CBC with Differential Magnesium Serum Phosphorus Serum CLOSTRIDIUM DIFFICILE TOXIN Fecal Pathogens by PCR Orders Placed This Encounter Medications ondansetron (ZOFRAN (PF)) injection 4 mg ketorolac (TORADOL) injection 15 mg KCL (KLOR-CON M20) tablet 40 mEq DISCONTD: KCL (POTASSIUM CHLORIDE) 20 mEq in NaCl 0.9% (NS) 100 mL piggyback morpHINE (4 mg/mL) injection 4 mg ondansetron (ZOFRAN (PF)) injection 4 mg potassium chloride in water (KCL) 20 mEq/100 mL IV infusion 20 mEq furosemide (LASIX) 20 mg tablet HYDROcodone-acetaminophen 7.5-325 mg per tablet DISCONTD: enoxaparin (LOVENOX) injection 40 mg acetaminophen (TYLENOL) tablet 650 mg HYDROcodone-acetaminophen (NORCO 5) tablet 1 tablet DISCONTD: morpHINE (4 mg/mL) injection 4 mg ondansetron (ZOFRAN (PF)) injection 4 mg ampicillin-sulbactam (UNASYN) 3 g in NaCl 0.9% (NS) 100 mL MINI-BAG ipratropium-albuteroL (DUONEB) 0.5 mg-3 mg(2.5 mg base)/3 mL nebulizer solution 3 mL dexamethasone (DECADRON PHOSPHATE) 4 mg/mL injection 2 mg KCL (KLOR-CON M20) tablet 40 mEq potassium chloride in water 10 mEq/100 mL RTU 10 mEq spironolactone (ALDACTONE) tablet 25 mg potassium chloride in water 10 mEq/100 mL RTU 10 mEq potassium chloride in water 10 mEq/100 mL RTU 10 mEq HYDROmorphone (DILAUDID) injection 0.5 mg First Provider Eval: ED Events Date/Time Event User Comments 05/19/24 0654 Medical Screening Begins BARBARA CASPER DO -- 05/19/24 0654 First Provider Evaluation BARBARA CASPER DO -- ED COURSE ED Course as of 05/20/24 0847 SunMay 19, [address] Abdomen pelvis wo contrast [PW] ED Course User Index [PW] William Alcazar Diagnosis/Impression as of 05/20/24 0847 Acute abdominal pain Vomiting and diarrhea Hypokalemia Procedures: EKG-12 Lead ROUTINE ONCE Date/Time: 05/19/2024 7:58 AM Performed by: Barbara Casper DO Authorized by: Barbara Casper DO ECG interpreted by ED Physician in the absence of a manager of operations: yes Interpretation: Interpretation: abnormal Rate: ECG rate: 76 ECG rate assessment: normal Rhythm: Rhythm: sinus rhythm Ectopy: Ectopy: none QRS: QRS axis: Normal QRS intervals: Normal QRS conduction: normal ST segments: ST segments: Non-specific T waves: T waves: normal Q waves: Abnormal Q-waves: not present MDM: Medical Decision Making Jim Porras is a 54 year old male presenting with abdominal pain, n/v/d, fatigue for the past week. Pt left AMA from ED yesterday, but he is amenable to admissions today. Differentials include gastroenteritis, including norovirus, inflammatory bowel disease, perforated bowel, abdominal adhesions. Will obtain laboratory studies and start fluids, Zofran, and pain management, and replete electrolytes as needed. Anticipate inpatient admissions later today. 1000 - Will obtain CT abdomen. Patient was evaluated for the complaint of Abdominal Pain Diagnoses considered but not limited to: Appendicitis Diarrhea Myocardial Infarction (acute) Pancreatitis (acute) Peptic Ulcer Disease Pyelonephritis Renal Colic Ureterolithiasis Urinary Tract Infection Vomiting. Labs:were ordered, and resulted, any relevant abnormalities were considered. Imaging:Ordered, and resulted, any relevant abnormalities were considered. Procedures:were not performed. History, physical exam findings, results of visit, diagnosis, medication regimens and plan of future care have been considered. Additional MDM may be found in the ED course. Vital signs were rechecked before final disposition and determined to be stable. Amount and/or Complexity of Data Reviewed Labs: ordered. Decision-making details documented in ED Course. Radiology: ordered. Decision-making details documented in ED Course. Risk Prescription drug management. Parenteral controlled substances. Decision regarding hospitalization. Flowsheet Documentation: Scoring Tools: No data recorded Disposition/Condition: ED Disposition ED Disposition Admit - Inpatient Condition -- Comment -- Discharge Medications: Current Discharge Medication List STOP taking these medications furosemide (LASIX) 20 mg tablet Comments: Reason for Stopping: HYDROcodone-acetaminophen 7.5-325 mg per tablet Comments: Reason for Stopping: loperamide (IMODIUM A-D) 2 mg capsule Comments: Reason for Stopping: ondansetron 4 mg disintegrating tablet Comments: Reason for Stopping: acetaminophen-codeine (TYLENOL-CODEINE #3) 300-30 mg tablet Comments: Reason for Stopping: Follow-up: Contact information for follow-up Lexx Thompson MD Specialty: INTERNAL MEDICINE Relationship: PCP - [address] [address] MOHIT Calderon Electronically signed by: Barbara Casper DO 05/20/24 2346 [facility] 2024-05-18 13:41:02 Patient is alert and oriented x 4 and does not agree with admission/transfer/plan of care at this time. Provider aware of patient decision. Explained to patient that they can return at any time if they change their mind and wish to seek further treatment. Patient signed AMA form. Patient ambualtory out of ER in no distress, ABCs intact. RENCE LIBRARIAN Ash Roldan RN [facility] 2024-05-18 09:54:06 Patient states: "It started out with runny nose/ cough on Sunday. Then I started having diarrhea and vomiting. I haven't ate anything since Sunday" Pmhx: cholecystectomy, blood transfusion, RENCE LIBRARIAN Radha Hardin RN [facility] 2024-05-18 09:50:00 [facility] Emergency Department Note Patient Name: Jim Porras Date of : 1970 54 year old male Treatment Room: [facility] Primary Care Physician: Lexx Thompson Patient Escorted by: Family [5] Mode of Arrival: Personal means [1] EMS Treatment Prior to ED Arrival: CORRESPONDENCE SPECIALIST treatment: Medication (comment) CORRESPONDENCE SPECIALIST treatment comments: mucinex Travel and Exposure Screening: Symptoms Does patient have any of these symptoms?: (not recorded) Exposure Screening Has patient had contact with someone with a communicable disease in the last month?: (not recorded) Diseases exposed to:: (not recorded) Is Patient ?: (not recorded) Exposure Date: (not recorded) Chief Complaint: Chief Complaint Patient presents with Cough Vomiting Diarrhea History of Present Illness: HPI Jim Porras is a 54 year old male presenting with cough, vomiting, malaise and fatigue for the past approximately one week. Patient reports that symptoms have been progressively worsening. Patient reports having family members with similar symptoms. Patient, on arrival with saturations of 89% with a good wave form on arrival to the ER and placed on 2-3L NC on arrival. Patient reports has not been able to keep down anything. Patient denies fevers. Past Medical History/Immunizations: No past medical history on file. Tetanus received in last 5 years: Yes Allergies: No Known Allergies Past Social History: Substance & Sexual Activity No substance use or sexual activity history on file. Past Surgical History: No past surgical history on file. Review of Systems: Review of Systems Constitutional: Positive for activity change, appetite change and fatigue. Negative for fever. HENT: Positive for congestion and rhinorrhea. Eyes: Negative for photophobia and visual disturbance. Respiratory: Positive for cough, chest tightness and shortness of breath. Negative for choking, wheezing and stridor. Cardiovascular: Negative for chest pain, palpitations and leg swelling. Gastrointestinal: Positive for diarrhea, nausea and vomiting. Negative for abdominal distention, abdominal pain, anal bleeding, blood in stool and constipation. Genitourinary: Negative for dysuria. Neurological: Positive for weakness and light-headedness. Negative for dizziness, tremors, seizures, syncope, facial asymmetry, speech difficulty, numbness and headaches. Generalized weakness, no focal deficits Physical Exam: ED Triage Vitals [05/18/24 0955] Weight 65.8 kg (145 lb) Actual or estimated Estimated by patient/family report Height 1.753 m (5' 9") BP 120/79 Pulse 108 Resp 16 Temp 37.1 ?C (98.8 ?F) Temp source Oral SpO2 92 % Measured on Room air Physical Exam Vitals and nursing note reviewed. Constitutional: General: He is not in acute distress. Appearance: He is well-developed. He is not diaphoretic. HENT: Head: Normocephalic and atraumatic. Mouth/Throat: Pharynx: No oropharyngeal exudate. Eyes: General: No scleral icterus. Right eye: No discharge. Neck: Vascular: No JVD. Cardiovascular: Rate and Rhythm: Regular rhythm. Tachycardia present. Heart sounds: Normal heart sounds. No murmur heard. No friction rub. No gallop. Pulmonary: Effort: Pulmonary effort is normal. No respiratory distress. Breath sounds: Normal breath sounds. No stridor. No wheezing or rales. Chest: Chest wall: No tenderness. Abdominal: General: Bowel sounds are normal. There is no distension. Palpations: Abdomen is soft. There is no mass. Tenderness: There is no abdominal tenderness. There is no guarding or rebound. Musculoskeletal: Cervical back: Normal range of motion and neck supple. Lymphadenopathy: Cervical: No cervical adenopathy. Skin: Capillary Refill: Capillary refill takes less than 2 seconds. Neurological: General: No focal deficit present. Mental Status: He is alert and oriented to person, place, and time. Mental status is at baseline. Cranial Nerves: No cranial nerve deficit. Coordination: Coordination normal. Radiology: CT Chest pulmonary angiogram Preliminary Result PROCEDURE: CT ANGIO CHEST WITH CONTRAST - PE PROTOCOL CLINICAL INDICATION: PE suspected, high pretest prob COMPARISON: Abdominal CT from September 30, 2023. TECHNIQUE: Helical CT was performed and reconstructed at 1.25 mm slice thickness from lung base to apices after the administration of intravenous contrast. Display field of view: 40 cm. FINDINGS: PULMONARY ARTERIES: Enhancement is adequate (HU 442), and there is no intraluminal filling defect in the main, lobar, segmental, or subsegmental branches of the pulmonary arteries to suggest pulmonary embolism. CHEST: Lower neck/thyroid: Unremarkable. Lungs and Pleura: Apical predominant centrilobular emphysema right upper lobe 7 mm solid pulmonary nodule (9, 63). There are peripherally distributed centrilobular groundglass opacities in the basilar right lower lobe and right middle lobe. Right middle lobe mild bronchiectasis. Right lower lobe predominant peribronchial thickening.. No pleural effusion or pneumothorax is visualized. There is a basilar right lower lobe thyroid granuloma. Central airway: The central airways are patent. No bronchiectasis, mucus plugging, or bronchial wall thickening. Heart and thoracic great vessels: The heart is normal in size. No detectable coronary arterial calcification. No pericardial effusion is identified. The thoracic aorta and arch vessels are normal in caliber. Lymph nodes: No enlarged axillary, mediastinal, or hilar lymphadenopathy by CT criteria. Thoracic spine and chest wall: New compression deformity with 50% height loss at L1. Visualized upper abdomen: Unremarkable. IMPRESSION 1. No acute or chronic pulmonary embolism through the level of the subsegmental arteries. AIDOC (computer aided detection software) confirms no filling defects in the pulmonary artery branches. 2. Peripherally distributed right lower and middle lobe centrilobular groundglass nodules and peribronchial thickening are possibly infectious/inflammatory in etiology. 3. There is a 7 mm left upper lobe solid pulmonary nodule for which followup CT Chest is recommended in 6-12 months if the patient is high risk according to the Fleischner 2017 guidelines, then again at 3 and 5 years, 4. Age-indeterminate compression deformity with 50% loss at L1 is new since prior exam. Correlation should be made with point tenderness. Preliminary Report Dictated by Resident: Rosa Maria Chavez XR Chest 1 vw Preliminary Result EXAM: XR CHEST 1 VW HISTORY: 54 years-old Male with cough, SOB . TECHNIQUE: Single frontal view of the chest. COMPARISON: Chest radiograph from December 04, 2023 FINDINGS: Lines, tubes and devices: None. Lungs and pleura: The lungs are adequately expanded. No focal opacities, pleural effusion or pneumothorax is visualized. Heart/Mediastinum: The cardiac silhouette appears normal accounting for technique and degree of inspiration. Bones and soft tissues: No acute fracture, aggressive osseous lesion, or dislocation. No soft tissue abnormality. IMPRESSION No focal consolidation, pneumothorax, or pleural effusion. Preliminary Report Dictated by Resident: Rosa Maria Chavez Lab Results: Lab Results CBC WITH DIFF - Abnormal Result Value Ref Range WBC 10.20 4.20 - 10.70 10*3/?L RBC 4.64 4.26 - 5.52 10*6/?L HGB 15.7 12.2 - 16.4 g/dL HCT 43.9 38.4 - 49.3 % MCV 94.6 81.7 - 95.6 fL MCH 33.8 (*) 26.1 - 32.7 pg MCHC 35.8 (*) 31.2 - 35.0 g/dL RDW-SD 49.6 38.5 - 51.6 fL RDW-CV 14.1 12.1 - 15.4 % PLT 95 (*) 150 - 328 10*3/?L MPV 10.9 9.8 - 13.0 fL IPF % 9.4 1.2 - 10.7 % NRBC/100 WBC 0.0 0.0 - 10.0 /100 WBCs NRBC x10 3 <0.01 10*3/?L GRAN MAT (NEUT) % 81.2 % IMM GRAN % 0.50 % LYMPH % 12.1 % MONO % 6.0 % EOS % 0.1 % BASO % 0.1 % GRAN MAT x10 3 (ANC) 8.29 (*) 1.99 - 6.95 10*3/uL IMM GRAN x10 3 0.05 0.00 - 0.06 10*3/uL LYMPH x10 3 1.23 1.09 - 3.23 10*3/uL MONO x10 3 0.61 0.36 - 1.02 10*3/uL EOS x10 3 <0.03 (*) 0.06 - 0.53 10*3/uL BASO x10 3 <0.03 0.01 - 0.09 10*3/uL COMP. METABOLIC PANEL (65762) - Abnormal NA 129 (*) 135 - 145 mmol/L K 2.1 (*) 3.5 - 5.0 mmol/L CL 90 (*) 98 - 108 mmol/L CO2 TOTAL 31 23 - 31 mmol/L AGAP 8 2 - 16 BUN 12 7 - 23 mg/dL GLUCOSE 156 (*) 70 - 110 mg/dL CREATININE 0.55 (*) 0.60 - 1.25 mg/dL TOTAL BILI 0.7 0.1 - 1.1 mg/dL CALCIUM 8.8 8.6 - 10.6 mg/dL T PROTEIN 8.1 6.3 - 8.2 g/dL ALBUMIN 4.4 3.5 - 5.0 g/dL ALK PHOS 131 (*) 34 - 122 U/L ALTv 33 5 - 50 U/L AST(SGOT) 46 (*) 13 - 40 U/L eGFR 116.3 mL/min/1.73m2 TROPONIN I - Normal TROPONIN I 0.008 <=0.034 ng/mL N-TERMINAL PRO-BNP - Normal NT-proBNP 104 <=125 pg/mL INFLUENZA A/B RSV COVID NAAT - Normal Influenza A NAAT Negative Negative Influenza B NAAT Negative Negative RSV by PCR Negative Negative SARS-CoV-2 NAAT Negative Negative RAPID STREP SCREEN FOR GROUP A - Normal Molecular Strep Negative Negative MAGNESIUM - Normal MAGNESIUM 1.7 1.7 - 2.4 mg/dL THROAT CULTURE EKG: If EKG completed, see Procedure Note. Orders and Treatments: Orders Placed This Encounter Procedures XR Chest 2 vw Cbc with Diff Comp. Metabolic Panel (23266) Troponin I N-Terminal Pro-Bnp Influenza A B RSV COVID NAAT Rapid Strep Screen For Group A Orders Placed This Encounter Medications ondansetron (ZOFRAN (PF)) injection 4 mg NaCl 0.9% (NS) bolus infusion 250 mL KCL (KLOR-CON M20) tablet 40 mEq magnesium sulfate in D5W 1 gram/100 mL RTU IV Piggyback 1 g iopamidol (ISOVUE 370-500 mL) injection 85 mL morpHINE (4 mg/mL) injection 4 mg ondansetron (ZOFRAN (PF)) injection 4 mg KCL (KLOR-CON M20) tablet 40 mEq First Provider Eval: ED Events Date/Time Event User Comments 05/18/24 0951 Medical Screening Begins ADRIENNE PAREDES MD -- 05/18/24 0951 First Provider Evaluation ADRIENNE PAREDES MD -- ED COURSE Diagnosis/Impression as of 05/18/24 1133 Vomiting, unspecified vomiting type, unspecified whether nausea present Acute cough Malaise and fatigue Hypokalemia Hypoxic Procedures: Procedures MDM: Medical Decision Making Jim Porras is a 54 year old male presenting with cough, nausea, vomiting and hypoxia. Patient requiring NC to maintain oxygen saturations. Patient is not on oxygen at baseline. Patient's xray unremarkable. CT done to assess for PE and other pulmonary etiologies, given hypoxia in context of unremarkable xray. Negative for PE but with noted ground glass opacities. Viral studies negative for influenza A/B, COVID, RSV. Patient with hypokalemia. Patient received potassium and Mg. Patient still not able to tolerate PO and requiring supplemental oxygen. Plan for admission for further management. 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 Explained to patient that given symptoms, inability to tolerate PO, oxygen requirement and electrolyte abnormalities, admission is recommended. Patient reports that cannot stay. Patient AAOx4 with full decision making capacity, aware of risks of leaving including significant morbidity and mortality and signed AMA form. Problems Addressed: Acute cough: acute illness or injury Hypokalemia: acute illness or injury Hypoxic: acute illness or injury Malaise and fatigue: acute illness or injury Vomiting, unspecified vomiting type, unspecified whether nausea present: acute illness or injury Amount and/or Complexity of Data Reviewed Labs: ordered. Radiology: ordered. Risk Prescription drug management. Parenteral controlled substances. Decision regarding hospitalization. Flowsheet Documentation: Scoring Tools: No data recorded Disposition/Condition: ED Disposition ED Disposition AMA Condition Stable Comment -- Discharge Medications: Patient's Medications START taking these medications No medications on file CONTINUE taking these medications which have NOT CHANGED ACETAMINOPHEN-CODEINE (TYLENOL-CODEINE #3) 300-30 MG TABLET Take 1 Tab by mouth every 4 (four) hours as needed for Pain (scale 7-10). DICYCLOMINE 20 MG TABLET Take 1 tablet by mouth 4 (four) times daily as needed for Abdominal pain. DICYCLOMINE 20 MG TABLET Take 1 tablet by mouth 4 (four) times daily as needed for Abdominal pain. IBUPROFEN 800 MG TABLET Take 1 tablet by mouth every 8 (eight) hours as needed for Pain (scale 4-6). LOPERAMIDE (IMODIUM A-D) 2 MG CAPSULE Take 1 capsule by mouth every 6 (six) hours as needed for Diarrhea. ONDANSETRON 4 MG DISINTEGRATING TABLET Take 1 tablet by mouth every 8 (eight) hours as needed for Nausea and Vomiting (N/V). PANTOPRAZOLE 40 MG EC TABLET Take 1 tablet by mouth in the morning. PROMETHAZINE 25 MG TABLET Take 1 tablet by mouth every 6 (six) hours as needed for Nausea and Vomiting (N/V). START taking Modified Medications as Prescribed No medications on file STOP taking these medications No medications on file Follow-up: Electronically signed by: Adrienne Paredes MD 05/18/24 1330 Adrienne Paredes MD 05/18/24 1331 [facility] 2024-05-18 09:50:00 AdmissionCare Guideline: Systemic or Infectious Condition, Inpatient Based on the indications selected for the patient, the bed status of Inpatient was determined to be MET The following indications were selected as present at the time of evaluation of the patient: - Clinical Indications for Admission to Inpatient Care - Hospital admission is needed for appropriate care of the patient because of 1 or more of the following: - Severe electrolyte abnormalities requiring inpatient care, as indicated by ALL of the following: - Electrolyte abnormality is not at acceptable patient baseline (eg, treatment effect). - Severe abnormality, as indicated by 1 or more of the following: - Potassium less than 3 mEq/L (mmol/L) with severe finding requiring inpatient management (eg, paresis, paralysis, arrhythmia, cardiac conduction disturbance) AdmissionCare documentation entered by: Adrienne Paredes [facility], 28th edition, Copyright ? 2023 [facility] [employer] [facility] All Rights Reserved. [id number] RENCE LIBRARIAN [facility] 2023-12-04 21:45:13 Pt left AMA after receiving 2 units of blood, protonix and octreotide IV. Pt requesting to leave AMA. ERP notified. Pt counseled to remain, risks of leaving AMA including discussed with pt. Pt continued to decline further ER evaluation at this time. AMA papers signed, witnessed, and placed on patient's chart. Pt left ambulatory. VS stable, no ataxia noted, GCS 15, A&Ox4. Kirsten Reich RN [facility] 2023-12-04 10:30:14 Pt sent by with c/o low hgb. Pt appears pale, fatigued. Blle edema noted Connie Benitez RN [facility] 2023-09-30 03:32:59 Pt given printed and verbal discharge instructions regarding anemia, colitis, & upper GI bleeding. Prescriptions provided. Pt verbalized understanding of instructions, pt awake alert oriented, resp reg unlabored, skin w/d, color appropriate for race, moves all ext well,pt encouraged to follow up with pcp and GI. Advised to seek medical attention for new/prolonged/worsening of symptoms. No adverse reaction to meds given in ER noted upon discharge. PIV d'cd, dressing to site, catheter in tact. Awake, alert oriented, resp reg unlabored, skin w/d, pt leaving amb with steady gait, in no apparent distress. Xiao Rosario RN [facility] 2023-09-30 02:18:57 Patient states that he no longer has chest pain but still has abdominal pain/tenderness. Requesting more pain medication. Explained that provider is aware but is awaiting the result of the imaging to determine the best course of pain management. Patient states that he is fine with waiting for the results, provider notified. Samuel [facility] 2023-09-30 00:17:05 Patient reports RUQ abdominal pain with n/v/d since . About two hours ago he started having chest pain described as pressure with left arm numbness. Took a hydrocodone 10 prior to leaving for the pain, he takes for chronic back pain. LBM diarrhea about one hour ago. Roldan RN [facility]
[2025-01-20] MEDS ORDERED: FAMOTIDINE 20 MG/2 ML VIAL IV ONE (18:21)
[2025-01-20] MEDS ORDERED: NA CHLORIDE 0.9% 1,000 ML ONE (18:22)
[2025-01-20 18:26] LABS: Absolute Lymphocytes (CBC) 1.0 K/uL (0.7-4.9); Hematocrit 38.7 % (39.6-49.0); Hemoglobin 13.0 g/dL (13.6-17.9); MCH 32.6 pg (27.0-35.0); MCHC 33.6 g/dL (32.0-36.0); MCV 97.2 fL (80-100); MPV 8.0 fL (7.6-11.3); Nucleated RBC Absolute Count 0.0 (0-0); Nucleated Red Blood Cells % 0.2 % (0-0); RBC Red Blood Cell Count 3.98 M/uL (4.33-5.43); White Blood Count 6.60 thou/uL (4.3-10.9)
[2025-01-20 18:43] LABS: ALT/SGPT 149.0 U/L (16-61); AST/SGOT 206.0 U/L (15-37); Albumin 3.0 g/dL (3.4-5.0); Albumin/Globulin Ratio 0.9 (1.1-1.8); Alkaline Phosphatase 141.0 U/L (45-117); Anion Gap 10.5 mEq/L (5.0-15.0); BUN Blood Urea Nitrogen 12.0 mg/dL (7-18); Globulin 3.4 g/dL (2.3-3.5); Glucose Level 106.0 mg/dL (74-106); Lipase 56.0 U/L (13-75); Potassium 3.5 mEq/L (3.5-5.1)
--- NOTE | 2025-01-20 19:54 | RAD REPORT ---
EXAMINATION: CT Abdomen Pelvis W Contrast CLINICAL INDICATION: Male, 55 years old. ABD PAIN TECHNIQUE: CT abdomen and pelvis was performed, after the administration of IV contrast, [facility]. Axial, sagittal and coronal reconstructions were obtained. One or more of the following dose reduction techniques were used: Automated exposure control, adjustment of the mA and k V according to patient size, and iterative reconstruction. Unless otherwise specified, incidental findings do not require dedicated imaging follow-up. COMPARISON: 05/13/2022 FINDINGS: LOWER CHEST: The visualized lung bases are clear. LIVER: Significant fatty liver with hepatomegaly present. No focal lesion or biliary dilitation. BILIARY SYSTEM: Status post cholecystectomy. SPLEEN: Normal size. No focal lesion. PANCREAS: No mass, ductal dilation, or emily-pancreatic fluid. ADRENALS: Normal; no mass. KIDNEYS: Normal size and contour. Bilateral nonobstructing renal calculi not exceeding 3 mm. No hydro nephrosis. URINARY BLADDER: Unremarkable. GASTROINTESTINAL TRACT: Sequelae of coiling along the stomach mucosa along the body No evidence of fr ee air, significant intra-abdominal free fluid, bowel obstruction or abscess. APPENDIX: Normal appendix. LYMPH NODES: No lymphadenopathy. MUSCULOSKELETAL: Anterior wedge compression deformity at T12, new since the prior exam ADDITIONAL FINDINGS: None. IMPRESSION: Superior endplate compression deformity at T12, new since 2022, but ultimately of indeterminate age. Punctate bilateral renal calculi not exceeding 3 mm. No other acute or concerning abnormalities seen in the abdomen or pelvis.
--- NOTE | 2025-01-20 20:16 | EDPHYS ---
Physician Documentation [facility] Name: Jim Porras Age: 55 yrs Sex: Male : 1970 Arrival Date: 01/20/2025 Time: 17:45 Bed 14 Private MD: ED Physician Gabriel Chavez HPI: 01/20 17:50 This 55 yrs old Male presents to ER via Unassigned with complaints of abdominal pain. [facility] [place] 17:50 55-year-old male with past medical history of pancreatitis and alcoholism presents to [facility] [place] the emergency department via [facility] for right upper quadrant pain. EMS notes patient was drinking alcohol today. Patient is having intermittent every 5 to 10-minute abdominal pain. EMS administered 4 mg Zofran and 1 L of normal saline. Patient endorses nausea. He denies fevers or vomiting. Patient states pain is 10/10.. Historical: - Allergies: 18:02 No Known Allergies; rg5 - PSHx: 18:02 Cholecystectomy; rg5 - Immunization history:: Adult Immunizations not up to date. - Infectious Disease History:: Denies. - Social history:: Smoking status: unknown. ROS: 17:50 Constitutional: Negative for fever, and chills. Cardiovascular: Negative for chest ms3 pain, and palpitations. Respiratory: Negative for shortness of breath, cough, wheezing, and pleuritic chest pain, 17:50 Skin: Negative for injury, rash, and discoloration, 17:50 Abdomen/GI: Positive for abdominal pain, nausea, Negative for vomiting, Exam: 17:50 Constitutional: This is a well developed, well nourished patient who is awake, alert, ms3 and in no acute distress. Cardiovascular: Regular rate and rhythm with a normal S1 and S2. No gallops, murmurs, or rubs. Normal PMI, no JVD. No pulse deficits. Respiratory: Lungs have equal breath sounds bilaterally, clear to auscultation and percussion. No rales, rhonchi or wheezes noted. No increased work of breathing, no retractions or nasal flaring. Skin: Warm, dry with normal turgor. Normal color with no rashes, no lesions, and no evidence of cellulitis. 17:50 Abdomen/GI: Inspection: abdomen appears normal, Bowel sounds: normal, Palpation: severe abdominal tenderness, in the right upper quadrant, Vital Signs: 18:02 BP 108 / 81; Pulse 100; Resp 19; Temp 98.1; Pulse Ox 100% ; Weight 61 kg; Height 5 ft. rg5 9 in. ; Pain 10/10; 19:00 BP 132 / 95; Pulse 89; Resp 19; Pulse Ox 95% on 2 lpm NC; rg5 20:09 BP 133 / 91; Pulse 91; Resp 18; Pulse Ox 97% on 2 lpm NC; Pain 7/10; rg5 18:02 Body Mass Index 19.86 (61.00 kg, 175.26 cm) rg5 18:02 Pain Scale: Adult rg5 20:09 Pain Scale: Adult rg5 MDM: 17:49 Medical Screening Exam initiated ms3 17:50 Differential diagnosis: gastritis, non-specific abd pain, pancreatitis. ms3 19:01 Transition of care: After a detail discussion of the patient's case, care is ms3 transferred to Gabriel Chavez MD. 19:14 Data reviewed: vital signs, nurses notes, lab test result(s), radiologic studies. ED sp3 course: Patient signed out to me by daytime physician Dr. Moss. Patient is a 55-year-old male with history of alcoholic pancreatitis now presents with epigastric abdominal pain. Working diagnosis is pancreatitis among other biliary pathology, gastritis, colitis, musculoskeletal, among others. CT scan and labs pending. We will reevaluate and disposition patient accordingly.. 20:15 ED course: CT scan negative for any pancreatic abnormality. Mild bump in liver sp3 function. Lipase normal. White count normal. Patient sleeping in no acute distress. Vital signs are normal. Will discharge patient home on Bentyl and PCP follow-up.. 01/20 17:53 Order name: CBC with Diff; Complete Time: 19:01 ms3 01/20 17:53 Order name: CMP; Complete Time: 19:01 ms3 01/20 17:53 Order name: Lipase; Complete Time: 19:01 ms3 01/20 17:53 Order name: CT Abd/Pelvis - IV Contrast Only; Complete Time: 20:14 ms3 01/20 17:53 Order name: IV Saline Lock; Complete Time: 18:26 ms3 01/20 17:53 Order name: Labs collected and sent; Complete Time: 18:26 ms3 Administered Medications: 18:09 Drug: NS 0.9% IV 1000 ml IV at 1 bolus Per protocol; to be given as a bolus over 60 rg5 minutes Route: IV; Rate: 1 bolus; Site: left forearm; 20:00 Follow up: IV Status: Completed infusion; IV Intake: 1000ml rg5 18:26 Drug: Famotidine IVP 20 mg IVP once; dilute with 10 mL 0.9% NaCl; give over 2 minutes rg5 Route: IVP; Site: left forearm; 19:40 Follow up: Response: No adverse reaction rg5 Disposition Summary: 01/20/25 20:16 Discharge Ordered Notes: Location: Home sp3 Condition: Stable sp3 Diagnosis - Abdominal pain, unspecified sp3 Followup: sp3 - With: Private Physician - When: Upon discharge from the Emergency Department - Reason: Continuance of care Discharge Instructions: - Discharge Summary Sheet sp3 - Abdominal Pain, Adult sp3 Forms: - Medication Reconciliation Form sp3 - Antibiotic Education sp3 - Prescription Opioid Use sp3 - Patient Portal Instructions sp3 - Leadership Thank You Letter sp3 Prescriptions: - dicyclomine 20 mg Oral tablet - take 1 tablet ORAL route 3 times per day; 20 tablet; Refills: 0, Product sp3 Selection Permitted Signatures: Dispatcher [employer] EDMS Dinesh Moss DO DO ms3 Gabriel Chavez MD MD sp3 Ben Sherman RN RN rg5
--- NOTE | 2025-01-20 20:16 | ER ---
Nurse's Notes [facility] Name: Jim Porras Age: 55 yrs Sex: Male : 1970 Arrival Date: 01/20/2025 Time: 17:45 Bed 14 Private MD: Diagnosis: Abdominal pain, unspecified Presentation: 01/20 17:57 Chief complaint: EMS states: patient had the worse pain today, its been going for 5-6 rg5 days now. Coronavirus screen: Client denies travel out of the [place] in the last 14 days. Ebola Screen: Patient negative for fever greater than or equal to 101.5 degrees Fahrenheit, and additional compatible Ebola Virus Disease symptoms Patient denies exposure to infectious person. Patient denies travel to an Ebola-affected area in the 21 days before illness onset. Initial Sepsis Screen: Does the patient meet any 2 criteria? No. Patient's initial sepsis screen is negative. Does the patient have a suspected source of infection? No. Patient's initial sepsis screen is negative. Risk Assessment: Do you want to hurt yourself or someone else? Patient reports no desire to harm self or others. Onset of symptoms was January 20, 2025. Care prior to arrival: Medication(s) given: Normal saline infusion, 1000 mL, zofran 4 mg, IV initiated. 20 GA, in the left forearm, Oxygen administered. via nasal cannula, 3 L. 17:57 Method Of Arrival: EMS: [facility]5 17:57 Acuity: TISHA 3 rg5 Triage Assessment: 18:02 General: Appears uncomfortable, Behavior is calm, appropriate for age, Smells of rg5 alcohol. Pain: Complains of pain in right upper quadrant Pain currently is 10 out of 10 on a pain scale. Quality of pain is described as aching, Pain began 2-3 days ago. EENT: No signs and/or symptoms were reported regarding the EENT system. Neuro: Level of Consciousness is awake, alert, obeys commands, Oriented to person, place, time, situation. Cardiovascular: Denies chest pain, Patient's skin is warm and dry. Respiratory: Airway is patent Respiratory effort is even, unlabored. GI: Abdomen is flat, non-distended. : Reports inability to void, since 2-3days. Derm: Skin is intact, Skin is dry, Skin is normal, Skin temperature is warm. Musculoskeletal: Circulation, motion, and sensation intact. Range of motion: intact in all extremities. Historical: - Allergies: 18:02 No Known Allergies; rg5 - PSHx: 18:02 Cholecystectomy; rg5 - Immunization history:: Adult Immunizations not up to date. - Infectious Disease History:: Denies. - Social history:: Smoking status: unknown. Screenin:02 [facility] ED Fall Risk Assessment (Adult) History of falling in the last 3 months, rg5 including since admission Confusion or Disorientation No (0 pts) Intoxicated or Sedated No (0 pts) Impaired Gait No (0 pts) Mobility Assist Device Used No (0 pt) Altered Elimination No (0 pt) Score/Fall Risk Level 0 - 2 = Low Risk Oriented to surroundings, Maintained a safe environment. Abuse screen: Denies threats or abuse. Nutritional screening: No deficits noted. Tuberculosis screening: No symptoms or risk factors identified. Assessment: 18:05 General: Appears uncomfortable, Behavior is calm, cooperative, appropriate for age. rg5 Pain: Complains of pain in right upper quadrant. 19:02 Reassessment: No changes from previously documented assessment. Patient and/or family rg5 updated on plan of care and expected duration. Pain level reassessed. Patient is alert, oriented x 3, equal unlabored respirations, skin warm/dry/pink. 20:10 Reassessment: No changes from previously documented assessment. Patient and/or family rg5 updated on plan of care and expected duration. Pain level reassessed. Patient is alert, oriented x 3, equal unlabored respirations, skin warm/dry/pink. Vital Signs: 18:02 BP 108 / 81; Pulse 100; Resp 19; Temp 98.1; Pulse Ox 100% ; Weight 61 kg; Height 5 ft. rg5 9 in. ; Pain 10/10; 19:00 BP 132 / 95; Pulse 89; Resp 19; Pulse Ox 95% on 2 lpm NC; rg5 20:09 BP 133 / 91; Pulse 91; Resp 18; Pulse Ox 97% on 2 lpm NC; Pain 7/10; rg5 18:02 Body Mass Index 19.86 (61.00 kg, 175.26 cm) rg5 18:02 Pain Scale: Adult rg5 20:09 Pain Scale: Adult rg5 ED Course: 17:47 Patient arrived in ED. bd 17:49 Dinesh Moss DO is Attending Physician. ms3 17:56 Ben Sherman, RN is Primary Nurse. rg5 18:02 Triage completed. rg5 18:02 Arm band placed on. rg5 19:02 Attending Physician role handed off by Dinesh Moss DO ms3 19:02 Gabriel Chavez MD is Attending Physician. ms3 19:02 Patient has correct armband on for positive identification. Bed in low position. Call rg5 light in reach. Side rails up X 1. Door closed. Noise minimized. Warm blanket given. Pillow given. 19:02 No provider procedures requiring assistance completed. Inserted saline lock: 20 gauge rg5 in right antecubital area, using aseptic technique. Blood collected. Flushed with 10 mL NS. Oxygen administration via nasal cannula \T\ 3L/min. 19:03 CT Abd/Pelvis - IV Contrast Only In Process Unspecified. EDMS 20:33 Provided Education on: post er care. rg5 20:33 IV discontinued, bleeding controlled, No redness/swelling at site. Pressure dressing rg5 applied. Administered Medications: 18:09 Drug: NS 0.9% IV 1000 ml IV at 1 bolus Per protocol; to be given as a bolus over 60 rg5 minutes Route: IV; Rate: 1 bolus; Site: left forearm; 20:00 Follow up: IV Status: Completed infusion; IV Intake: 1000ml rg5 18:26 Drug: Famotidine IVP 20 mg IVP once; dilute with 10 mL 0.9% NaCl; give over 2 minutes rg5 Route: IVP; Site: left forearm; 19:40 Follow up: Response: No adverse reaction rg5 Medication: 18:12 VIS not applicable for this client. rg5 Intake: 20:00 IV: 1000ml; Total: 1000ml. rg5 Outcome: 20:16 Discharge ordered by . sp3 20:33 Discharged to home via wheelchair, rg5 20:33 Condition: stable 20:33 Discharge instructions given to patient, Instructed on discharge instructions, Demonstrated understanding of instructions, Prescriptions given X 1, 20:34 Patient left the ED. rg5 Signatures: Dispatcher [employer] EDMS Coleen Ruiz Dinesh Moss DO DO ms3 Gabriel Chavez MD MD sp3 eBn Sherman, RN RN rg5 Corrections: (The following items were deleted from the chart) 19:12 19:00 BP 139 / 82; Pulse 96bpm; Resp 19bpm; Pulse Ox 95% 3 lpm Nasal Cannula; rg5 rg5 20:10 20:09 BP 133 / 91; Pulse 91bpm; Resp 18bpm; Pulse Ox 97% 2 lpm Nasal Cannula; rg5 rg5
[2025-01-20 20:42] VITALS: TEMP 98.1
[2025-01-20 21:08] VITALS: BP 133/91; O2SAT 97
== END 2025-01-20 20:34 | disposition home or self-care (01) ==
LOC: ER 17:45
DX: R10.9 Unspecified abdominal pain (principal); Z90.49 Acquired absence of other specified parts of digestive tract
CPT/HCPCS: 36415; 74177; 80053; 83690; 85025; 96361; 96374; 99285; J7030; Q9967